=== PATIENT | male | born 1960 | race Caucasian/White ===

== ENCOUNTER 2018-06-02 13:36 | Inpatient (IN) | payer MEDICARE, OTHER, MEDICAID ==
[2018-06-02] MEDS ORDERED: DEXTROSE 50% 50 ML SYRINGE IV (14:00)
[2018-06-02 14:07] LABS: ADD MAN DIFF? NO
[2018-06-02 14:08] LABS: BASOPHILS % 0.3 % (0.0-2.0); EOSINOPHILS # 0.2 10^3/ul (0.0-0.5); EOSINOPHILS % 3.5 % (0.0-7.0); HEMATOCRIT 35.9 % (42.0-52.0); HEMOGLOBIN 11.9 g/dl (14.0-18.0); LYMPHOCYTES # 1.5 10^3/ul (0.8-2.9); LYMPHOCYTES % 23.9 % (15.0-51.0); MEAN CORPUSCULAR HEMOGLOBIN 30.4 pg (29.0-33.0); MEAN CORPUSCULAR HGB CONC 33.1 g/dl (32.0-37.0); MEAN CORPUSCULAR VOLUME 91.8 fl (82.0-101.0); MEAN PLATELET VOLUME 8.2 fl (7.4-10.4); MONOCYTE # 0.6 10^3/ul (0.3-0.9); MONOCYTES % 10.2 % (0.0-11.0); NEUTROPHIL # 3.8 10^3/ul (1.6-7.5); NEUTROPHILS % 61.8 % (39.0-77.0); PLATELET COUNT 142 10^3/UL (140-415); RED BLOOD COUNT 3.91 10^6/ul (4.70-6.10); RED CELL DISTRIBUTION WIDTH 12.6 % (11.5-14.5)
[2018-06-02 14:08] LABS: WHITE BLOOD COUNT 6.1 10^3/ul (4.8-10.8)
[2018-06-02] MEDS: ALBUTEROL 0.5% (NEB) 2.5 MG/0.5 ML AMP INH (14:09)
[2018-06-02 14:26] LABS: ALANINE AMINOTRANSFERASE 18 IU/L (13-69); ALBUMIN 4.4 g/dl (3.3-4.9); ALBUMIN/GLOBULIN RATIO 1.07; ALKALINE PHOSPHATASE 121 IU/L (42-121); ANION GAP 28 (8-16); ASPARTATE AMINO TRANSFERASE 15 IU/L (15-46); CALCIUM 10.5 mg/dl (8.4-10.2); CARBON DIOXIDE 25 mmol/L (21-31); CHLORIDE 95 mmol/L (97-110); CREATININE 10.43 mg/dl (0.61-1.24); GLUCOSE 138 mg/dl (70-220); MAGNESIUM 3.7 mg/dl (1.7-2.5); PHOSPHORUS 5.4 mg/dl (2.5-4.9); SODIUM 142 mmol/L (135-144); TOTAL PROTEIN 8.5 g/dl (6.1-8.1)
[2018-06-02 14:27] LABS: INR 0.96; PROTIME 12.9 Sec (11.9-14.9)
[2018-06-02 14:28] LABS: PARTIAL THROMBOPLASTIN TIME 31.8 Sec (25.0-35.0)
[2018-06-02 14:34] LABS: POTASSIUM 6.3 mmol/L (3.5-5.1)
[2018-06-02 14:35] LABS: BLOOD UREA NITROGEN 137 mg/dl (7-20)
[2018-06-02 14:36] LABS: TROPONIN-I < 0.012 ng/ml (0.000-0.120)
[2018-06-02] MEDS: ONDANSETRON 4 MG INJ IV (14:39)
[2018-06-02] MEDS: DEXTROSE 50% 50 ML SYRINGE IV (14:39)
[2018-06-02] MEDS: CA CHLORIDE 10% 10 ML SYRINGE IV (14:39)
[2018-06-02] MEDS: INSULIN REGULAR, HUMAN 100 UNIT/1 ML 3ML VIAL IVP (14:40)
[2018-06-02] MEDS ORDERED: ERTAPENEM SODIUM 0.5 GM in SOD CHLORIDE 0.9% 100 ML IVPB (18:00)
[2018-06-02] MEDS ORDERED: SEVELAMER CARBONATE 0.8 GM PKT PO ×2 (18:00→21:00)
[2018-06-02] MEDS: ERTAPENEM SODIUM 0.5 GM in SOD CHLORIDE 0.9% 100 ML IVPB (18:10)
[2018-06-02] MEDS ORDERED: HYDROCODONE/APAP (5/325) TAB PO ×2 (19:30→22:30)
[2018-06-02] MEDS: DORZOLAMIDE/TIMOLOL 10 ML OPH BOTH EYES (21:00)
[2018-06-02] MEDS: HYDROCODONE/APAP (5/325) TAB PO (21:20)
[2018-06-02] MEDS: SEVELAMER CARBONATE 800 MG TABLET PO (21:20)
[2018-06-02 21:40] LABS: HEPATITIS B SURFACE ANTIGEN NEGATIVE (NEGATIVE)
[2018-06-02] MEDS ORDERED: BISACODYL 10 MG SUPP PR (22:30)
[2018-06-02] MEDS ORDERED: NACL 0.9% 3 ML SYG IV (22:30)
[2018-06-03] MEDS: ACCU-CHEK XX (01:13)
[2018-06-03] MEDS: morphine 2 MG INJ IV ×4 (01:20→20:49)
[2018-06-03] MEDS ORDERED: GLUCAGON 1 MG INJ IM (01:30)
[2018-06-03] MEDS ORDERED: GLUCOSE GEL 15 GRAM TUBE BUCCAL (01:30)
[2018-06-03] MEDS ORDERED: DEXTROSE 50% 50 ML SYRINGE IV ×2 (01:30)
[2018-06-03] MEDS ORDERED: GLUCOSE GEL 15 GRAM TUBE PO ×2 (01:30)
[2018-06-03 06:46] LABS: ADD MAN DIFF? NO
[2018-06-03 06:54] LABS: BASOPHILS % 0.2 % (0.0-2.0); EOSINOPHILS # 0.1 10^3/ul (0.0-0.5); EOSINOPHILS % 0.7 % (0.0-7.0); HEMATOCRIT 33.3 % (42.0-52.0); HEMOGLOBIN 10.9 g/dl (14.0-18.0); MEAN CORPUSCULAR HEMOGLOBIN 29.6 pg (29.0-33.0); MEAN CORPUSCULAR HGB CONC 32.7 g/dl (32.0-37.0); MEAN CORPUSCULAR VOLUME 90.5 fl (82.0-101.0); MEAN PLATELET VOLUME 8.6 fl (7.4-10.4); MONOCYTE # 0.7 10^3/ul (0.3-0.9); MONOCYTES % 8.6 % (0.0-11.0); NEUTROPHIL # 6.3 10^3/ul (1.6-7.5); NEUTROPHILS % 78.3 % (39.0-77.0); PLATELET COUNT 132 10^3/UL (140-415); RED BLOOD COUNT 3.68 10^6/ul (4.70-6.10); RED CELL DISTRIBUTION WIDTH 12.6 % (11.5-14.5)
[2018-06-03 06:54] LABS: WHITE BLOOD COUNT 8.1 10^3/ul (4.8-10.8)
[2018-06-03 07:16] LABS: ALANINE AMINOTRANSFERASE 16 IU/L (13-69); ALBUMIN 4.1 g/dl (3.3-4.9); ALBUMIN/GLOBULIN RATIO 1.17; ALKALINE PHOSPHATASE 105 IU/L (42-121); ANION GAP 19 (8-16); ASPARTATE AMINO TRANSFERASE 22 IU/L (15-46); BILIRUBIN,INDIRECT 0.1 mg/dl (0-1.1); BILIRUBIN,TOTAL 0.1 mg/dl (0.2-1.3); BLOOD UREA NITROGEN 69 mg/dl (7-20); CALCIUM 9.5 mg/dl (8.4-10.2); CARBON DIOXIDE 30 mmol/L (21-31); CHLORIDE 98 mmol/L (97-110); CREATININE 6.13 mg/dl (0.61-1.24); GLUCOSE 94 mg/dl (70-220); POTASSIUM 5.4 mmol/L (3.5-5.1); SODIUM 142 mmol/L (135-144); TOTAL PROTEIN 7.6 g/dl (6.1-8.1)
[2018-06-03] MEDS: SEVELAMER CARBONATE 800 MG TABLET PO ×4 (07:47→20:47)
[2018-06-03] MEDS: INSULIN ASPART [NOVOLOG] 3 ML PEN SC ×4 (07:47→20:46)
[2018-06-03] MEDS: MULTIVIT/CA CARB/B CMPLX/FA TAB PO (08:45)
[2018-06-03] MEDS: FAMOTIDINE 20 MG TAB PO (08:45)
[2018-06-03] MEDS: DORZOLAMIDE/TIMOLOL 10 ML OPH BOTH EYES ×2 (08:45→20:47)
[2018-06-03] MEDS: NIFEdipine (XL) 90 MG TAB PO (08:46)
[2018-06-03] MEDS: HEPARIN 5,000 UNIT/0.5 ML VIAL SC ×2 (08:52→20:48)
[2018-06-03 09:30] LABS: HEMOGLOBIN A1C 6.1 % (0-5.9)
[2018-06-03] MEDS: hydrALAzine 20 MG INJ IV ×2 (13:21→22:51)
[2018-06-03] MEDS: ERTAPENEM SODIUM 0.5 GM in SOD CHLORIDE 0.9% 100 ML IVPB (17:29)
[2018-06-03] MEDS: ONDANSETRON 4 MG INJ IV (17:45)
[2018-06-04] MEDS: morphine 2 MG INJ IV ×6 (00:41→22:36)
[2018-06-04] MEDS: ZOLPIDEM 5 MG TAB PO (00:41)
[2018-06-04] MEDS: ACCU-CHEK XX (02:00)
[2018-06-04 06:52] LABS: ADD MAN DIFF? NO
[2018-06-04 06:57] LABS: WHITE BLOOD COUNT 5.9 10^3/ul (4.8-10.8)
[2018-06-04 06:57] LABS: BASOPHILS % 0.7 % (0.0-2.0); EOSINOPHILS # 0.2 10^3/ul (0.0-0.5); EOSINOPHILS % 2.9 % (0.0-7.0); HEMATOCRIT 32.4 % (42.0-52.0); HEMOGLOBIN 10.4 g/dl (14.0-18.0); LYMPHOCYTES # 1.1 10^3/ul (0.8-2.9); LYMPHOCYTES % 18.9 % (15.0-51.0); MEAN CORPUSCULAR HEMOGLOBIN 29.5 pg (29.0-33.0); MEAN CORPUSCULAR HGB CONC 32.1 g/dl (32.0-37.0); MEAN PLATELET VOLUME 8.4 fl (7.4-10.4); MONOCYTE # 0.7 10^3/ul (0.3-0.9); MONOCYTES % 11.2 % (0.0-11.0); NEUTROPHIL # 3.9 10^3/ul (1.6-7.5); NEUTROPHILS % 66.1 % (39.0-77.0); PLATELET COUNT 134 10^3/UL (140-415); RED BLOOD COUNT 3.52 10^6/ul (4.70-6.10); RED CELL DISTRIBUTION WIDTH 12.7 % (11.5-14.5)
[2018-06-04] MEDS: INSULIN ASPART [NOVOLOG] 3 ML PEN SC ×4 (07:55→21:00)
[2018-06-04 07:56] LABS: ANION GAP 20 (8-16); BLOOD UREA NITROGEN 90 mg/dl (7-20); CALCIUM 9.3 mg/dl (8.4-10.2); CARBON DIOXIDE 28 mmol/L (21-31); CHLORIDE 97 mmol/L (97-110); CREATININE 8.18 mg/dl (0.61-1.24); GLUCOSE 94 mg/dl (70-220); SODIUM 139 mmol/L (135-144)
[2018-06-04 08:06] LABS: POTASSIUM 5.5 mmol/L (3.5-5.1)
[2018-06-04] MEDS: DORZOLAMIDE/TIMOLOL 10 ML OPH BOTH EYES ×2 (09:00→21:00)
[2018-06-04] MEDS: HEPARIN 5,000 UNIT/0.5 ML VIAL SC ×2 (09:00→21:38)
[2018-06-04] MEDS: SEVELAMER CARBONATE 800 MG TABLET PO ×5 (09:03→21:23)
[2018-06-04] MEDS: MULTIVIT/CA CARB/B CMPLX/FA TAB PO (09:05)
[2018-06-04] MEDS: NIFEdipine (XL) 90 MG TAB PO (09:05)
[2018-06-04] MEDS: FAMOTIDINE 20 MG TAB PO (09:05)
[2018-06-04] MEDS ORDERED: MUPIROCIN 2% 22 GM OINT TOP (11:30)
[2018-06-04] MEDS ORDERED: VANCOMYCIN IV PER PHARMACY XX (14:30)
[2018-06-04] MEDS: LIDOCAINE 1% (MDV) 20 ML INJ INJ (16:07)
[2018-06-04] MEDS: MUPIROCIN 2% 22 GM OINT TOP (21:23)
[2018-06-04] MEDS: VANCOMYCIN 1.75 GM in SOD CHLORIDE 0.9% 500 ML IVPB (21:24)
[2018-06-05] MEDS: ACETAMINOPHEN 325 MG TAB PO ×3 (00:07→20:59)
[2018-06-05] MEDS: ERTAPENEM SODIUM 0.5 GM in SOD CHLORIDE 0.9% 100 ML IVPB ×2 (01:53→18:05)
[2018-06-05] MEDS: ACCU-CHEK XX (01:57)
[2018-06-05] MEDS: morphine 2 MG INJ IV ×3 (03:06→22:59)
[2018-06-05 06:39] LABS: ADD MAN DIFF? NO
[2018-06-05 06:58] LABS: BASOPHILS % 0.2 % (0.0-2.0); EOSINOPHILS # 0.2 10^3/ul (0.0-0.5); EOSINOPHILS % 2.7 % (0.0-7.0); HEMATOCRIT 32.8 % (42.0-52.0); HEMOGLOBIN 10.6 g/dl (14.0-18.0); LYMPHOCYTES % 18.1 % (15.0-51.0); MEAN CORPUSCULAR HEMOGLOBIN 30.1 pg (29.0-33.0); MEAN CORPUSCULAR HGB CONC 32.3 g/dl (32.0-37.0); MEAN CORPUSCULAR VOLUME 93.2 fl (82.0-101.0); MEAN PLATELET VOLUME 8.7 fl (7.4-10.4); MONOCYTE # 0.7 10^3/ul (0.3-0.9); MONOCYTES % 11.9 % (0.0-11.0); NEUTROPHIL # 3.8 10^3/ul (1.6-7.5); NEUTROPHILS % 66.7 % (39.0-77.0); PLATELET COUNT 128 10^3/UL (140-415); RED BLOOD COUNT 3.52 10^6/ul (4.70-6.10); RED CELL DISTRIBUTION WIDTH 12.2 % (11.5-14.5)
[2018-06-05 06:58] LABS: WHITE BLOOD COUNT 5.6 10^3/ul (4.8-10.8)
[2018-06-05 07:23] LABS: ANION GAP 17 (8-16); BLOOD UREA NITROGEN 47 mg/dl (7-20); CALCIUM 9.4 mg/dl (8.4-10.2); CARBON DIOXIDE 29 mmol/L (21-31); CHLORIDE 97 mmol/L (97-110); GLUCOSE 94 mg/dl (70-220); POTASSIUM 4.7 mmol/L (3.5-5.1); SODIUM 138 mmol/L (135-144)
[2018-06-05] MEDS: INSULIN ASPART [NOVOLOG] 3 ML PEN SC ×4 (07:55→21:00)
[2018-06-05] MEDS: SEVELAMER CARBONATE 800 MG TABLET PO ×4 (08:03→21:00)
[2018-06-05] MEDS: FAMOTIDINE 20 MG TAB PO (08:04)
[2018-06-05] MEDS: NIFEdipine (XL) 90 MG TAB PO (08:07)
[2018-06-05] MEDS: HEPARIN 5,000 UNIT/0.5 ML VIAL SC ×2 (08:11→21:00)
[2018-06-05] MEDS: MUPIROCIN 2% 22 GM OINT TOP ×2 (08:58→21:00)
[2018-06-05] MEDS: MULTIVIT/CA CARB/B CMPLX/FA TAB PO (08:58)
[2018-06-05] MEDS: DORZOLAMIDE/TIMOLOL 10 ML OPH BOTH EYES ×2 (08:58→20:59)
[2018-06-05] MEDS ORDERED: ACETAMINOPHEN 325 MG TAB PO (10:30)
[2018-06-05] MEDS: ONDANSETRON 4 MG INJ IV (17:21)
[2018-06-05] MEDS: hydrALAzine 20 MG INJ IV (20:53)
[2018-06-05] MEDS: DOCUSATE SODIUM 100 MG CAP PO (20:59)
[2018-06-05] MEDS: NA POLYST SULFON 15 GM/60 ML BTL PO (21:00)
[2018-06-06] MEDS: ACCU-CHEK XX (02:00)
[2018-06-06 06:52] LABS: ADD MAN DIFF? NO
[2018-06-06 06:54] LABS: BASOPHILS % 0.6 % (0.0-2.0); EOSINOPHILS # 0.2 10^3/ul (0.0-0.5); EOSINOPHILS % 3.1 % (0.0-7.0); HEMATOCRIT 32.6 % (42.0-52.0); HEMOGLOBIN 10.7 g/dl (14.0-18.0); LYMPHOCYTES # 1.1 10^3/ul (0.8-2.9); LYMPHOCYTES % 21.2 % (15.0-51.0); MEAN CORPUSCULAR HEMOGLOBIN 30.5 pg (29.0-33.0); MEAN CORPUSCULAR HGB CONC 32.8 g/dl (32.0-37.0); MEAN CORPUSCULAR VOLUME 92.9 fl (82.0-101.0); MEAN PLATELET VOLUME 8.6 fl (7.4-10.4); MONOCYTE # 0.7 10^3/ul (0.3-0.9); MONOCYTES % 13.6 % (0.0-11.0); NEUTROPHIL # 3.2 10^3/ul (1.6-7.5); NEUTROPHILS % 61.3 % (39.0-77.0); PLATELET COUNT 126 10^3/UL (140-415); RED BLOOD COUNT 3.51 10^6/ul (4.70-6.10); RED CELL DISTRIBUTION WIDTH 12.2 % (11.5-14.5)
[2018-06-06 06:54] LABS: WHITE BLOOD COUNT 5.1 10^3/ul (4.8-10.8)
[2018-06-06 07:26] LABS: ALANINE AMINOTRANSFERASE 35 IU/L (13-69); ALBUMIN 3.6 g/dl (3.3-4.9); ALBUMIN/GLOBULIN RATIO 1.12; ALKALINE PHOSPHATASE 90 IU/L (42-121); ANION GAP 18 (8-16); ASPARTATE AMINO TRANSFERASE 27 IU/L (15-46); BILIRUBIN,INDIRECT 0.1 mg/dl (0-1.1); BILIRUBIN,TOTAL 0.1 mg/dl (0.2-1.3); BLOOD UREA NITROGEN 63 mg/dl (7-20); CALCIUM 9.1 mg/dl (8.4-10.2); CARBON DIOXIDE 29 mmol/L (21-31); CHLORIDE 97 mmol/L (97-110); CREATININE 7.44 mg/dl (0.61-1.24); GLUCOSE 115 mg/dl (70-220); POTASSIUM 5.3 mmol/L (3.5-5.1); SODIUM 139 mmol/L (135-144); TOTAL PROTEIN 6.8 g/dl (6.1-8.1)
[2018-06-06 07:29] LABS: VANCOMYCIN,RANDOM 15.8 ug/ml
[2018-06-06] MEDS: INSULIN ASPART [NOVOLOG] 3 ML PEN SC ×4 (08:00→20:10)
[2018-06-06] MEDS: DORZOLAMIDE/TIMOLOL 10 ML OPH BOTH EYES ×2 (08:19→20:26)
[2018-06-06] MEDS: SEVELAMER CARBONATE 800 MG TABLET PO ×4 (08:19→20:10)
[2018-06-06] MEDS: FAMOTIDINE 20 MG TAB PO (08:20)
[2018-06-06] MEDS: MULTIVIT/CA CARB/B CMPLX/FA TAB PO (08:20)
[2018-06-06] MEDS: HEPARIN 5,000 UNIT/0.5 ML VIAL SC ×2 (08:20→20:13)
[2018-06-06] MEDS: MUPIROCIN 2% 22 GM OINT TOP ×2 (08:21→20:32)
[2018-06-06] MEDS: NIFEdipine (XL) 90 MG TAB PO (08:21)
[2018-06-06] MEDS: NA POLYST SULFON 15 GM/60 ML BTL PO (08:23)
[2018-06-06] MEDS: LIDOCAINE 1% (MDV) 10 ML INJ INJ (12:14)
[2018-06-06] MEDS: morphine 2 MG INJ IV ×2 (12:19→20:22)
[2018-06-06] MEDS: ACETAMINOPHEN 325 MG TAB PO (15:10)
[2018-06-06] MEDS: VANCOMYCIN 1 GM 250 ML IVPB (16:31)
[2018-06-06] MEDS: EPOETIN 4000 UNITS/1 ML INJ (ESRD) IV (16:34)
[2018-06-06] MEDS: ERTAPENEM SODIUM 0.5 GM in SOD CHLORIDE 0.9% 100 ML IVPB (18:37)
[2018-06-06] MEDS: DOCUSATE SODIUM 100 MG CAP PO (20:10)
[2018-06-07] MEDS: ACCU-CHEK XX (02:00)
[2018-06-07] MEDS: morphine 2 MG INJ IV ×2 (05:23→10:57)
[2018-06-07] MEDS: hydrALAzine 20 MG INJ IV (05:32)
[2018-06-07 06:16] LABS: ADD MAN DIFF? NO
[2018-06-07 06:27] LABS: WHITE BLOOD COUNT 5.4 10^3/ul (4.8-10.8)
[2018-06-07 06:27] LABS: BASOPHILS % 0.2 % (0.0-2.0); EOSINOPHILS # 0.1 10^3/ul (0.0-0.5); EOSINOPHILS % 1.7 % (0.0-7.0); HEMATOCRIT 33.2 % (42.0-52.0); HEMOGLOBIN 10.9 g/dl (14.0-18.0); LYMPHOCYTES # 0.9 10^3/ul (0.8-2.9); LYMPHOCYTES % 17.2 % (15.0-51.0); MEAN CORPUSCULAR HEMOGLOBIN 30.4 pg (29.0-33.0); MEAN CORPUSCULAR HGB CONC 32.8 g/dl (32.0-37.0); MEAN CORPUSCULAR VOLUME 92.5 fl (82.0-101.0); MEAN PLATELET VOLUME 8.5 fl (7.4-10.4); MONOCYTE # 0.7 10^3/ul (0.3-0.9); MONOCYTES % 12.8 % (0.0-11.0); NEUTROPHIL # 3.7 10^3/ul (1.6-7.5); NEUTROPHILS % 67.9 % (39.0-77.0); PLATELET COUNT 122 10^3/UL (140-415); RED BLOOD COUNT 3.59 10^6/ul (4.70-6.10); RED CELL DISTRIBUTION WIDTH 11.9 % (11.5-14.5)
[2018-06-07 06:52] LABS: ANION GAP 18 (8-16); BLOOD UREA NITROGEN 36 mg/dl (7-20); CALCIUM 9.5 mg/dl (8.4-10.2); CARBON DIOXIDE 30 mmol/L (21-31); CHLORIDE 96 mmol/L (97-110); CREATININE 5.33 mg/dl (0.61-1.24); GLUCOSE 89 mg/dl (70-220); POTASSIUM 4.8 mmol/L (3.5-5.1); SODIUM 139 mmol/L (135-144)
[2018-06-07] MEDS: SEVELAMER CARBONATE 800 MG TABLET PO ×4 (07:35→20:27)
[2018-06-07] MEDS: ACETAMINOPHEN 325 MG TAB PO (07:51)
[2018-06-07] MEDS: NIFEdipine (XL) 90 MG TAB PO (07:51)
[2018-06-07] MEDS: INSULIN ASPART [NOVOLOG] 3 ML PEN SC ×4 (07:52→20:27)
[2018-06-07] MEDS: FAMOTIDINE 20 MG TAB PO (07:52)
[2018-06-07] MEDS: DORZOLAMIDE/TIMOLOL 10 ML OPH BOTH EYES ×2 (07:52→20:26)
[2018-06-07] MEDS: HEPARIN 5,000 UNIT/0.5 ML VIAL SC ×2 (07:53→20:32)
[2018-06-07] MEDS: MUPIROCIN 2% 22 GM OINT TOP ×2 (07:53→20:28)
[2018-06-07] MEDS: MULTIVIT/CA CARB/B CMPLX/FA TAB PO (07:53)
[2018-06-07] MEDS: ERTAPENEM SODIUM 0.5 GM in SOD CHLORIDE 0.9% 100 ML IVPB (17:18)
[2018-06-07] MEDS: DOCUSATE SODIUM 100 MG CAP PO (20:27)
[2018-06-08] MEDS: ACCU-CHEK XX (01:25)
[2018-06-08] MEDS: morphine 2 MG INJ IV (02:16)
[2018-06-08 04:57] LABS: ADD MAN DIFF? NO
[2018-06-08 05:03] LABS: BASOPHILS % 0.4 % (0.0-2.0); EOSINOPHILS # 0.1 10^3/ul (0.0-0.5); EOSINOPHILS % 2.1 % (0.0-7.0); HEMATOCRIT 31.7 % (42.0-52.0); HEMOGLOBIN 10.3 g/dl (14.0-18.0); LYMPHOCYTES # 1.1 10^3/ul (0.8-2.9); LYMPHOCYTES % 21.3 % (15.0-51.0); MEAN CORPUSCULAR HEMOGLOBIN 29.9 pg (29.0-33.0); MEAN CORPUSCULAR HGB CONC 32.5 g/dl (32.0-37.0); MEAN CORPUSCULAR VOLUME 91.9 fl (82.0-101.0); MEAN PLATELET VOLUME 8.5 fl (7.4-10.4); MONOCYTE # 0.7 10^3/ul (0.3-0.9); MONOCYTES % 13.8 % (0.0-11.0); NEUTROPHIL # 3.2 10^3/ul (1.6-7.5); PLATELET COUNT 118 10^3/UL (140-415); RED BLOOD COUNT 3.45 10^6/ul (4.70-6.10); RED CELL DISTRIBUTION WIDTH 12.2 % (11.5-14.5)
[2018-06-08 05:03] LABS: WHITE BLOOD COUNT 5.2 10^3/ul (4.8-10.8)
[2018-06-08 05:31] LABS: ANION GAP 16 (8-16); BLOOD UREA NITROGEN 50 mg/dl (7-20); CALCIUM 9.3 mg/dl (8.4-10.2); CARBON DIOXIDE 29 mmol/L (21-31); CHLORIDE 100 mmol/L (97-110); CREATININE 7.33 mg/dl (0.61-1.24); GLUCOSE 91 mg/dl (70-220); POTASSIUM 5.3 mmol/L (3.5-5.1); SODIUM 140 mmol/L (135-144)
[2018-06-08] MEDS: SEVELAMER CARBONATE 800 MG TABLET PO ×4 (07:35→20:43)
[2018-06-08] MEDS: INSULIN ASPART [NOVOLOG] 3 ML PEN SC ×4 (08:00→20:55)
[2018-06-08] MEDS: NIFEdipine (XL) 90 MG TAB PO (08:21)
[2018-06-08] MEDS: ACETAMINOPHEN 325 MG TAB PO ×2 (08:21→23:38)
[2018-06-08] MEDS: FAMOTIDINE 20 MG TAB PO (08:24)
[2018-06-08] MEDS: DORZOLAMIDE/TIMOLOL 10 ML OPH BOTH EYES ×2 (08:24→20:43)
[2018-06-08] MEDS: MULTIVIT/CA CARB/B CMPLX/FA TAB PO (08:25)
[2018-06-08] MEDS: HEPARIN 5,000 UNIT/0.5 ML VIAL SC ×2 (08:25→20:54)
[2018-06-08] MEDS: MUPIROCIN 2% 22 GM OINT TOP ×2 (08:25→20:43)
[2018-06-08] MEDS: DOCUSATE SODIUM 100 MG CAP PO (20:43)
[2018-06-08] MEDS: hydrALAzine 20 MG INJ IV (20:45)
[2018-06-09] MEDS: morphine 2 MG INJ IV ×2 (01:41→20:47)
[2018-06-09] MEDS: ACCU-CHEK XX (02:00)
[2018-06-09] MEDS: hydrALAzine 20 MG INJ IV ×2 (02:48→10:36)
[2018-06-09 05:39] LABS: ADD MAN DIFF? NO
[2018-06-09 05:45] LABS: WHITE BLOOD COUNT 5.5 10^3/ul (4.8-10.8)
[2018-06-09 05:45] LABS: BASOPHILS % 0.4 % (0.0-2.0); EOSINOPHILS # 0.2 10^3/ul (0.0-0.5); EOSINOPHILS % 3.2 % (0.0-7.0); HEMATOCRIT 30.7 % (42.0-52.0); HEMOGLOBIN 10.1 g/dl (14.0-18.0); LYMPHOCYTES # 1.1 10^3/ul (0.8-2.9); LYMPHOCYTES % 19.1 % (15.0-51.0); MEAN CORPUSCULAR HEMOGLOBIN 30.1 pg (29.0-33.0); MEAN CORPUSCULAR HGB CONC 32.9 g/dl (32.0-37.0); MEAN CORPUSCULAR VOLUME 91.4 fl (82.0-101.0); MEAN PLATELET VOLUME 8.4 fl (7.4-10.4); MONOCYTE # 0.8 10^3/ul (0.3-0.9); MONOCYTES % 14.3 % (0.0-11.0); NEUTROPHIL # 3.5 10^3/ul (1.6-7.5); NEUTROPHILS % 62.8 % (39.0-77.0); PLATELET COUNT 121 10^3/UL (140-415); RED BLOOD COUNT 3.36 10^6/ul (4.70-6.10); RED CELL DISTRIBUTION WIDTH 12.3 % (11.5-14.5)
[2018-06-09 06:33] LABS: VANCOMYCIN,RANDOM 17.4 ug/ml
[2018-06-09] MEDS: SEVELAMER CARBONATE 800 MG TABLET PO ×4 (07:46→20:45)
[2018-06-09] MEDS: INSULIN ASPART [NOVOLOG] 3 ML PEN SC ×4 (07:46→20:40)
[2018-06-09] MEDS: MUPIROCIN 2% 22 GM OINT TOP ×2 (08:32→20:50)
[2018-06-09] MEDS: FAMOTIDINE 20 MG TAB PO (08:32)
[2018-06-09] MEDS: MULTIVIT/CA CARB/B CMPLX/FA TAB PO (08:32)
[2018-06-09] MEDS: NIFEdipine (XL) 90 MG TAB PO (08:32)
[2018-06-09] MEDS: DORZOLAMIDE/TIMOLOL 10 ML OPH BOTH EYES ×2 (08:32→20:43)
[2018-06-09] MEDS: HEPARIN 5,000 UNIT/0.5 ML VIAL SC ×2 (08:36→20:35)
[2018-06-09] MEDS: LIDOCAINE 1% (MDV) 10 ML INJ INFIL (11:02)
[2018-06-09] MEDS: LIDOCAINE 1% (MPF) 5 ML VIAL INFIL (12:36)
[2018-06-09] MEDS: EPOETIN 4000 UNITS/1 ML INJ (ESRD) IV (17:42)
[2018-06-09] MEDS: VANCOMYCIN 750 MG in SOD CHLORIDE 0.9% 150 ML IVPB ×2 (17:42→17:55)
[2018-06-09] MEDS: ACETAMINOPHEN 325 MG TAB PO (19:23)
[2018-06-09] MEDS: ONDANSETRON 4 MG INJ IV (20:36)
[2018-06-09] MEDS: DOCUSATE SODIUM 100 MG CAP PO (20:45)
[2018-06-09] MEDS: METOCLOPRAMIDE 10 MG INJ IV (22:08)
[2018-06-10] MEDS: hydrALAzine 20 MG INJ IV ×2 (01:39→08:55)
[2018-06-10] MEDS: ACETAMINOPHEN 325 MG TAB PO (01:39)
[2018-06-10] MEDS: ACCU-CHEK XX (01:46)
[2018-06-10] MEDS: PANTOPRAZOLE (EC) 40 MG TAB PO (05:01)
[2018-06-10] MEDS: INSULIN ASPART [NOVOLOG] 3 ML PEN SC ×3 (08:00→18:05)
[2018-06-10] MEDS: SEVELAMER CARBONATE 800 MG TABLET PO ×3 (08:50→17:46)
[2018-06-10] MEDS: NIFEdipine (XL) 90 MG TAB PO (08:50)
[2018-06-10] MEDS: DORZOLAMIDE/TIMOLOL 10 ML OPH BOTH EYES (08:51)
[2018-06-10] MEDS: MULTIVIT/CA CARB/B CMPLX/FA TAB PO (08:51)
[2018-06-10] MEDS: HEPARIN 5,000 UNIT/0.5 ML VIAL SC (08:54)
[2018-06-10] MEDS: MUPIROCIN 2% 22 GM OINT TOP (08:54)
[2018-06-10] MEDS: morphine 2 MG INJ IV ×2 (08:55→14:11)
[2018-06-10 11:58] LABS: ADD MAN DIFF? NO
[2018-06-10 12:09] LABS: BASOPHILS % 0.2 % (0.0-2.0); EOSINOPHILS # 0.1 10^3/ul (0.0-0.5); HEMATOCRIT 30.6 % (42.0-52.0); HEMOGLOBIN 9.9 g/dl (14.0-18.0); LYMPHOCYTES # 1.1 10^3/ul (0.8-2.9); LYMPHOCYTES % 21.1 % (15.0-51.0); MEAN CORPUSCULAR HEMOGLOBIN 30.3 pg (29.0-33.0); MEAN CORPUSCULAR HGB CONC 32.4 g/dl (32.0-37.0); MEAN CORPUSCULAR VOLUME 93.6 fl (82.0-101.0); MEAN PLATELET VOLUME 8.5 fl (7.4-10.4); MONOCYTE # 0.7 10^3/ul (0.3-0.9); NEUTROPHIL # 3.2 10^3/ul (1.6-7.5); NEUTROPHILS % 62.3 % (39.0-77.0); PLATELET COUNT 138 10^3/UL (140-415); RED BLOOD COUNT 3.27 10^6/ul (4.70-6.10); RED CELL DISTRIBUTION WIDTH 12.2 % (11.5-14.5)
[2018-06-10 12:09] LABS: WHITE BLOOD COUNT 5.1 10^3/ul (4.8-10.8)
[2018-06-10] MEDS ORDERED: NIFEdipine (XL) 90 MG TAB PO ×2 (12:24→21:00)
[2018-06-10 12:25] LABS: ALANINE AMINOTRANSFERASE 41 IU/L (13-69); ALBUMIN 3.7 g/dl (3.3-4.9); ALBUMIN/GLOBULIN RATIO 1.23; ALKALINE PHOSPHATASE 94 IU/L (42-121); AMYLASE 53 U/L (11-123); ANION GAP 16 (8-16); ASPARTATE AMINO TRANSFERASE 25 IU/L (15-46); BILIRUBIN,INDIRECT 0.1 mg/dl (0-1.1); BILIRUBIN,TOTAL 0.1 mg/dl (0.2-1.3); BLOOD UREA NITROGEN 38 mg/dl (7-20); CALCIUM 9.5 mg/dl (8.4-10.2); CARBON DIOXIDE 29 mmol/L (21-31); CHLORIDE 98 mmol/L (97-110); CREATININE 7.05 mg/dl (0.61-1.24); GLUCOSE 133 mg/dl (70-220); LIPASE 99 U/L (23-300); POTASSIUM 5.1 mmol/L (3.5-5.1); SODIUM 138 mmol/L (135-144); TOTAL PROTEIN 6.7 g/dl (6.1-8.1)
[2018-06-10] MEDS: ATENOLOL 100 MG TAB PO (14:10)
[2018-06-10] MEDS ORDERED: NIFEdipine (XL) 60 MG TAB PO (21:00)
== END 2018-06-10 19:40 | DRG 640 ==
LOC: PP2 06-05 10:41 → TEL 06-03 22:47 → E/R 13:36 → TEL 06-03 23:03
PROVIDERS: Internal Medicine
PROC: 5A1D70Z Performance of Urinary Filtration, Intermittent, Less than 6 Hours Per Day (ICD-10-PCS; principal; 2018-06-02)
DX: E87.5 Hyperkalemia (principal); N18.6 End stage renal disease; J18.9 Pneumonia, unspecified organism; I12.0 Hypertensive chronic kidney disease with stage 5 chronic kidney disease or end stage renal disease; E11.22 Type 2 diabetes mellitus with diabetic chronic kidney disease; D63.1 Anemia in chronic kidney disease; G89.29 Other chronic pain; M54.5 Low back pain; F41.9 Anxiety disorder, unspecified; H54.8 Legal blindness, as defined in USA; Z22.322 Carrier or suspected carrier of Methicillin resistant Staphylococcus aureus; Z91.14 Patient's other noncompliance with medication regimen; Z99.2 Dependence on renal dialysis
CPT/HCPCS: 36415; 71045; 80048; 80053; 80202; 82150; 82962; 83036; 83690; 83735; 84100; 84484; 85025; 85610; 85730; 87081; 87340; 90935; 93005; 94664; 96374; 96375; 97116; 97162; 97530; 99291-25

== ENCOUNTER 2018-12-05 21:39 | Inpatient (IN) | payer MEDICARE, OTHER ==
[2018-12-05] MEDS: ONDANSETRON 4 MG INJ IV (22:04)
[2018-12-05] MEDS: morphine 4 MG/ML VIAL IV (22:05)
[2018-12-05 22:11] LABS: ADD MAN DIFF? NO
[2018-12-05 22:13] LABS: BASOPHILS % 0.3 % (0.0-2.0); EOSINOPHILS # 0.2 10^3/ul (0.0-0.5); EOSINOPHILS % 1.7 % (0.0-7.0); HEMATOCRIT 36.4 % (42.0-52.0); HEMOGLOBIN 11.5 g/dl (14.0-18.0); LYMPHOCYTES # 0.9 10^3/ul (0.8-2.9); LYMPHOCYTES % 7.9 % (15.0-51.0); MEAN CORPUSCULAR HEMOGLOBIN 30.7 pg (29.0-33.0); MEAN CORPUSCULAR HGB CONC 31.6 g/dl (32.0-37.0); MEAN CORPUSCULAR VOLUME 97.1 fl (82.0-101.0); MEAN PLATELET VOLUME 8.7 fl (7.4-10.4); MONOCYTE # 0.9 10^3/ul (0.3-0.9); MONOCYTES % 7.6 % (0.0-11.0); NEUTROPHIL # 9.5 10^3/ul (1.6-7.5); PLATELET COUNT 210 10^3/UL (140-415); RED BLOOD COUNT 3.75 10^6/ul (4.70-6.10); RED CELL DISTRIBUTION WIDTH 13.1 % (11.5-14.5)
[2018-12-05 22:13] LABS: WHITE BLOOD COUNT 11.6 10^3/ul (4.8-10.8)
[2018-12-05 22:34] LABS: ALANINE AMINOTRANSFERASE 8 IU/L (13-69); ALBUMIN 4.4 g/dl (3.3-4.9); ALBUMIN/GLOBULIN RATIO 1.04; ALKALINE PHOSPHATASE 148 IU/L (42-121); ANION GAP 20 (5-13); ASPARTATE AMINO TRANSFERASE 14 IU/L (15-46); BLOOD UREA NITROGEN 95 mg/dl (7-20); CALCIUM 10.8 mg/dl (8.4-10.2); CARBON DIOXIDE 23 mmol/L (21-31); CHLORIDE 94 mmol/L (97-110); CREATININE 8.14 mg/dl (0.61-1.24); Estimated GFR 7 mL/min (>60); GLUCOSE 241 mg/dl (70-220); LIPASE 151 U/L (23-300); POTASSIUM 5.9 mmol/L (3.5-5.1); SODIUM 137 mmol/L (135-144); TOTAL PROTEIN 8.6 g/dl (6.1-8.1)
[2018-12-05] MEDS: NA BICARBONATE 8.4% 50 ML SYG IV (22:53)
[2018-12-05] MEDS: CA CHLORIDE 10% 10 ML SYRINGE IV (22:53)
[2018-12-06] MEDS ORDERED: ONDANSETRON 4 MG INJ IV
[2018-12-06] MEDS ORDERED: ACETAMINOPHEN 325 MG TAB PO
[2018-12-06] MEDS: morphine 4 MG/ML VIAL IV ×5 (00:10→22:08)
[2018-12-06] MEDS ORDERED: BISACODYL 10 MG SUPP PR (02:00)
[2018-12-06] MEDS: HYDROCODONE/APAP (5/325) TAB PO ×4 (02:46→22:36)
[2018-12-06] MEDS: MULTIVIT/CA CARB/B CMPLX/FA TAB PO (08:33)
[2018-12-06] MEDS: SEVELAMER CARBONATE 0.8 GM PKT PO ×4 (08:34→20:19)
[2018-12-06] MEDS: CINACALCET 30 MG TAB PO ×2 (08:34→20:20)
[2018-12-06] MEDS: morphine (ER) 30 MG TAB PO (08:35)
[2018-12-06] MEDS: NA POLYST SULFON 15 GM/60 ML BTL PO ×2 (08:35→21:41)
[2018-12-06] MEDS: DORZOLAMIDE/TIMOLOL 10 ML OPH BOTH EYES ×2 (08:35→20:21)
[2018-12-06] MEDS: ATENOLOL 100 MG TAB PO (08:36)
[2018-12-06] MEDS: ACETAMINOPHEN 325 MG TAB PO (15:19)
[2018-12-06] MEDS: DOCUSATE SODIUM 100 MG CAP PO (20:20)
[2018-12-06] MEDS: HEPARIN 5,000 UNIT/1 ML VIAL SC (20:26)
[2018-12-07] MEDS: morphine 4 MG/ML VIAL IV ×3 (02:13→14:09)
[2018-12-07] MEDS ORDERED: ONDANSETRON 4 MG INJ (04:26)
[2018-12-07] MEDS: ONDANSETRON 4 MG INJ IV (04:29)
[2018-12-07 06:35] LABS: ADD MAN DIFF? NO
[2018-12-07] MEDS: HYDROCODONE/APAP (5/325) TAB PO ×3 (06:37→21:06)
[2018-12-07 06:54] LABS: BASOPHILS % 0.2 % (0.0-2.0); EOSINOPHILS # 0.2 10^3/ul (0.0-0.5); EOSINOPHILS % 1.2 % (0.0-7.0); HEMATOCRIT 31.8 % (42.0-52.0); HEMOGLOBIN 10.1 g/dl (14.0-18.0); LYMPHOCYTES # 0.9 10^3/ul (0.8-2.9); LYMPHOCYTES % 6.3 % (15.0-51.0); MEAN CORPUSCULAR HEMOGLOBIN 31.3 pg (29.0-33.0); MEAN CORPUSCULAR HGB CONC 31.8 g/dl (32.0-37.0); MEAN CORPUSCULAR VOLUME 98.5 fl (82.0-101.0); MEAN PLATELET VOLUME 8.7 fl (7.4-10.4); MONOCYTE # 0.9 10^3/ul (0.3-0.9); MONOCYTES % 6.4 % (0.0-11.0); NEUTROPHIL # 11.9 10^3/ul (1.6-7.5); NEUTROPHILS % 85.3 % (39.0-77.0); PLATELET COUNT 194 10^3/UL (140-415); RED BLOOD COUNT 3.23 10^6/ul (4.70-6.10)
[2018-12-07 07:10] LABS: ANION GAP 18 (5-13); CALCIUM 10.1 mg/dl (8.4-10.2); CARBON DIOXIDE 24 mmol/L (21-31); CHLORIDE 97 mmol/L (97-110); CREATININE 10.55 mg/dl (0.61-1.24); Estimated GFR 5 mL/min (>60); GLUCOSE 125 mg/dl (70-220); SODIUM 139 mmol/L (135-144)
[2018-12-07 07:19] LABS: URIC ACID 4.9 mg/dl (3.1-7.9)
[2018-12-07 07:33] LABS: BLOOD UREA NITROGEN 122 mg/dl (7-20); POTASSIUM 6.1 mmol/L (3.5-5.1)
[2018-12-07] MEDS: CINACALCET 30 MG TAB PO ×2 (08:41→21:06)
[2018-12-07] MEDS: SEVELAMER CARBONATE 0.8 GM PKT PO ×4 (08:42→21:04)
[2018-12-07] MEDS: NA POLYST SULFON 15 GM/60 ML BTL PO ×3 (08:42→21:07)
[2018-12-07] MEDS: DORZOLAMIDE/TIMOLOL 10 ML OPH BOTH EYES ×2 (08:42→21:07)
[2018-12-07] MEDS: ATENOLOL 100 MG TAB PO (08:43)
[2018-12-07] MEDS: MULTIVIT/CA CARB/B CMPLX/FA TAB PO (08:43)
[2018-12-07] MEDS: HEPARIN 5,000 UNIT/1 ML VIAL SC ×2 (08:49→21:15)
[2018-12-07] MEDS: morphine (ER) 30 MG TAB PO (08:49)
[2018-12-07] MEDS ORDERED: SODIUM CHLORIDE 0.9% 1L BAG IV (09:00)
[2018-12-07 10:17] LABS: HEPATITIS B SURFACE ANTIGEN NEGATIVE (NEGATIVE)
[2018-12-07] MEDS: ACETAMINOPHEN 325 MG TAB PO (15:46)
[2018-12-07] MEDS: LACTULOSE 30ML CUP PO (16:14)
[2018-12-07] MEDS: DOCUSATE SODIUM 100 MG CAP PO (21:06)
[2018-12-08] MEDS: morphine 4 MG/ML VIAL IV ×2 (02:25→20:22)
[2018-12-08 05:41] LABS: ADD MAN DIFF? NO
[2018-12-08 05:47] LABS: WHITE BLOOD COUNT 12.5 10^3/ul (4.8-10.8)
[2018-12-08 05:47] LABS: BASOPHILS % 0.1 % (0.0-2.0); EOSINOPHILS # 0.3 10^3/ul (0.0-0.5); EOSINOPHILS % 2.2 % (0.0-7.0); HEMATOCRIT 33.8 % (42.0-52.0); HEMOGLOBIN 10.6 g/dl (14.0-18.0); MEAN CORPUSCULAR HEMOGLOBIN 30.4 pg (29.0-33.0); MEAN CORPUSCULAR HGB CONC 31.4 g/dl (32.0-37.0); MEAN CORPUSCULAR VOLUME 96.8 fl (82.0-101.0); MEAN PLATELET VOLUME 8.5 fl (7.4-10.4); MONOCYTE # 1.2 10^3/ul (0.3-0.9); MONOCYTES % 9.5 % (0.0-11.0); NEUTROPHILS % 79.8 % (39.0-77.0); PLATELET COUNT 185 10^3/UL (140-415); RED BLOOD COUNT 3.49 10^6/ul (4.70-6.10); RED CELL DISTRIBUTION WIDTH 13.2 % (11.5-14.5)
[2018-12-08 06:25] LABS: ANION GAP 18 (5-13); BLOOD UREA NITROGEN 69 mg/dl (7-20); CALCIUM 9.4 mg/dl (8.4-10.2); CARBON DIOXIDE 29 mmol/L (21-31); CHLORIDE 92 mmol/L (97-110); CREATININE 7.53 mg/dl (0.61-1.24); Estimated GFR 7 mL/min (>60); GLUCOSE 103 mg/dl (70-220); POTASSIUM 4.4 mmol/L (3.5-5.1); SODIUM 139 mmol/L (135-144)
[2018-12-08] MEDS: HYDROCODONE/APAP (5/325) TAB PO ×2 (06:27→23:30)
[2018-12-08] MEDS: SEVELAMER CARBONATE 0.8 GM PKT PO ×4 (08:54→20:25)
[2018-12-08] MEDS: DORZOLAMIDE/TIMOLOL 10 ML OPH BOTH EYES ×2 (08:54→20:26)
[2018-12-08] MEDS: NA POLYST SULFON 15 GM/60 ML BTL PO (08:54)
[2018-12-08] MEDS: MULTIVIT/CA CARB/B CMPLX/FA TAB PO (08:58)
[2018-12-08] MEDS: ATENOLOL 100 MG TAB PO (08:59)
[2018-12-08] MEDS: CINACALCET 30 MG TAB PO ×2 (08:59→20:26)
[2018-12-08] MEDS: morphine (ER) 30 MG TAB PO (08:59)
[2018-12-08] MEDS: HEPARIN 5,000 UNIT/1 ML VIAL SC ×2 (09:38→20:34)
[2018-12-08] MEDS: CEFEPIME 1GM/50 ML (PMX) 50 ML IVPB (20:21)
[2018-12-08] MEDS: DOCUSATE SODIUM 100 MG CAP PO (20:26)
[2018-12-09 06:12] LABS: ADD MAN DIFF? NO
[2018-12-09 06:25] LABS: BASOPHILS % 0.2 % (0.0-2.0); EOSINOPHILS # 0.3 10^3/ul (0.0-0.5); EOSINOPHILS % 3.1 % (0.0-7.0); HEMATOCRIT 32.6 % (42.0-52.0); HEMOGLOBIN 10.4 g/dl (14.0-18.0); LYMPHOCYTES # 1.1 10^3/ul (0.8-2.9); LYMPHOCYTES % 10.1 % (15.0-51.0); MEAN CORPUSCULAR HEMOGLOBIN 30.5 pg (29.0-33.0); MEAN CORPUSCULAR HGB CONC 31.9 g/dl (32.0-37.0); MEAN CORPUSCULAR VOLUME 95.6 fl (82.0-101.0); MONOCYTES % 9.3 % (0.0-11.0); NEUTROPHIL # 8.1 10^3/ul (1.6-7.5); NEUTROPHILS % 76.8 % (39.0-77.0); PLATELET COUNT 206 10^3/UL (140-415); RED BLOOD COUNT 3.41 10^6/ul (4.70-6.10); RED CELL DISTRIBUTION WIDTH 12.9 % (11.5-14.5)
[2018-12-09 06:25] LABS: WHITE BLOOD COUNT 10.5 10^3/ul (4.8-10.8)
[2018-12-09] MEDS: morphine 4 MG/ML VIAL IV ×3 (06:29→19:31)
[2018-12-09 06:50] LABS: ANION GAP 18 (5-13); BLOOD UREA NITROGEN 82 mg/dl (7-20); CALCIUM 9.6 mg/dl (8.4-10.2); CARBON DIOXIDE 27 mmol/L (21-31); CHLORIDE 92 mmol/L (97-110); CREATININE 9.05 mg/dl (0.61-1.24); Estimated GFR 6 mL/min (>60); GLUCOSE 99 mg/dl (70-220); MAGNESIUM 2.6 mg/dl (1.7-2.5); POTASSIUM 4.2 mmol/L (3.5-5.1); SODIUM 137 mmol/L (135-144)
[2018-12-09] MEDS: MULTIVIT/CA CARB/B CMPLX/FA TAB PO (08:46)
[2018-12-09] MEDS: CINACALCET 30 MG TAB PO ×2 (08:46→20:16)
[2018-12-09] MEDS: ATENOLOL 100 MG TAB PO (08:47)
[2018-12-09] MEDS: SEVELAMER CARBONATE 0.8 GM PKT PO ×4 (08:47→20:16)
[2018-12-09] MEDS: DORZOLAMIDE/TIMOLOL 10 ML OPH BOTH EYES ×2 (08:48→20:16)
[2018-12-09] MEDS: morphine (ER) 30 MG TAB PO (08:48)
[2018-12-09] MEDS: HEPARIN 5,000 UNIT/1 ML VIAL SC ×2 (09:37→20:24)
[2018-12-09] MEDS ORDERED: NIFEdipine (XL) 30 MG TAB PO (12:00)
[2018-12-09] MEDS: NIFEdipine (XL) 30 MG TAB PO ×2 (12:26→20:16)
[2018-12-09] MEDS: hydrALAzine 20 MG INJ IV (14:17)
[2018-12-09] MEDS: CALCIUM CARBONATE 750 MG CHEW TAB PO (16:04)
[2018-12-09] MEDS: CEFEPIME 1GM/50 ML (PMX) 50 ML IVPB (20:15)
[2018-12-09] MEDS: DOCUSATE SODIUM 100 MG CAP PO (20:15)
[2018-12-09] MEDS: LIDOCAINE 1% (MDV) 20 ML INJ SC (20:32)
[2018-12-09] MEDS: ACETAMINOPHEN 325 MG TAB PO (23:20)
[2018-12-09] MEDS ORDERED: VANCOMYCIN IV PER PHARMACY XX (23:30)
[2018-12-10] MEDS: VANCOMYCIN HCL 1.75 GM in SOD CHLORIDE 0.9% 500 ML IVPB (02:35)
[2018-12-10] MEDS: ACETAMINOPHEN 325 MG TAB PO ×3 (05:14→21:45)
[2018-12-10 05:28] LABS: ADD MAN DIFF? NO
[2018-12-10 05:38] LABS: WHITE BLOOD COUNT 8.8 10^3/ul (4.8-10.8)
[2018-12-10 05:38] LABS: BASOPHILS % 0.2 % (0.0-2.0); EOSINOPHILS # 0.3 10^3/ul (0.0-0.5); HEMATOCRIT 32.8 % (42.0-52.0); HEMOGLOBIN 10.3 g/dl (14.0-18.0); LYMPHOCYTES # 0.9 10^3/ul (0.8-2.9); LYMPHOCYTES % 10.7 % (15.0-51.0); MEAN CORPUSCULAR HEMOGLOBIN 30.1 pg (29.0-33.0); MEAN CORPUSCULAR HGB CONC 31.4 g/dl (32.0-37.0); MEAN CORPUSCULAR VOLUME 95.9 fl (82.0-101.0); MEAN PLATELET VOLUME 8.6 fl (7.4-10.4); MONOCYTE # 0.9 10^3/ul (0.3-0.9); MONOCYTES % 10.3 % (0.0-11.0); NEUTROPHIL # 6.6 10^3/ul (1.6-7.5); NEUTROPHILS % 75.5 % (39.0-77.0); PLATELET COUNT 205 10^3/UL (140-415); RED BLOOD COUNT 3.42 10^6/ul (4.70-6.10); RED CELL DISTRIBUTION WIDTH 12.9 % (11.5-14.5)
[2018-12-10 06:07] LABS: ANION GAP 13 (5-13); BLOOD UREA NITROGEN 39 mg/dl (7-20); CALCIUM 9.3 mg/dl (8.4-10.2); CARBON DIOXIDE 30 mmol/L (21-31); CHLORIDE 98 mmol/L (97-110); CREATININE 5.41 mg/dl (0.61-1.24); Estimated GFR 11 mL/min (>60); GLUCOSE 191 mg/dl (70-220); POTASSIUM 3.8 mmol/L (3.5-5.1); SODIUM 141 mmol/L (135-144)
[2018-12-10] MEDS: DORZOLAMIDE/TIMOLOL 10 ML OPH BOTH EYES ×2 (08:37→21:00)
[2018-12-10] MEDS: MUPIROCIN 2% 22 GM OINT TOP ×2 (08:39→21:00)
[2018-12-10] MEDS: MULTIVIT/CA CARB/B CMPLX/FA TAB PO (08:39)
[2018-12-10] MEDS: NA POLYST SULFON 15 GM/60 ML BTL PO (08:39)
[2018-12-10] MEDS: RIFAMPIN 300 MG CAP PO (08:39)
[2018-12-10] MEDS: morphine (ER) 30 MG TAB PO (08:40)
[2018-12-10] MEDS: SEVELAMER CARBONATE 0.8 GM PKT PO ×4 (08:40→21:00)
[2018-12-10] MEDS: NIFEdipine (XL) 30 MG TAB PO ×2 (08:40→21:46)
[2018-12-10] MEDS: ATENOLOL 100 MG TAB PO (08:40)
[2018-12-10] MEDS: CINACALCET 30 MG TAB PO ×2 (08:46→21:46)
[2018-12-10] MEDS: HEPARIN 5,000 UNIT/1 ML VIAL SC ×2 (08:46→22:09)
[2018-12-10] MEDS: hydrALAzine 20 MG INJ IV (13:28)
[2018-12-10] MEDS: DOCUSATE SODIUM 100 MG CAP PO (21:45)
[2018-12-10] MEDS: CEFEPIME 1GM/50 ML (PMX) 50 ML IVPB (23:00)
[2018-12-11] MEDS: ACETAMINOPHEN 325 MG TAB PO ×2 (05:15→20:29)
[2018-12-11] MEDS: ONDANSETRON 4 MG INJ IV (06:38)
[2018-12-11] MEDS: SEVELAMER CARBONATE 0.8 GM PKT PO ×4 (08:00→20:39)
[2018-12-11] MEDS: LIDOCAINE 1% (MPF) 5 ML VIAL INFIL (08:39)
[2018-12-11] MEDS: MUPIROCIN 2% 22 GM OINT TOP ×2 (09:00→20:29)
[2018-12-11] MEDS: morphine (ER) 30 MG TAB PO (09:00)
[2018-12-11] MEDS: HEPARIN 5,000 UNIT/1 ML VIAL SC ×2 (09:00→20:48)
[2018-12-11] MEDS: ATENOLOL 100 MG TAB PO (09:00)
[2018-12-11] MEDS: DORZOLAMIDE/TIMOLOL 10 ML OPH BOTH EYES ×2 (09:00→20:29)
[2018-12-11] MEDS: CINACALCET 30 MG TAB PO ×2 (09:00→20:30)
[2018-12-11] MEDS: MULTIVIT/CA CARB/B CMPLX/FA TAB PO (09:00)
[2018-12-11] MEDS: RIFAMPIN 300 MG CAP PO (09:00)
[2018-12-11] MEDS: NIFEdipine (XL) 30 MG TAB PO ×2 (09:00→20:30)
[2018-12-11] MEDS: DOCUSATE SODIUM 100 MG CAP PO (20:30)
[2018-12-11] MEDS: CEFEPIME 1GM/50 ML (PMX) 50 ML IVPB (20:31)
[2018-12-12] MEDS: ACETAMINOPHEN 325 MG TAB PO ×2 (04:21→20:07)
[2018-12-12] MEDS: morphine 4 MG/ML VIAL IV ×3 (04:42→13:06)
[2018-12-12] MEDS: ONDANSETRON 4 MG INJ IV ×4 (05:34→20:15)
[2018-12-12] MEDS: MULTIVIT/CA CARB/B CMPLX/FA TAB PO (08:52)
[2018-12-12] MEDS: CINACALCET 30 MG TAB PO ×2 (08:52→20:08)
[2018-12-12] MEDS: RIFAMPIN 300 MG CAP PO (08:53)
[2018-12-12] MEDS: NIFEdipine (XL) 30 MG TAB PO ×2 (08:53→20:09)
[2018-12-12] MEDS: ATENOLOL 100 MG TAB PO (08:54)
[2018-12-12] MEDS: morphine (ER) 30 MG TAB PO (08:55)
[2018-12-12] MEDS: NA POLYST SULFON 15 GM/60 ML BTL PO (09:00)
[2018-12-12] MEDS: MUPIROCIN 2% 22 GM OINT TOP ×3 (09:03→21:00)
[2018-12-12] MEDS: DORZOLAMIDE/TIMOLOL 10 ML OPH BOTH EYES ×2 (09:03→20:09)
[2018-12-12] MEDS: SEVELAMER CARBONATE 0.8 GM PKT PO ×4 (09:06→20:08)
[2018-12-12] MEDS: HEPARIN 5,000 UNIT/1 ML VIAL SC ×2 (09:14→20:21)
[2018-12-12] MEDS: VANCOMYCIN 1 GM 250 ML IVPB (10:09)
[2018-12-12] MEDS: HYDROCODONE/APAP (5/325) TAB PO (10:22)
[2018-12-12] MEDS: LEVOFLOXACIN 250 MG TAB PO (13:36)
[2018-12-12] MEDS: DOCUSATE SODIUM 100 MG CAP PO (20:08)
[2018-12-13] MEDS: morphine 4 MG/ML VIAL IV ×4 (03:29→21:09)
[2018-12-13] MEDS: HYDROCODONE/APAP (5/325) TAB PO ×2 (04:19→09:45)
[2018-12-13] MEDS: hydrALAzine 20 MG INJ IV (04:19)
[2018-12-13] MEDS: MUPIROCIN 2% 22 GM OINT TOP ×2 (09:00→21:02)
[2018-12-13] MEDS: NIFEdipine (XL) 30 MG TAB PO ×2 (09:00→20:59)
[2018-12-13] MEDS: ATENOLOL 100 MG TAB PO (09:00)
[2018-12-13] MEDS: SEVELAMER CARBONATE 0.8 GM PKT PO ×4 (09:30→21:00)
[2018-12-13] MEDS: RIFAMPIN 300 MG CAP PO (09:31)
[2018-12-13] MEDS: MULTIVIT/CA CARB/B CMPLX/FA TAB PO (09:31)
[2018-12-13] MEDS: CINACALCET 30 MG TAB PO ×2 (09:31→21:00)
[2018-12-13] MEDS: HEPARIN 5,000 UNIT/1 ML VIAL SC ×2 (09:34→21:07)
[2018-12-13] MEDS: DORZOLAMIDE/TIMOLOL 10 ML OPH BOTH EYES ×2 (09:47→21:02)
[2018-12-13] MEDS: morphine (ER) 30 MG TAB PO (12:11)
[2018-12-13] MEDS: DOCUSATE SODIUM 100 MG CAP PO (21:00)
[2018-12-14] MEDS: morphine 4 MG/ML VIAL IV ×4 (01:08→21:04)
[2018-12-14] MEDS: hydrALAzine 20 MG INJ IV (01:15)
[2018-12-14] MEDS: SEVELAMER CARBONATE 0.8 GM PKT PO ×5 (08:00→21:00)
[2018-12-14] MEDS: morphine (ER) 30 MG TAB PO ×2 (09:00→09:48)
[2018-12-14] MEDS: ATENOLOL 100 MG TAB PO ×2 (09:00→09:49)
[2018-12-14] MEDS: DORZOLAMIDE/TIMOLOL 10 ML OPH BOTH EYES ×3 (09:00→21:00)
[2018-12-14] MEDS: CINACALCET 30 MG TAB PO ×3 (09:00→21:00)
[2018-12-14] MEDS: NA POLYST SULFON 15 GM/60 ML BTL PO ×2 (09:00→09:48)
[2018-12-14] MEDS: MULTIVIT/CA CARB/B CMPLX/FA TAB PO ×2 (09:00→09:47)
[2018-12-14] MEDS: HEPARIN 5,000 UNIT/1 ML VIAL SC ×2 (09:00→21:00)
[2018-12-14] MEDS: RIFAMPIN 300 MG CAP PO ×2 (09:00→09:47)
[2018-12-14] MEDS: NIFEdipine (XL) 30 MG TAB PO ×3 (09:00→21:00)
[2018-12-14] MEDS: MUPIROCIN 2% 22 GM OINT TOP ×3 (09:00→21:00)
[2018-12-14] MEDS: LEVOFLOXACIN 250 MG TAB PO (12:11)
[2018-12-14] MEDS: HYDROCODONE/APAP (5/325) TAB PO (19:10)
[2018-12-14] MEDS: DOCUSATE SODIUM 100 MG CAP PO (21:00)
[2018-12-15] MEDS: hydrALAzine 20 MG INJ IV (04:02)
[2018-12-15 06:08] LABS: ADD MAN DIFF? NO
[2018-12-15 06:35] LABS: BASOPHILS % 0.4 % (0.0-2.0); EOSINOPHILS # 0.4 10^3/ul (0.0-0.5); EOSINOPHILS % 3.8 % (0.0-7.0); HEMATOCRIT 35.3 % (42.0-52.0); HEMOGLOBIN 11.1 g/dl (14.0-18.0); LYMPHOCYTES # 1.6 10^3/ul (0.8-2.9); LYMPHOCYTES % 17.4 % (15.0-51.0); MEAN CORPUSCULAR HEMOGLOBIN 31.1 pg (29.0-33.0); MEAN CORPUSCULAR HGB CONC 31.4 g/dl (32.0-37.0); MEAN CORPUSCULAR VOLUME 98.9 fl (82.0-101.0); MEAN PLATELET VOLUME 8.5 fl (7.4-10.4); MONOCYTE # 1.1 10^3/ul (0.3-0.9); MONOCYTES % 11.8 % (0.0-11.0); NEUTROPHIL # 6.1 10^3/ul (1.6-7.5); NEUTROPHILS % 65.4 % (39.0-77.0); PLATELET COUNT 266 10^3/UL (140-415); RED BLOOD COUNT 3.57 10^6/ul (4.70-6.10); RED CELL DISTRIBUTION WIDTH 12.4 % (11.5-14.5)
[2018-12-15 06:35] LABS: WHITE BLOOD COUNT 9.4 10^3/ul (4.8-10.8)
[2018-12-15 06:46] LABS: ANION GAP 15 (5-13); BLOOD UREA NITROGEN 70 mg/dl (7-20); CALCIUM 10.3 mg/dl (8.4-10.2); CARBON DIOXIDE 30 mmol/L (21-31); CHLORIDE 96 mmol/L (97-110); CREATININE 8.13 mg/dl (0.61-1.24); Estimated GFR 7 mL/min (>60); GLUCOSE 137 mg/dl (70-220); SODIUM 141 mmol/L (135-144)
[2018-12-15 07:03] LABS: VANCOMYCIN,RANDOM 19.1 ug/ml
[2018-12-15] MEDS: SEVELAMER CARBONATE 0.8 GM PKT PO ×4 (08:00→21:00)
[2018-12-15] MEDS: MULTIVIT/CA CARB/B CMPLX/FA TAB PO (08:24)
[2018-12-15] MEDS: CINACALCET 30 MG TAB PO ×2 (08:24→21:00)
[2018-12-15] MEDS: RIFAMPIN 300 MG CAP PO (08:25)
[2018-12-15] MEDS: MUPIROCIN 2% 22 GM OINT TOP ×2 (08:25→21:27)
[2018-12-15] MEDS: morphine (ER) 30 MG TAB PO (08:25)
[2018-12-15] MEDS: ATENOLOL 100 MG TAB PO (08:25)
[2018-12-15] MEDS: NIFEdipine (XL) 30 MG TAB PO ×2 (08:25→21:00)
[2018-12-15] MEDS: DORZOLAMIDE/TIMOLOL 10 ML OPH BOTH EYES ×2 (08:26→21:25)
[2018-12-15] MEDS: NA POLYST SULFON 15 GM/60 ML BTL PO (08:28)
[2018-12-15] MEDS: HEPARIN 5,000 UNIT/1 ML VIAL SC ×2 (08:28→21:00)
[2018-12-15] MEDS: CALCIUM CARBONATE 500 MG CHEW TAB PO (17:05)
[2018-12-15] MEDS: DOCUSATE SODIUM 100 MG CAP PO (21:00)
[2018-12-15] MEDS: morphine 4 MG/ML VIAL IV (22:24)
[2018-12-16] MEDS: HYDROCODONE/APAP (5/325) TAB PO ×2 (01:11→18:25)
[2018-12-16] MEDS: hydrALAzine 20 MG INJ IV ×2 (03:15→21:52)
[2018-12-16] MEDS: morphine 4 MG/ML VIAL IV ×3 (03:15→23:55)
[2018-12-16] MEDS: SEVELAMER CARBONATE 0.8 GM PKT PO ×4 (08:00→21:00)
[2018-12-16] MEDS: CINACALCET 30 MG TAB PO ×2 (09:00→21:00)
[2018-12-16] MEDS: DORZOLAMIDE/TIMOLOL 10 ML OPH BOTH EYES ×2 (09:00→21:00)
[2018-12-16] MEDS: MULTIVIT/CA CARB/B CMPLX/FA TAB PO (09:00)
[2018-12-16] MEDS: HEPARIN 5,000 UNIT/1 ML VIAL SC ×2 (09:00→21:00)
[2018-12-16] MEDS: MUPIROCIN 2% 22 GM OINT TOP ×2 (09:00→21:00)
[2018-12-16] MEDS: morphine (ER) 30 MG TAB PO (09:00)
[2018-12-16] MEDS: NIFEdipine (XL) 30 MG TAB PO ×3 (09:00→21:00)
[2018-12-16] MEDS: RIFAMPIN 300 MG CAP PO (09:00)
[2018-12-16] MEDS: ATENOLOL 100 MG TAB PO (09:00)
[2018-12-16] MEDS ORDERED: VANCOMYCIN 1 GM 250 ML IVPB (10:00)
[2018-12-16 10:55] LABS: ADD MAN DIFF? NO
[2018-12-16 10:58] LABS: WHITE BLOOD COUNT 7.1 10^3/ul (4.8-10.8)
[2018-12-16 10:58] LABS: BASOPHILS % 0.4 % (0.0-2.0); EOSINOPHILS # 0.3 10^3/ul (0.0-0.5); EOSINOPHILS % 4.8 % (0.0-7.0); HEMATOCRIT 33.1 % (42.0-52.0); HEMOGLOBIN 10.5 g/dl (14.0-18.0); LYMPHOCYTES # 1.5 10^3/ul (0.8-2.9); LYMPHOCYTES % 20.6 % (15.0-51.0); MEAN CORPUSCULAR HEMOGLOBIN 30.6 pg (29.0-33.0); MEAN CORPUSCULAR HGB CONC 31.7 g/dl (32.0-37.0); MEAN CORPUSCULAR VOLUME 96.5 fl (82.0-101.0); MEAN PLATELET VOLUME 8.5 fl (7.4-10.4); MONOCYTE # 0.6 10^3/ul (0.3-0.9); MONOCYTES % 7.9 % (0.0-11.0); NEUTROPHIL # 4.7 10^3/ul (1.6-7.5); NEUTROPHILS % 65.3 % (39.0-77.0); PLATELET COUNT 259 10^3/UL (140-415); RED BLOOD COUNT 3.43 10^6/ul (4.70-6.10); RED CELL DISTRIBUTION WIDTH 12.3 % (11.5-14.5)
[2018-12-16 11:17] LABS: ANION GAP 17 (5-13); BLOOD UREA NITROGEN 66 mg/dl (7-20); CALCIUM 9.8 mg/dl (8.4-10.2); CARBON DIOXIDE 29 mmol/L (21-31); CHLORIDE 94 mmol/L (97-110); CREATININE 7.42 mg/dl (0.61-1.24); Estimated GFR 8 mL/min (>60); GLUCOSE 124 mg/dl (70-220); POTASSIUM 4.7 mmol/L (3.5-5.1); SODIUM 140 mmol/L (135-144)
[2018-12-16] MEDS: LEVOFLOXACIN 250 MG TAB PO (14:36)
[2018-12-16] MEDS: VANCOMYCIN 1 GM 250 ML IVPB (14:37)
[2018-12-16] MEDS: DOCUSATE SODIUM 100 MG CAP PO (21:00)
[2018-12-17] MEDS: hydrALAzine 20 MG INJ IV ×3 (01:50→17:35)
[2018-12-17] MEDS: HYDROCODONE/APAP (5/325) TAB PO ×2 (02:20→22:48)
[2018-12-17] MEDS: morphine 4 MG/ML VIAL IV ×2 (04:17→20:19)
[2018-12-17] MEDS: SEVELAMER CARBONATE 0.8 GM PKT PO ×4 (08:00→20:26)
[2018-12-17] MEDS: NIFEdipine (XL) 30 MG TAB PO ×2 (08:08→20:18)
[2018-12-17] MEDS: DORZOLAMIDE/TIMOLOL 10 ML OPH BOTH EYES ×2 (09:00→20:26)
[2018-12-17] MEDS: morphine (ER) 30 MG TAB PO (09:00)
[2018-12-17] MEDS: MUPIROCIN 2% 22 GM OINT TOP ×2 (09:00→20:26)
[2018-12-17] MEDS: HEPARIN 5,000 UNIT/1 ML VIAL SC ×2 (09:00→20:26)
[2018-12-17] MEDS: RIFAMPIN 300 MG CAP PO (09:00)
[2018-12-17] MEDS: NA POLYST SULFON 15 GM/60 ML BTL PO (09:00)
[2018-12-17] MEDS: MULTIVIT/CA CARB/B CMPLX/FA TAB PO (09:00)
[2018-12-17] MEDS: CINACALCET 30 MG TAB PO ×2 (09:00→20:18)
[2018-12-17] MEDS: ATENOLOL 100 MG TAB PO ×2 (10:05→10:31)
[2018-12-17] MEDS: VANCOMYCIN 1 GM 250 ML IVPB (13:59)
[2018-12-17] MEDS: DOCUSATE SODIUM 100 MG CAP PO (20:26)
[2018-12-18] MEDS: morphine 4 MG/ML VIAL IV ×2 (00:22→04:58)
[2018-12-18] MEDS: CALCIUM CARBONATE 500 MG CHEW TAB PO (02:05)
[2018-12-18] MEDS: hydrALAzine 20 MG INJ IV ×2 (02:18→10:59)
[2018-12-18] MEDS: MULTIVIT/CA CARB/B CMPLX/FA TAB PO (08:50)
[2018-12-18] MEDS: RIFAMPIN 300 MG CAP PO (08:50)
[2018-12-18] MEDS: CINACALCET 30 MG TAB PO ×2 (08:51→20:54)
[2018-12-18] MEDS: SEVELAMER CARBONATE 0.8 GM PKT PO ×4 (08:52→21:00)
[2018-12-18] MEDS: MUPIROCIN 2% 22 GM OINT TOP ×3 (08:53→21:00)
[2018-12-18] MEDS: HEPARIN 5,000 UNIT/1 ML VIAL SC ×2 (08:56→21:00)
[2018-12-18] MEDS: DORZOLAMIDE/TIMOLOL 10 ML OPH BOTH EYES ×2 (09:00→21:00)
[2018-12-18] MEDS: morphine (ER) 30 MG TAB PO (09:03)
[2018-12-18] MEDS: NIFEdipine (XL) 30 MG TAB PO ×2 (09:03→21:03)
[2018-12-18] MEDS: LEVOFLOXACIN 250 MG TAB PO (13:34)
[2018-12-18] MEDS: ACETAMINOPHEN 325 MG TAB PO (13:34)
[2018-12-18] MEDS: LIDOCAINE 1% (MDV) 20 ML INJ INJ (16:11)
[2018-12-18] MEDS: ALBUMIN HUMAN 25% 100 ML IV (18:04)
[2018-12-18] MEDS: VANCOMYCIN 1 GM (PMX) 250 ML IVPB (20:54)
[2018-12-18] MEDS: DOCUSATE SODIUM 100 MG CAP PO (21:00)
[2018-12-19] MEDS: HYDROCODONE/APAP (5/325) TAB PO (02:25)
[2018-12-19] MEDS: hydrALAzine 20 MG INJ IV (02:26)
[2018-12-19] MEDS: morphine 4 MG/ML VIAL IV (02:31)
[2018-12-19] MEDS: ACETAMINOPHEN 325 MG TAB PO (06:09)
[2018-12-19] MEDS: NIFEdipine (XL) 30 MG TAB PO (08:47)
[2018-12-19] MEDS: MULTIVIT/CA CARB/B CMPLX/FA TAB PO (08:47)
[2018-12-19] MEDS: HEPARIN 5,000 UNIT/1 ML VIAL SC (08:47)
[2018-12-19] MEDS: ATENOLOL 100 MG TAB PO (08:48)
[2018-12-19] MEDS: CINACALCET 30 MG TAB PO (08:48)
[2018-12-19] MEDS: RIFAMPIN 300 MG CAP PO (08:48)
[2018-12-19] MEDS: morphine (ER) 30 MG TAB PO (08:48)
[2018-12-19] MEDS: NA POLYST SULFON 15 GM/60 ML BTL PO (08:49)
[2018-12-19] MEDS: MUPIROCIN 2% 22 GM OINT TOP (08:49)
[2018-12-19] MEDS: DORZOLAMIDE/TIMOLOL 10 ML OPH BOTH EYES (08:49)
[2018-12-19] MEDS: SEVELAMER CARBONATE 0.8 GM PKT PO (08:50)
== END 2018-12-19 11:20 | DRG 640 ==
LOC: 6WM 23:35 → E/R 21:39 → 5EC 12-15 22:47
PROC: 5A1D70Z Performance of Urinary Filtration, Intermittent, Less than 6 Hours Per Day (ICD-10-PCS; principal; 2018-12-07)
DX: E87.5 Hyperkalemia (principal); N18.6 End stage renal disease; J18.9 Pneumonia, unspecified organism; I12.0 Hypertensive chronic kidney disease with stage 5 chronic kidney disease or end stage renal disease; E11.22 Type 2 diabetes mellitus with diabetic chronic kidney disease; E87.70 Fluid overload, unspecified; R10.9 Unspecified abdominal pain; J44.9 Chronic obstructive pulmonary disease, unspecified; G89.29 Other chronic pain; M54.9 Dorsalgia, unspecified; Z22.322 Carrier or suspected carrier of Methicillin resistant Staphylococcus aureus; Z99.2 Dependence on renal dialysis; Z87.891 Personal history of nicotine dependence
CPT/HCPCS: 36415; 71045; 72148; 74176; 80048; 80053; 80202; 83690; 83735; 84560; 85025; 87081; 87340; 90935; 93005; 96374; 96375; 97110; 97162; 97530; 99291-25

== ENCOUNTER 2019-01-02 22:39 | Inpatient (IN) | payer MEDICARE, OTHER ==
[2019-01-02] MEDS: ONDANSETRON 4 MG INJ IV (22:54)
[2019-01-02] MEDS: morphine 4 MG/ML VIAL IV (22:55)
[2019-01-02 23:42] LABS: ADD MAN DIFF? NO
[2019-01-02 23:45] LABS: BASOPHILS % 0.3 % (0.0-2.0); EOSINOPHILS # 0.2 10^3/ul (0.0-0.5); EOSINOPHILS % 2.8 % (0.0-7.0); HEMATOCRIT 29.2 % (42.0-52.0); HEMOGLOBIN 9.2 g/dl (14.0-18.0); LYMPHOCYTES # 1.2 10^3/ul (0.8-2.9); LYMPHOCYTES % 15.8 % (15.0-51.0); MEAN CORPUSCULAR HEMOGLOBIN 30.7 pg (29.0-33.0); MEAN CORPUSCULAR HGB CONC 31.5 g/dl (32.0-37.0); MEAN CORPUSCULAR VOLUME 97.3 fl (82.0-101.0); MEAN PLATELET VOLUME 8.7 fl (7.4-10.4); MONOCYTE # 0.8 10^3/ul (0.3-0.9); MONOCYTES % 10.1 % (0.0-11.0); NEUTROPHIL # 5.2 10^3/ul (1.6-7.5); NEUTROPHILS % 70.6 % (39.0-77.0); PLATELET COUNT 213 10^3/UL (140-415); RED CELL DISTRIBUTION WIDTH 13.4 % (11.5-14.5)
[2019-01-02 23:45] LABS: WHITE BLOOD COUNT 7.4 10^3/ul (4.8-10.8)
[2019-01-03] LABS: ANION GAP 15 (5-13); BLOOD UREA NITROGEN 58 mg/dl (7-20); CALCIUM 9.9 mg/dl (8.4-10.2); CARBON DIOXIDE 27 mmol/L (21-31); CHLORIDE 94 mmol/L (97-110); CREATININE 6.54 mg/dl (0.61-1.24); Estimated GFR 9 mL/min (>60); GLUCOSE 146 mg/dl (70-220); SODIUM 136 mmol/L (135-144)
[2019-01-03 00:04] LABS: INR 0.98; PROTIME 13.1 Sec (11.9-14.9)
[2019-01-03] MEDS: DIPHTH/TET/ACEL PERTUSS (ADULT) 0.5 ML VIAL IM* (00:10)
[2019-01-03] MEDS: CEFAZOLIN 1 GM/50 ML (PMX) 50 ML IVPB (00:10)
[2019-01-03] MEDS: HYDROmorphONE 0.5 MG/0.5 ML SYG IV ×4 (00:11→02:15)
[2019-01-03] MEDS: PIPER-TAZO 2.25 GM (PMX) 50 ML IVPB ×4 (02:18→21:45)
[2019-01-03] MEDS: morphine 2 MG INJ IV ×5 (04:40→20:35)
[2019-01-03] MEDS: HYDROCODONE/APAP (10/325) TAB PO ×2 (06:28→14:07)
[2019-01-03] MEDS: SEVELAMER CARBONATE 0.8 GM PKT PO ×4 (07:55→20:42)
[2019-01-03] MEDS: DOCUSATE SODIUM 100 MG CAP PO (08:30)
[2019-01-03] MEDS: LACTULOSE 30ML CUP PO ×2 (08:30→20:38)
[2019-01-03] MEDS: DORZOLAMIDE/TIMOLOL/PF 0.2 ML DROPERETTE BOTH EYES ×2 (08:38→20:38)
[2019-01-03] MEDS: LINAGLIPTIN 5 MG TABLET PO (08:39)
[2019-01-03] MEDS: ATENOLOL 100 MG TAB PO (08:39)
[2019-01-03] MEDS: NIFEdipine (XL) 60 MG TAB PO ×2 (08:39→21:00)
[2019-01-03] MEDS: HEPARIN 5,000 UNIT/0.5 ML VIAL SC (08:40)
[2019-01-03] MEDS: ACCU-CHEK XX ×4 (08:45→20:38)
[2019-01-03] MEDS ORDERED: DORZOLAMIDE/TIMOLOL 10 ML OPH BOTH EYES (09:00)
[2019-01-03] MEDS ORDERED: GLUCOSE GEL 15 GRAM TUBE PO ×2 (11:00)
[2019-01-03] MEDS ORDERED: GLUCOSE GEL 15 GRAM TUBE BUCCAL (11:00)
[2019-01-03] MEDS ORDERED: GLUCAGON 1 MG INJ IM (11:00)
[2019-01-03] MEDS ORDERED: DEXTROSE 50% 50 ML SYRINGE IV ×2 (11:00)
[2019-01-03] MEDS: INSULIN ASPART [NOVOLOG] 3 ML PEN SC ×3 (11:50→20:39)
[2019-01-03 12:31] LABS: ADD MAN DIFF? NO
[2019-01-03 12:39] LABS: BASOPHILS % 0.4 % (0.0-2.0); EOSINOPHILS # 0.3 10^3/ul (0.0-0.5); EOSINOPHILS % 3.4 % (0.0-7.0); HEMATOCRIT 27.2 % (42.0-52.0); HEMOGLOBIN 8.6 g/dl (14.0-18.0); LYMPHOCYTES # 1.4 10^3/ul (0.8-2.9); LYMPHOCYTES % 18.7 % (15.0-51.0); MEAN CORPUSCULAR HEMOGLOBIN 30.5 pg (29.0-33.0); MEAN CORPUSCULAR HGB CONC 31.6 g/dl (32.0-37.0); MEAN CORPUSCULAR VOLUME 96.5 fl (82.0-101.0); MEAN PLATELET VOLUME 8.5 fl (7.4-10.4); MONOCYTE # 0.9 10^3/ul (0.3-0.9); MONOCYTES % 12.2 % (0.0-11.0); NEUTROPHIL # 4.9 10^3/ul (1.6-7.5); NEUTROPHILS % 64.9 % (39.0-77.0); PLATELET COUNT 192 10^3/UL (140-415); RED BLOOD COUNT 2.82 10^6/ul (4.70-6.10); RED CELL DISTRIBUTION WIDTH 13.2 % (11.5-14.5)
[2019-01-03 12:39] LABS: WHITE BLOOD COUNT 7.6 10^3/ul (4.8-10.8)
[2019-01-03 12:53] LABS: ALANINE AMINOTRANSFERASE 7 IU/L (13-69); ALBUMIN 3.8 g/dl (3.3-4.9); ALBUMIN/GLOBULIN RATIO 0.97; ALKALINE PHOSPHATASE 186 IU/L (42-121); ANION GAP 12 (5-13); ASPARTATE AMINO TRANSFERASE 16 IU/L (15-46); BILIRUBIN,INDIRECT 0.1 mg/dl (0-1.1); BILIRUBIN,TOTAL 0.1 mg/dl (0.2-1.3); BLOOD UREA NITROGEN 68 mg/dl (7-20); CALCIUM 9.7 mg/dl (8.4-10.2); CARBON DIOXIDE 25 mmol/L (21-31); CHLORIDE 99 mmol/L (97-110); CREATININE 7.37 mg/dl (0.61-1.24); Estimated GFR 8 mL/min (>60); GLUCOSE 91 mg/dl (70-220); SODIUM 136 mmol/L (135-144); TOTAL PROTEIN 7.7 g/dl (6.1-8.1)
[2019-01-03] MEDS ORDERED: FENTAnyl 50 MCG/ML VIAL (13:17)
[2019-01-03] MEDS: FENTAnyl 50 MCG/ML VIAL IV (13:19)
[2019-01-03] MEDS ORDERED: ONDANSETRON 4 MG INJ IV (13:30)
[2019-01-03] MEDS ORDERED: ALBUTEROL 0.083% (NEB) 2.5 MG/3 ML AMP HHN (13:30)
[2019-01-03] MEDS ORDERED: METOCLOPRAMIDE 10 MG INJ IV (13:30)
[2019-01-03] MEDS ORDERED: DIPHENHYDRAMINE 50 MG INJ IV (13:30)
[2019-01-03] MEDS ORDERED: SODIUM CHLORIDE 0.9% 1L BAG IV (14:30)
[2019-01-03] MEDS: LIDOCAINE 1% (MDV) 20 ML INJ SC (18:22)
[2019-01-03] MEDS: ACETAMINOPHEN 325 MG TAB PO (23:03)
[2019-01-04] MEDS: morphine 2 MG INJ IV (00:29)
[2019-01-04] MEDS: ACCUCHECK AT 2AM (Patients on SS coverage) XX (02:00)
[2019-01-04] MEDS: HYDROmorphONE 0.5 MG/0.5 ML SYG IV ×2 (04:04→20:38)
[2019-01-04] MEDS: PIPER-TAZO 2.25 GM (PMX) 50 ML IVPB ×3 (05:21→21:58)
[2019-01-04 06:47] LABS: ADD MAN DIFF? NO
[2019-01-04 06:51] LABS: WHITE BLOOD COUNT 7.6 10^3/ul (4.8-10.8)
[2019-01-04 06:51] LABS: BASOPHILS % 0.3 % (0.0-2.0); EOSINOPHILS # 0.2 10^3/ul (0.0-0.5); EOSINOPHILS % 2.4 % (0.0-7.0); HEMATOCRIT 30.8 % (42.0-52.0); HEMOGLOBIN 9.6 g/dl (14.0-18.0); LYMPHOCYTES # 0.9 10^3/ul (0.8-2.9); LYMPHOCYTES % 12.3 % (15.0-51.0); MEAN CORPUSCULAR HEMOGLOBIN 30.3 pg (29.0-33.0); MEAN CORPUSCULAR HGB CONC 31.2 g/dl (32.0-37.0); MEAN CORPUSCULAR VOLUME 97.2 fl (82.0-101.0); MEAN PLATELET VOLUME 8.7 fl (7.4-10.4); MONOCYTE # 0.7 10^3/ul (0.3-0.9); NEUTROPHIL # 5.8 10^3/ul (1.6-7.5); NEUTROPHILS % 75.6 % (39.0-77.0); PLATELET COUNT 179 10^3/UL (140-415); RED BLOOD COUNT 3.17 10^6/ul (4.70-6.10); RED CELL DISTRIBUTION WIDTH 13.4 % (11.5-14.5)
[2019-01-04] MEDS ORDERED: MIDAZOLAM 1 MG/ML 2 ML INJ (06:59)
[2019-01-04] MEDS ORDERED: FENTAnyl 50 MCG/ML VIAL ×2 (06:59→10:59)
[2019-01-04] MEDS ORDERED: ROPIVACAINE 0.5 % 30 ML VIAL (06:59)
[2019-01-04] MEDS ORDERED: ETOMIDATE 20 MG INJ (06:59)
[2019-01-04] MEDS ORDERED: METOCLOPRAMIDE 10 MG INJ (06:59)
[2019-01-04] MEDS ORDERED: ONDANSETRON 4 MG INJ (06:59)
[2019-01-04] MEDS ORDERED: CEFAZOLIN 1 GM INJ (07:00)
[2019-01-04 07:25] LABS: ANION GAP 14 (5-13); BLOOD UREA NITROGEN 36 mg/dl (7-20); CALCIUM 9.7 mg/dl (8.4-10.2); CARBON DIOXIDE 26 mmol/L (21-31); CHLORIDE 101 mmol/L (97-110); CREATININE 4.91 mg/dl (0.61-1.24); Estimated GFR 12 mL/min (>60); GLUCOSE 100 mg/dl (70-220); POTASSIUM 5.1 mmol/L (3.5-5.1); SODIUM 141 mmol/L (135-144)
[2019-01-04] MEDS: ACCU-CHEK XX ×2 (07:25→13:16)
[2019-01-04] MEDS ORDERED: morphine SULFATE/PF (10 MG/10 ML) INJ (07:46)
[2019-01-04] MEDS: SEVELAMER CARBONATE 0.8 GM PKT PO ×4 (07:55→20:39)
[2019-01-04] MEDS: INSULIN ASPART [NOVOLOG] 3 ML PEN SC ×2 (07:55→13:16)
[2019-01-04] MEDS: ATENOLOL 100 MG TAB PO (09:00)
[2019-01-04] MEDS: NIFEdipine (XL) 60 MG TAB PO ×2 (09:00→20:39)
[2019-01-04] MEDS: DOCUSATE SODIUM 100 MG CAP PO (09:00)
[2019-01-04] MEDS: LACTULOSE 30ML CUP PO ×3 (09:00→20:42)
[2019-01-04] MEDS: LINAGLIPTIN 5 MG TABLET PO (09:00)
[2019-01-04] MEDS: DORZOLAMIDE/TIMOLOL/PF 0.2 ML DROPERETTE BOTH EYES ×2 (09:00→20:39)
[2019-01-04] MEDS ORDERED: POLYMYXIN/BACITRACIN 1L IRRIG (09:42)
[2019-01-04] MEDS ORDERED: PROPOFOL 20 ML ×2 (10:13→11:03)
[2019-01-04] MEDS ORDERED: PROPOFOL 100 ML (10:13)
[2019-01-04] MEDS ORDERED: KETOROLAC 15 MG INJ IV (10:30)
[2019-01-04] MEDS ORDERED: HYDROmorphONE 1 MG/5 ML IV SYRINGE IV ×2 (10:30)
[2019-01-04] MEDS ORDERED: MEPERIDINE 25 MG INJ IV (10:30)
[2019-01-04] MEDS ORDERED: ONDANSETRON 4 MG INJ IV (10:30)
[2019-01-04] MEDS ORDERED: FENTAnyl 50 MCG/ML VIAL IV ×3 (10:30)
[2019-01-04] MEDS ORDERED: DIPHENHYDRAMINE 50 MG INJ IV (10:30)
[2019-01-04] MEDS ORDERED: FAMOTIDINE 20 MG INJ (11:18)
[2019-01-05] MEDS: morphine 2 MG INJ IV ×4 (01:21→04:33)
[2019-01-05] MEDS: HYDROmorphONE 0.5 MG/0.5 ML SYG IV ×4 (03:08→22:53)
[2019-01-05] MEDS: morphine 4 MG/ML VIAL IV ×2 (05:19→15:10)
[2019-01-05] MEDS: PIPER-TAZO 2.25 GM (PMX) 50 ML IVPB ×3 (05:19→22:00)
[2019-01-05] MEDS: ONDANSETRON 4 MG TAB PO (05:21)
[2019-01-05] MEDS: SEVELAMER CARBONATE 0.8 GM PKT PO ×5 (07:55→21:00)
[2019-01-05] MEDS: ACCU-CHEK XX (08:13)
[2019-01-05] MEDS: LACTULOSE 30ML CUP PO ×3 (08:14→21:00)
[2019-01-05] MEDS: LINAGLIPTIN 5 MG TABLET PO ×2 (08:15→08:20)
[2019-01-05] MEDS: NIFEdipine (XL) 60 MG TAB PO ×2 (08:15→21:00)
[2019-01-05] MEDS: ATENOLOL 100 MG TAB PO (08:16)
[2019-01-05] MEDS: HEPARIN 5,000 UNIT/0.5 ML VIAL SC (08:16)
[2019-01-05] MEDS: DOCUSATE SODIUM 100 MG CAP PO (08:16)
[2019-01-05] MEDS: DORZOLAMIDE/TIMOLOL/PF 0.2 ML DROPERETTE BOTH EYES ×2 (08:17→21:00)
[2019-01-05 08:28] LABS: ADD MAN DIFF? NO
[2019-01-05 08:31] LABS: WHITE BLOOD COUNT 9.7 10^3/ul (4.8-10.8)
[2019-01-05 08:31] LABS: BASOPHILS % 0.2 % (0.0-2.0); EOSINOPHILS % 0.3 % (0.0-7.0); HEMATOCRIT 24.9 % (42.0-52.0); HEMOGLOBIN 7.8 g/dl (14.0-18.0); LYMPHOCYTES # 0.7 10^3/ul (0.8-2.9); LYMPHOCYTES % 7.3 % (15.0-51.0); MEAN CORPUSCULAR HEMOGLOBIN 30.7 pg (29.0-33.0); MEAN CORPUSCULAR HGB CONC 31.3 g/dl (32.0-37.0); MEAN PLATELET VOLUME 8.5 fl (7.4-10.4); NEUTROPHIL # 7.9 10^3/ul (1.6-7.5); NEUTROPHILS % 81.8 % (39.0-77.0); PLATELET COUNT 166 10^3/UL (140-415); RED BLOOD COUNT 2.54 10^6/ul (4.70-6.10); RED CELL DISTRIBUTION WIDTH 13.3 % (11.5-14.5)
[2019-01-05 08:50] LABS: ANION GAP 15 (5-13); BLOOD UREA NITROGEN 61 mg/dl (7-20); CALCIUM 9.4 mg/dl (8.4-10.2); CARBON DIOXIDE 26 mmol/L (21-31); CHLORIDE 100 mmol/L (97-110); CREATININE 7.15 mg/dl (0.61-1.24); Estimated GFR 8 mL/min (>60); GLUCOSE 236 mg/dl (70-220); POTASSIUM 5.1 mmol/L (3.5-5.1); SODIUM 141 mmol/L (135-144)
[2019-01-05] MEDS: HEPARIN 5,000 UNIT/1 ML VIAL SC ×2 (09:45→21:00)
[2019-01-05] MEDS: LIDOCAINE 1% (MDV) 20 ML INJ INJ (15:26)
[2019-01-05 15:52] LABS: HEPATITIS B SURFACE ANTIGEN NEGATIVE (NEGATIVE)
[2019-01-06] MEDS: HYDROCODONE/APAP (10/325) TAB PO (00:13)
[2019-01-06] MEDS: HYDROmorphONE 0.5 MG/0.5 ML SYG IV ×5 (03:28→23:29)
[2019-01-06] MEDS: PIPER-TAZO 2.25 GM (PMX) 50 ML IVPB ×3 (05:07→22:58)
[2019-01-06] MEDS: morphine 4 MG/ML VIAL IV ×3 (05:15→16:38)
[2019-01-06 06:58] LABS: ADD MAN DIFF? NO
[2019-01-06 07:01] LABS: WHITE BLOOD COUNT 9.3 10^3/ul (4.8-10.8)
[2019-01-06 07:01] LABS: BASOPHILS % 0.2 % (0.0-2.0); EOSINOPHILS % 0.3 % (0.0-7.0); HEMATOCRIT 26.6 % (42.0-52.0); HEMOGLOBIN 8.4 g/dl (14.0-18.0); LYMPHOCYTES # 0.9 10^3/ul (0.8-2.9); LYMPHOCYTES % 9.3 % (15.0-51.0); MEAN CORPUSCULAR HEMOGLOBIN 30.8 pg (29.0-33.0); MEAN CORPUSCULAR HGB CONC 31.6 g/dl (32.0-37.0); MEAN CORPUSCULAR VOLUME 97.4 fl (82.0-101.0); MEAN PLATELET VOLUME 8.6 fl (7.4-10.4); MONOCYTE # 0.9 10^3/ul (0.3-0.9); MONOCYTES % 9.4 % (0.0-11.0); NEUTROPHIL # 7.5 10^3/ul (1.6-7.5); NEUTROPHILS % 80.3 % (39.0-77.0); PLATELET COUNT 166 10^3/UL (140-415); RED BLOOD COUNT 2.73 10^6/ul (4.70-6.10); RED CELL DISTRIBUTION WIDTH 13.2 % (11.5-14.5)
[2019-01-06 07:29] LABS: ANION GAP 15 (5-13); BLOOD UREA NITROGEN 32 mg/dl (7-20); CALCIUM 9.6 mg/dl (8.4-10.2); CARBON DIOXIDE 29 mmol/L (21-31); CHLORIDE 98 mmol/L (97-110); CREATININE 5.19 mg/dl (0.61-1.24); Estimated GFR 11 mL/min (>60); GLUCOSE 138 mg/dl (70-220); POTASSIUM 4.4 mmol/L (3.5-5.1); SODIUM 142 mmol/L (135-144)
[2019-01-06] MEDS: SEVELAMER CARBONATE 0.8 GM PKT PO ×4 (07:55→20:18)
[2019-01-06] MEDS: DORZOLAMIDE/TIMOLOL/PF 0.2 ML DROPERETTE BOTH EYES ×2 (08:15→20:18)
[2019-01-06] MEDS: LINAGLIPTIN 5 MG TABLET PO (08:15)
[2019-01-06] MEDS: NIFEdipine (XL) 60 MG TAB PO ×2 (08:16→20:18)
[2019-01-06] MEDS: DOCUSATE SODIUM 100 MG CAP PO (08:16)
[2019-01-06] MEDS: ATENOLOL 100 MG TAB PO (08:17)
[2019-01-06] MEDS: HEPARIN 5,000 UNIT/1 ML VIAL SC ×2 (08:22→20:46)
[2019-01-06] MEDS: LACTULOSE 30ML CUP PO ×2 (08:22→20:18)
[2019-01-06] MEDS: ACCU-CHEK XX (08:22)
[2019-01-06] MEDS ORDERED: VANCOMYCIN IV PER PHARMACY XX (13:30)
[2019-01-06] MEDS: LIDOCAINE 1% (MDV) 20 ML INJ INJ (15:18)
[2019-01-06] MEDS: VANCOMYCIN HCL 1.75 GM in SOD CHLORIDE 0.9% 500 ML IVPB (18:23)
[2019-01-07] MEDS: morphine 4 MG/ML VIAL IV (01:03)
[2019-01-07] MEDS: PIPER-TAZO 2.25 GM (PMX) 50 ML IVPB (06:00)
[2019-01-07] MEDS: SEVELAMER CARBONATE 0.8 GM PKT PO ×4 (07:55→20:23)
[2019-01-07] MEDS: LACTULOSE 30ML CUP PO ×2 (08:18→20:23)
[2019-01-07] MEDS: LINAGLIPTIN 5 MG TABLET PO (08:18)
[2019-01-07] MEDS: NIFEdipine (XL) 60 MG TAB PO ×2 (08:18→20:23)
[2019-01-07] MEDS: ATENOLOL 100 MG TAB PO (08:18)
[2019-01-07] MEDS: ACCU-CHEK XX (08:19)
[2019-01-07] MEDS: DOCUSATE SODIUM 100 MG CAP PO (08:19)
[2019-01-07] MEDS: HEPARIN 5,000 UNIT/1 ML VIAL SC ×2 (08:20→20:23)
[2019-01-07] MEDS: DORZOLAMIDE/TIMOLOL/PF 0.2 ML DROPERETTE BOTH EYES ×2 (08:20→20:22)
[2019-01-07 08:23] LABS: ADD MAN DIFF? NO
[2019-01-07 08:25] LABS: WHITE BLOOD COUNT 6.8 10^3/ul (4.8-10.8)
[2019-01-07 08:25] LABS: BASOPHILS % 0.3 % (0.0-2.0); EOSINOPHILS # 0.1 10^3/ul (0.0-0.5); HEMATOCRIT 27.5 % (42.0-52.0); HEMOGLOBIN 8.6 g/dl (14.0-18.0); LYMPHOCYTES # 1.1 10^3/ul (0.8-2.9); LYMPHOCYTES % 16.5 % (15.0-51.0); MEAN CORPUSCULAR HEMOGLOBIN 30.2 pg (29.0-33.0); MEAN CORPUSCULAR HGB CONC 31.3 g/dl (32.0-37.0); MEAN CORPUSCULAR VOLUME 96.5 fl (82.0-101.0); MEAN PLATELET VOLUME 8.7 fl (7.4-10.4); MONOCYTE # 0.7 10^3/ul (0.3-0.9); MONOCYTES % 10.5 % (0.0-11.0); NEUTROPHIL # 4.8 10^3/ul (1.6-7.5); NEUTROPHILS % 70.1 % (39.0-77.0); PLATELET COUNT 178 10^3/UL (140-415); RED BLOOD COUNT 2.85 10^6/ul (4.70-6.10); RED CELL DISTRIBUTION WIDTH 13.1 % (11.5-14.5)
[2019-01-07 08:36] LABS: HEMOGLOBIN A1C 6.1 % (0-5.9)
[2019-01-07 08:46] LABS: ANION GAP 15 (5-13); BLOOD UREA NITROGEN 27 mg/dl (7-20); CALCIUM 10.3 mg/dl (8.4-10.2); CARBON DIOXIDE 28 mmol/L (21-31); CHLORIDE 97 mmol/L (97-110); CREATININE 4.45 mg/dl (0.61-1.24); Estimated GFR 14 mL/min (>60); GLUCOSE 114 mg/dl (70-220); POTASSIUM 4.1 mmol/L (3.5-5.1); SODIUM 140 mmol/L (135-144)
[2019-01-07] MEDS: LEVOFLOXACIN 250 MG TAB PO (14:00)
[2019-01-07] MEDS: ACETAMINOPHEN 325 MG TAB PO (21:52)
[2019-01-08] MEDS: HYDROCODONE/APAP (10/325) TAB PO ×4 (03:18→18:22)
[2019-01-08 05:32] LABS: ADD MAN DIFF? NO
[2019-01-08 05:37] LABS: WHITE BLOOD COUNT 6.6 10^3/ul (4.8-10.8)
[2019-01-08 05:37] LABS: BASOPHILS % 0.3 % (0.0-2.0); EOSINOPHILS # 0.2 10^3/ul (0.0-0.5); EOSINOPHILS % 2.7 % (0.0-7.0); HEMATOCRIT 26.8 % (42.0-52.0); HEMOGLOBIN 8.6 g/dl (14.0-18.0); LYMPHOCYTES % 15.8 % (15.0-51.0); MEAN CORPUSCULAR HEMOGLOBIN 30.7 pg (29.0-33.0); MEAN CORPUSCULAR HGB CONC 32.1 g/dl (32.0-37.0); MEAN CORPUSCULAR VOLUME 95.7 fl (82.0-101.0); MONOCYTE # 0.8 10^3/ul (0.3-0.9); MONOCYTES % 12.1 % (0.0-11.0); NEUTROPHIL # 4.5 10^3/ul (1.6-7.5); NEUTROPHILS % 68.5 % (39.0-77.0); PLATELET COUNT 188 10^3/UL (140-415); RED CELL DISTRIBUTION WIDTH 13.1 % (11.5-14.5)
[2019-01-08 06:00] LABS: ANION GAP 15 (5-13); BLOOD UREA NITROGEN 41 mg/dl (7-20); CALCIUM 10.4 mg/dl (8.4-10.2); CARBON DIOXIDE 28 mmol/L (21-31); CHLORIDE 95 mmol/L (97-110); CREATININE 6.44 mg/dl (0.61-1.24); Estimated GFR 9 mL/min (>60); GLUCOSE 137 mg/dl (70-220); POTASSIUM 4.7 mmol/L (3.5-5.1); SODIUM 138 mmol/L (135-144)
[2019-01-08 06:18] LABS: VANCOMYCIN,RANDOM 24.1 ug/ml
[2019-01-08] MEDS: SEVELAMER CARBONATE 0.8 GM PKT PO ×4 (07:55→21:00)
[2019-01-08] MEDS: DOCUSATE SODIUM 100 MG CAP PO (08:56)
[2019-01-08] MEDS: NIFEdipine (XL) 60 MG TAB PO ×2 (08:56→21:00)
[2019-01-08] MEDS: DORZOLAMIDE/TIMOLOL/PF 0.2 ML DROPERETTE BOTH EYES ×2 (08:56→21:00)
[2019-01-08] MEDS: LACTULOSE 30ML CUP PO ×2 (08:56→21:00)
[2019-01-08] MEDS: HEPARIN 5,000 UNIT/1 ML VIAL SC ×2 (08:57→21:00)
[2019-01-08] MEDS: ATENOLOL 100 MG TAB PO (08:57)
[2019-01-08] MEDS: LINAGLIPTIN 5 MG TABLET PO (08:57)
[2019-01-08] MEDS: ACCU-CHEK XX (08:57)
[2019-01-08] MEDS: LIDOCAINE 1% (MDV) 20 ML INJ INJ (20:59)
[2019-01-09] MEDS: HYDROCODONE/APAP (10/325) TAB PO (01:24)
[2019-01-09] MEDS: HYDROmorphONE 0.5 MG/0.5 ML SYG IV ×5 (03:40→21:48)
[2019-01-09 05:32] LABS: ADD MAN DIFF? NO
[2019-01-09 05:44] LABS: BASOPHILS % 0.3 % (0.0-2.0); EOSINOPHILS # 0.1 10^3/ul (0.0-0.5); EOSINOPHILS % 2.2 % (0.0-7.0); HEMATOCRIT 27.3 % (42.0-52.0); HEMOGLOBIN 8.6 g/dl (14.0-18.0); LYMPHOCYTES # 1.2 10^3/ul (0.8-2.9); LYMPHOCYTES % 18.3 % (15.0-51.0); MEAN CORPUSCULAR HEMOGLOBIN 30.3 pg (29.0-33.0); MEAN CORPUSCULAR HGB CONC 31.5 g/dl (32.0-37.0); MEAN CORPUSCULAR VOLUME 96.1 fl (82.0-101.0); MEAN PLATELET VOLUME 8.9 fl (7.4-10.4); MONOCYTE # 0.7 10^3/ul (0.3-0.9); MONOCYTES % 11.2 % (0.0-11.0); NEUTROPHIL # 4.3 10^3/ul (1.6-7.5); NEUTROPHILS % 67.7 % (39.0-77.0); PLATELET COUNT 211 10^3/UL (140-415); RED BLOOD COUNT 2.84 10^6/ul (4.70-6.10); RED CELL DISTRIBUTION WIDTH 13.2 % (11.5-14.5)
[2019-01-09 05:44] LABS: WHITE BLOOD COUNT 6.4 10^3/ul (4.8-10.8)
[2019-01-09 05:54] LABS: ANION GAP 12 (5-13); BLOOD UREA NITROGEN 22 mg/dl (7-20); CALCIUM 10.3 mg/dl (8.4-10.2); CARBON DIOXIDE 31 mmol/L (21-31); CHLORIDE 98 mmol/L (97-110); CREATININE 4.17 mg/dl (0.61-1.24); Estimated GFR 15 mL/min (>60); GLUCOSE 139 mg/dl (70-220); POTASSIUM 4.3 mmol/L (3.5-5.1); SODIUM 141 mmol/L (135-144)
[2019-01-09] MEDS: SEVELAMER CARBONATE 0.8 GM PKT PO ×4 (08:00→21:00)
[2019-01-09] MEDS: morphine 4 MG/ML VIAL IV ×3 (08:19→16:24)
[2019-01-09] MEDS: ATENOLOL 100 MG TAB PO (08:23)
[2019-01-09] MEDS: ACCU-CHEK XX (08:24)
[2019-01-09] MEDS: NIFEdipine (XL) 60 MG TAB PO ×2 (08:24→21:00)
[2019-01-09] MEDS: LINAGLIPTIN 5 MG TABLET PO (08:28)
[2019-01-09] MEDS: DOCUSATE SODIUM 100 MG CAP PO (08:28)
[2019-01-09] MEDS: DORZOLAMIDE/TIMOLOL/PF 0.2 ML DROPERETTE BOTH EYES ×2 (08:28→21:00)
[2019-01-09] MEDS: HEPARIN 5,000 UNIT/1 ML VIAL SC ×2 (08:28→21:59)
[2019-01-09] MEDS: LACTULOSE 30ML CUP PO ×2 (08:28→21:00)
[2019-01-09] MEDS: LEVOFLOXACIN 250 MG TAB PO (14:26)
[2019-01-09] MEDS: VANCOMYCIN 1 GM 250 ML IVPB (17:57)
[2019-01-10] MEDS: morphine 4 MG/ML VIAL IV (00:03)
[2019-01-10] MEDS: HYDROmorphONE 0.5 MG/0.5 ML SYG IV ×5 (02:49→20:12)
[2019-01-10] MEDS: SEVELAMER CARBONATE 0.8 GM PKT PO ×4 (08:00→21:00)
[2019-01-10] MEDS: ACCU-CHEK XX (08:12)
[2019-01-10] MEDS: DORZOLAMIDE/TIMOLOL/PF 0.2 ML DROPERETTE BOTH EYES ×2 (08:49→21:00)
[2019-01-10] MEDS: ATENOLOL 100 MG TAB PO (09:00)
[2019-01-10] MEDS: DOCUSATE SODIUM 100 MG CAP PO (09:00)
[2019-01-10] MEDS: NIFEdipine (XL) 60 MG TAB PO ×2 (09:00→21:00)
[2019-01-10] MEDS: LACTULOSE 30ML CUP PO ×2 (09:00→21:00)
[2019-01-10] MEDS: LINAGLIPTIN 5 MG TABLET PO (09:00)
[2019-01-10] MEDS: HEPARIN 5,000 UNIT/1 ML VIAL SC ×2 (11:03→21:00)
[2019-01-11] MEDS: HYDROmorphONE 0.5 MG/0.5 ML SYG IV ×7 (00:26→23:29)
[2019-01-11] MEDS: SEVELAMER CARBONATE 0.8 GM PKT PO ×4 (08:00→20:27)
[2019-01-11] MEDS: HEPARIN 5,000 UNIT/1 ML VIAL SC ×2 (09:00→20:28)
[2019-01-11] MEDS: LINAGLIPTIN 5 MG TABLET PO (09:00)
[2019-01-11] MEDS: LACTULOSE 30ML CUP PO ×2 (09:00→20:27)
[2019-01-11] MEDS: ACCU-CHEK XX (09:00)
[2019-01-11] MEDS: DOCUSATE SODIUM 100 MG CAP PO (09:00)
[2019-01-11] MEDS: ATENOLOL 100 MG TAB PO (09:00)
[2019-01-11] MEDS: DORZOLAMIDE/TIMOLOL/PF 0.2 ML DROPERETTE BOTH EYES ×2 (09:00→20:27)
[2019-01-11] MEDS: NIFEdipine (XL) 60 MG TAB PO ×2 (09:11→20:27)
[2019-01-11] MEDS: LEVOFLOXACIN 250 MG TAB PO (14:14)
[2019-01-11] MEDS: morphine 4 MG/ML VIAL IV (21:25)
[2019-01-12] MEDS: morphine 4 MG/ML VIAL IV ×3 (02:15→22:23)
[2019-01-12] MEDS: HYDROmorphONE 0.5 MG/0.5 ML SYG IV ×3 (04:42→20:51)
[2019-01-12] MEDS: SEVELAMER CARBONATE 0.8 GM PKT PO ×4 (08:00→20:51)
[2019-01-12] MEDS: DOCUSATE SODIUM 100 MG CAP PO (08:08)
[2019-01-12] MEDS: DORZOLAMIDE/TIMOLOL/PF 0.2 ML DROPERETTE BOTH EYES ×2 (08:08→20:50)
[2019-01-12] MEDS: LACTULOSE 30ML CUP PO ×2 (08:08→20:50)
[2019-01-12] MEDS: ATENOLOL 100 MG TAB PO (08:09)
[2019-01-12] MEDS: LINAGLIPTIN 5 MG TABLET PO (08:09)
[2019-01-12] MEDS: ACCU-CHEK XX (08:09)
[2019-01-12] MEDS: NIFEdipine (XL) 60 MG TAB PO ×2 (08:20→20:50)
[2019-01-12] MEDS: HEPARIN 5,000 UNIT/1 ML VIAL SC ×2 (08:20→20:53)
[2019-01-13] MEDS: morphine 4 MG/ML VIAL IV (05:29)
[2019-01-13] MEDS: DOCUSATE SODIUM 100 MG CAP PO (08:47)
[2019-01-13] MEDS: SEVELAMER CARBONATE 0.8 GM PKT PO ×4 (08:47→21:00)
[2019-01-13] MEDS: DORZOLAMIDE/TIMOLOL/PF 0.2 ML DROPERETTE BOTH EYES ×2 (08:47→21:00)
[2019-01-13] MEDS: NIFEdipine (XL) 60 MG TAB PO ×2 (08:47→21:00)
[2019-01-13] MEDS: LINAGLIPTIN 5 MG TABLET PO (08:48)
[2019-01-13] MEDS: HEPARIN 5,000 UNIT/1 ML VIAL SC ×2 (08:50→21:00)
[2019-01-13] MEDS: ATENOLOL 100 MG TAB PO (08:57)
[2019-01-13] MEDS: LACTULOSE 30ML CUP PO ×2 (09:00→22:03)
[2019-01-13] MEDS: ACCU-CHEK XX (09:00)
[2019-01-13] MEDS: HYDROmorphONE 0.5 MG/0.5 ML SYG IV ×2 (12:41→22:04)
[2019-01-13] MEDS: ALBUMIN HUMAN 25% 100 ML IV (17:36)
[2019-01-14] MEDS: HYDROmorphONE 0.5 MG/0.5 ML SYG IV ×4 (02:59→20:42)
[2019-01-14] MEDS: morphine 4 MG/ML VIAL IV ×3 (04:46→16:11)
[2019-01-14] MEDS: PIPER-TAZO 2.25 GM (PMX) 50 ML IVPB ×3 (06:02→22:54)
[2019-01-14] MEDS: SEVELAMER CARBONATE 0.8 GM PKT PO ×4 (08:00→20:47)
[2019-01-14] MEDS: ACCU-CHEK XX (09:00)
[2019-01-14] MEDS: LACTULOSE 30ML CUP PO ×2 (09:00→20:46)
[2019-01-14] MEDS: HEPARIN 5,000 UNIT/1 ML VIAL SC ×2 (09:00→20:43)
[2019-01-14] MEDS: DOCUSATE SODIUM 100 MG CAP PO (09:36)
[2019-01-14] MEDS: ATENOLOL 100 MG TAB PO (09:37)
[2019-01-14] MEDS: NIFEdipine (XL) 60 MG TAB PO ×2 (09:37→20:40)
[2019-01-14] MEDS: LINAGLIPTIN 5 MG TABLET PO (09:37)
[2019-01-14] MEDS: DORZOLAMIDE/TIMOLOL/PF 0.2 ML DROPERETTE BOTH EYES ×2 (09:38→20:46)
[2019-01-14 15:40] LABS: ADD MAN DIFF? NO
[2019-01-14 15:43] LABS: WHITE BLOOD COUNT 6.1 10^3/ul (4.8-10.8)
[2019-01-14 15:43] LABS: BASOPHILS % 0.5 % (0.0-2.0); EOSINOPHILS # 0.2 10^3/ul (0.0-0.5); EOSINOPHILS % 3.5 % (0.0-7.0); HEMATOCRIT 27.2 % (42.0-52.0); HEMOGLOBIN 8.4 g/dl (14.0-18.0); LYMPHOCYTES # 1.3 10^3/ul (0.8-2.9); LYMPHOCYTES % 21.3 % (15.0-51.0); MEAN CORPUSCULAR HEMOGLOBIN 29.8 pg (29.0-33.0); MEAN CORPUSCULAR HGB CONC 30.9 g/dl (32.0-37.0); MEAN CORPUSCULAR VOLUME 96.5 fl (82.0-101.0); MEAN PLATELET VOLUME 8.6 fl (7.4-10.4); MONOCYTE # 0.6 10^3/ul (0.3-0.9); MONOCYTES % 10.4 % (0.0-11.0); NEUTROPHIL # 3.9 10^3/ul (1.6-7.5); NEUTROPHILS % 64.1 % (39.0-77.0); PLATELET COUNT 316 10^3/UL (140-415); RED BLOOD COUNT 2.82 10^6/ul (4.70-6.10); RED CELL DISTRIBUTION WIDTH 13.2 % (11.5-14.5)
[2019-01-14 16:03] LABS: ANION GAP 12 (5-13); BLOOD UREA NITROGEN 48 mg/dl (7-20); CALCIUM 10.7 mg/dl (8.4-10.2); CARBON DIOXIDE 30 mmol/L (21-31); CHLORIDE 100 mmol/L (97-110); CREATININE 6.06 mg/dl (0.61-1.24); Estimated GFR 10 mL/min (>60); GLUCOSE 160 mg/dl (70-220); POTASSIUM 5.7 mmol/L (3.5-5.1); SODIUM 142 mmol/L (135-144)
[2019-01-15] MEDS: morphine 4 MG/ML VIAL IV ×2 (00:59→11:37)
[2019-01-15 05:39] LABS: ADD MAN DIFF? NO
[2019-01-15 05:49] LABS: WHITE BLOOD COUNT 6.6 10^3/ul (4.8-10.8)
[2019-01-15 05:49] LABS: BASOPHILS % 0.5 % (0.0-2.0); EOSINOPHILS # 0.2 10^3/ul (0.0-0.5); EOSINOPHILS % 3.3 % (0.0-7.0); HEMATOCRIT 26.9 % (42.0-52.0); HEMOGLOBIN 8.4 g/dl (14.0-18.0); LYMPHOCYTES # 1.2 10^3/ul (0.8-2.9); LYMPHOCYTES % 17.5 % (15.0-51.0); MEAN CORPUSCULAR HEMOGLOBIN 29.9 pg (29.0-33.0); MEAN CORPUSCULAR HGB CONC 31.2 g/dl (32.0-37.0); MEAN CORPUSCULAR VOLUME 95.7 fl (82.0-101.0); MEAN PLATELET VOLUME 8.6 fl (7.4-10.4); MONOCYTE # 0.7 10^3/ul (0.3-0.9); MONOCYTES % 10.5 % (0.0-11.0); NEUTROPHIL # 4.5 10^3/ul (1.6-7.5); NEUTROPHILS % 67.7 % (39.0-77.0); PLATELET COUNT 310 10^3/UL (140-415); RED BLOOD COUNT 2.81 10^6/ul (4.70-6.10); RED CELL DISTRIBUTION WIDTH 13.1 % (11.5-14.5)
[2019-01-15] MEDS: HYDROmorphONE 0.5 MG/0.5 ML SYG IV ×2 (05:49→13:14)
[2019-01-15] MEDS: PIPER-TAZO 2.25 GM (PMX) 50 ML IVPB ×3 (05:49→22:00)
[2019-01-15 06:29] LABS: ANION GAP 14 (5-13); BLOOD UREA NITROGEN 57 mg/dl (7-20); CALCIUM 10.2 mg/dl (8.4-10.2); CARBON DIOXIDE 27 mmol/L (21-31); CHLORIDE 100 mmol/L (97-110); CREATININE 7.06 mg/dl (0.61-1.24); Estimated GFR 8 mL/min (>60); GLUCOSE 120 mg/dl (70-220); SODIUM 141 mmol/L (135-144)
[2019-01-15] MEDS: LIDOCAINE 1% (MDV) 20 ML INJ INJ (07:27)
[2019-01-15] MEDS: SEVELAMER CARBONATE 0.8 GM PKT PO ×4 (08:00→21:00)
[2019-01-15] MEDS: DORZOLAMIDE/TIMOLOL/PF 0.2 ML DROPERETTE BOTH EYES ×2 (09:00→21:00)
[2019-01-15] MEDS: DOCUSATE SODIUM 100 MG CAP PO (09:00)
[2019-01-15] MEDS: ATENOLOL 100 MG TAB PO (09:00)
[2019-01-15] MEDS: LINAGLIPTIN 5 MG TABLET PO (09:00)
[2019-01-15] MEDS: HEPARIN 5,000 UNIT/1 ML VIAL SC ×2 (09:00→21:00)
[2019-01-15] MEDS: LACTULOSE 30ML CUP PO ×2 (09:00→21:00)
[2019-01-15] MEDS: NIFEdipine (XL) 60 MG TAB PO ×2 (09:00→21:00)
[2019-01-15] MEDS: ACCU-CHEK XX (09:00)
[2019-01-15] MEDS: ALBUMIN HUMAN 25% 100 ML IV (09:31)
[2019-01-15 10:54] LABS: ADD MAN DIFF? NO
[2019-01-15 10:57] LABS: WHITE BLOOD COUNT 6.6 10^3/ul (4.8-10.8)
[2019-01-15 10:57] LABS: BASOPHILS % 0.6 % (0.0-2.0); EOSINOPHILS # 0.2 10^3/ul (0.0-0.5); EOSINOPHILS % 3.5 % (0.0-7.0); HEMATOCRIT 27.4 % (42.0-52.0); HEMOGLOBIN 8.7 g/dl (14.0-18.0); LYMPHOCYTES % 14.6 % (15.0-51.0); MEAN CORPUSCULAR HEMOGLOBIN 29.5 pg (29.0-33.0); MEAN CORPUSCULAR HGB CONC 31.8 g/dl (32.0-37.0); MEAN CORPUSCULAR VOLUME 92.9 fl (82.0-101.0); MEAN PLATELET VOLUME 8.4 fl (7.4-10.4); MONOCYTE # 0.6 10^3/ul (0.3-0.9); MONOCYTES % 9.4 % (0.0-11.0); NEUTROPHIL # 4.7 10^3/ul (1.6-7.5); NEUTROPHILS % 71.4 % (39.0-77.0); PLATELET COUNT 306 10^3/UL (140-415); RED BLOOD COUNT 2.95 10^6/ul (4.70-6.10); RED CELL DISTRIBUTION WIDTH 13.2 % (11.5-14.5)
[2019-01-15 11:15] LABS: ALBUMIN 4.7 g/dl (3.3-4.9); ALBUMIN/GLOBULIN RATIO 1.02; ALKALINE PHOSPHATASE 143 IU/L (42-121); ANION GAP 16 (5-13); ASPARTATE AMINO TRANSFERASE 13 IU/L (15-46); BILIRUBIN,INDIRECT 0.1 mg/dl (0-1.1); BILIRUBIN,TOTAL 0.1 mg/dl (0.2-1.3); BLOOD UREA NITROGEN 18 mg/dl (7-20); CALCIUM 10.5 mg/dl (8.4-10.2); CARBON DIOXIDE 28 mmol/L (21-31); CHLORIDE 100 mmol/L (97-110); CREATININE 2.46 mg/dl (0.61-1.24); Estimated GFR 27 mL/min (>60); GLUCOSE 126 mg/dl (70-220); POTASSIUM 3.8 mmol/L (3.5-5.1); SODIUM 144 mmol/L (135-144); TOTAL PROTEIN 9.3 g/dl (6.1-8.1)
[2019-01-15 11:18] LABS: PROTIME 13.3 Sec (11.9-14.9)
[2019-01-15 11:29] LABS: ALANINE AMINOTRANSFERASE < 6 IU/L (13-69)
[2019-01-15] MEDS ORDERED: GLYCOPYRROLATE 0.4 MG INJ (16:59)
[2019-01-15] MEDS ORDERED: MIDAZOLAM 1 MG/ML 2 ML INJ (16:59)
[2019-01-15] MEDS ORDERED: NEOSTIGMINE 3 MG/3 ML SYRINGE (16:59)
[2019-01-15] MEDS ORDERED: LIDOCAINE 2% (SDV) 5 ML INJ (16:59)
[2019-01-15] MEDS ORDERED: BUPIVACAINE 0.5% (SDV) 30 ML INJ (17:00)
[2019-01-15] MEDS ORDERED: ROCURONIUM 50 MG INJ (18:12)
[2019-01-15] MEDS ORDERED: PROPOFOL 20 ML (18:12)
[2019-01-15] MEDS ORDERED: morphine 10 MG INJ (18:21)
[2019-01-15] MEDS: TOBRAMYCIN 1.2 GM POWDER (19:09)
[2019-01-15] MEDS: VANCOMYCIN 1 GM INJ (19:09)
[2019-01-15] MEDS ORDERED: CEFAZOLIN 1 GM INJ (23:49)
[2019-01-15] MEDS ORDERED: FENTAnyl 50 MCG/ML VIAL (23:59)
[2019-01-16] MEDS ORDERED: KETOROLAC 30 MG INJ (00:15)
[2019-01-16] MEDS ORDERED: FENTAnyl 50 MCG/ML VIAL (00:32)
[2019-01-16] MEDS ORDERED: HYDROmorphONE 1 MG/5 ML IV SYRINGE IV ×3 (01:24→01:30)
[2019-01-16] MEDS ORDERED: ONDANSETRON 4 MG INJ IV (01:30)
[2019-01-16] MEDS ORDERED: FENTAnyl 50 MCG/ML VIAL IV ×3 (01:30)
[2019-01-16] MEDS ORDERED: hydrALAzine 20 MG INJ IV (01:30)
[2019-01-16] MEDS ORDERED: METOCLOPRAMIDE 10 MG INJ IV (01:30)
[2019-01-16] MEDS ORDERED: KETOROLAC 30 MG INJ IV (01:30)
[2019-01-16] MEDS ORDERED: ALBUTEROL 0.083% (NEB) 2.5 MG/3 ML AMP HHN (01:30)
[2019-01-16] MEDS ORDERED: MIDAZOLAM 1 MG/ML 2 ML INJ (01:30)
[2019-01-16] MEDS ORDERED: LABETALOL HCL 20MG INJ IV (01:30)
[2019-01-16] MEDS ORDERED: DIPHENHYDRAMINE 50 MG INJ IV (01:30)
[2019-01-16] MEDS ORDERED: MEPERIDINE 25 MG INJ IV (01:30)
[2019-01-16] MEDS: HYDROmorphONE 1 MG/5 ML IV SYRINGE IV ×2 (01:45→03:20)
[2019-01-16] MEDS: MIDAZOLAM 1 MG/ML 2 ML INJ IV (01:46)
[2019-01-16] MEDS: ALBUMIN HUMAN 5% 250 ML IV (01:47)
[2019-01-16] MEDS: EPHEDrine SULFATE 50 MG/5 ML SYG IV (02:22)
[2019-01-16] MEDS: HYDROCODONE/APAP (10/325) TAB PO ×2 (04:02→11:36)
[2019-01-16] MEDS: PIPER-TAZO 2.25 GM (PMX) 50 ML IVPB ×3 (05:22→22:45)
[2019-01-16] MEDS: morphine 4 MG/ML VIAL IM ×2 (05:52→09:13)
[2019-01-16] MEDS ORDERED: CEFAZOLIN 1 GM INJ (07:00)
[2019-01-16] MEDS: ACCU-CHEK XX (09:00)
[2019-01-16] MEDS: DOCUSATE SODIUM 100 MG CAP PO (09:00)
[2019-01-16] MEDS: LACTULOSE 30ML CUP PO ×2 (09:00→21:00)
[2019-01-16] MEDS: LINAGLIPTIN 5 MG TABLET PO (09:15)
[2019-01-16] MEDS: ATENOLOL 100 MG TAB PO (09:16)
[2019-01-16] MEDS: DORZOLAMIDE/TIMOLOL/PF 0.2 ML DROPERETTE BOTH EYES ×2 (09:16→21:08)
[2019-01-16] MEDS: NIFEdipine (XL) 60 MG TAB PO ×2 (09:16→21:00)
[2019-01-16] MEDS: HEPARIN 5,000 UNIT/1 ML VIAL SC ×2 (09:21→21:00)
[2019-01-16] MEDS: SEVELAMER CARBONATE 0.8 GM PKT PO ×4 (09:22→21:00)
[2019-01-16] MEDS ORDERED: VANCOMYCIN IV PER PHARMACY XX (12:00)
[2019-01-16] MEDS: morphine 4 MG/ML VIAL IV (13:32)
[2019-01-16 14:55] LABS: ADD MAN DIFF? NO
[2019-01-16 14:57] LABS: WHITE BLOOD COUNT 10.7 10^3/ul (4.8-10.8)
[2019-01-16 14:57] LABS: BASOPHILS % 0.3 % (0.0-2.0); EOSINOPHILS % 0.4 % (0.0-7.0); HEMATOCRIT 24.2 % (42.0-52.0); HEMOGLOBIN 7.4 g/dl (14.0-18.0); LYMPHOCYTES # 1.1 10^3/ul (0.8-2.9); MEAN CORPUSCULAR HEMOGLOBIN 29.7 pg (29.0-33.0); MEAN CORPUSCULAR HGB CONC 30.6 g/dl (32.0-37.0); MEAN CORPUSCULAR VOLUME 97.2 fl (82.0-101.0); MEAN PLATELET VOLUME 8.8 fl (7.4-10.4); MONOCYTE # 0.8 10^3/ul (0.3-0.9); MONOCYTES % 7.7 % (0.0-11.0); NEUTROPHIL # 8.6 10^3/ul (1.6-7.5); NEUTROPHILS % 81.1 % (39.0-77.0); PLATELET COUNT 284 10^3/UL (140-415); RED BLOOD COUNT 2.49 10^6/ul (4.70-6.10); RED CELL DISTRIBUTION WIDTH 13.3 % (11.5-14.5)
[2019-01-16 15:22] LABS: ANION GAP 16 (5-13); BLOOD UREA NITROGEN 46 mg/dl (7-20); CALCIUM 9.4 mg/dl (8.4-10.2); CARBON DIOXIDE 24 mmol/L (21-31); CHLORIDE 102 mmol/L (97-110); CREATININE 5.64 mg/dl (0.61-1.24); Estimated GFR 10 mL/min (>60); GLUCOSE 123 mg/dl (70-220); POTASSIUM 5.5 mmol/L (3.5-5.1); SODIUM 142 mmol/L (135-144)
[2019-01-16] MEDS: HYDROmorphONE 0.5 MG/0.5 ML SYG IV ×2 (16:32→20:10)
[2019-01-16] MEDS: VANCOMYCIN 1 GM 250 ML IVPB (17:25)
[2019-01-16] MEDS: NA POLYST SULFON 15 GM/60 ML BTL PO (18:44)
[2019-01-17] MEDS: HYDROmorphONE 0.5 MG/0.5 ML SYG IV ×6 (02:02→20:21)
[2019-01-17] MEDS: morphine 4 MG/ML VIAL IV ×3 (04:11→21:57)
[2019-01-17] MEDS: PIPER-TAZO 2.25 GM (PMX) 50 ML IVPB ×3 (05:14→22:45)
[2019-01-17 06:23] LABS: ADD MAN DIFF? NO
[2019-01-17 06:35] LABS: WHITE BLOOD COUNT 8.9 10^3/ul (4.8-10.8)
[2019-01-17 06:35] LABS: ABNORMAL IP MESSAGE 1; BASOPHILS % 0.3 % (0.0-2.0); EOSINOPHILS # 0.2 10^3/ul (0.0-0.5); HEMATOCRIT 20.3 % (42.0-52.0); LYMPHOCYTES % 11.2 % (15.0-51.0); MEAN CORPUSCULAR HGB CONC 30.5 g/dl (32.0-37.0); MEAN CORPUSCULAR VOLUME 98.1 fl (82.0-101.0); MEAN PLATELET VOLUME 9.1 fl (7.4-10.4); MONOCYTE # 0.6 10^3/ul (0.3-0.9); MONOCYTES % 6.7 % (0.0-11.0); NEUTROPHILS % 79.1 % (39.0-77.0); PLATELET COUNT 261 10^3/UL (140-415); POSITIVE DIFF @See below; RED BLOOD COUNT 2.07 10^6/ul (4.70-6.10); RED CELL DISTRIBUTION WIDTH 13.4 % (11.5-14.5)
[2019-01-17 06:48] LABS: ANION GAP 14 (5-13); BLOOD UREA NITROGEN 55 mg/dl (7-20); CALCIUM 10.2 mg/dl (8.4-10.2); CARBON DIOXIDE 26 mmol/L (21-31); CHLORIDE 102 mmol/L (97-110); CREATININE 6.68 mg/dl (0.61-1.24); Estimated GFR 9 mL/min (>60); GLUCOSE 136 mg/dl (70-220); SODIUM 142 mmol/L (135-144)
[2019-01-17 07:39] LABS: HEMOGLOBIN 6.2 g/dl (14.0-18.0)
[2019-01-17] MEDS: NIFEdipine (XL) 60 MG TAB PO ×2 (09:00→21:00)
[2019-01-17] MEDS: ATENOLOL 100 MG TAB PO (09:00)
[2019-01-17] MEDS: ACCU-CHEK XX (09:00)
[2019-01-17] MEDS: LACTULOSE 30ML CUP PO ×2 (09:00→21:00)
[2019-01-17] MEDS: ZINC SULFATE 220 MG CAP PO (09:00)
[2019-01-17] MEDS: DOCUSATE SODIUM 100 MG CAP PO (09:00)
[2019-01-17] MEDS: LINAGLIPTIN 5 MG TABLET PO (09:00)
[2019-01-17] MEDS: SEVELAMER CARBONATE 0.8 GM PKT PO ×4 (09:03→21:00)
[2019-01-17] MEDS: DORZOLAMIDE/TIMOLOL/PF 0.2 ML DROPERETTE BOTH EYES ×3 (09:08→21:57)
[2019-01-17] MEDS: HEPARIN 5,000 UNIT/1 ML VIAL SC ×2 (09:10→22:50)
[2019-01-17 09:45] LABS: RETICULOCYTE RBC 2.11
[2019-01-17 09:45] LABS: RETICULOCYTE COUNT # 0.063 X10^6 (0.020-0.110)
[2019-01-17 09:55] LABS: IRON 36 ug/dl (35-150)
[2019-01-17 09:55] LABS: LACTATE DEHYDROGENASE 230 IU/L (313-618)
[2019-01-17 10:02] LABS: ANISOCYTOSIS 1+ (0-0); BAND NEUTROPHILS #M 0.1 10^3/ul (0.0-0.6); BAND NEUTROPHILS % (M) 2 % (0-4); EOSINOPHILS % (M) 1 % (0-7); LYMPHOCYTES #M 0.5 10^3/ul (0.8-2.9); LYMPHOCYTES % (M) 6 % (15-51); MICROCYTOSIS 1+ (0-0); MONOCYTE #M 0.8 10^3/ul (0.3-0.9); MONOCYTES % (M) 10 % (0-11); PLATELET ESTIMATE NORMAL; POLYCHROMASIA 3+ (0-0); SEG NEUT #M 7.2 10^3/ul (1.6-7.5); SEGMENTED NEUTROPHILS (M) % 81 % (39-77)
[2019-01-17 10:04] LABS: % IRON SATURATION 23 % SAT (22-52); TOTAL IRON BINDING CAPACITY 160 ug/dl (241-421)
[2019-01-17 10:26] LABS: THYROID STIMULATING HORMONE 0.922 MIU/L (0.465-4.680)
[2019-01-17 11:14] LABS: FOLATE > 20.0 ng/ml (2.8-20.0)
[2019-01-17] MEDS: LIDOCAINE 1% (MDV) 20 ML INJ INJ (18:42)
[2019-01-17 19:50] LABS: IMMEDIATE SPIN CROSSMATCH 1 2
[2019-01-18] MEDS: HYDROmorphONE 0.5 MG/0.5 ML SYG IV ×5 (00:30→22:31)
[2019-01-18] MEDS: morphine 4 MG/ML VIAL IV (02:29)
[2019-01-18] MEDS: PIPER-TAZO 2.25 GM (PMX) 50 ML IVPB ×3 (05:22→21:25)
[2019-01-18] MEDS: LACTULOSE 30ML CUP PO ×2 (08:36→21:00)
[2019-01-18] MEDS: ZINC SULFATE 220 MG CAP PO (08:36)
[2019-01-18] MEDS: DOCUSATE SODIUM 100 MG CAP PO (08:36)
[2019-01-18] MEDS: DORZOLAMIDE/TIMOLOL/PF 0.2 ML DROPERETTE BOTH EYES ×2 (08:36→21:00)
[2019-01-18] MEDS: SEVELAMER CARBONATE 0.8 GM PKT PO ×4 (08:37→21:00)
[2019-01-18] MEDS: LINAGLIPTIN 5 MG TABLET PO (08:37)
[2019-01-18] MEDS: ACCU-CHEK XX (08:38)
[2019-01-18] MEDS: NIFEdipine (XL) 60 MG TAB PO ×2 (08:39→21:00)
[2019-01-18] MEDS: ATENOLOL 100 MG TAB PO (08:39)
[2019-01-18] MEDS: HEPARIN 5,000 UNIT/1 ML VIAL SC ×2 (08:42→21:00)
[2019-01-18 08:43] LABS: ADD MAN DIFF? NO
[2019-01-18 08:45] LABS: WHITE BLOOD COUNT 8.8 10^3/ul (4.8-10.8)
[2019-01-18 08:45] LABS: BASOPHILS % 0.2 % (0.0-2.0); EOSINOPHILS # 0.1 10^3/ul (0.0-0.5); HEMATOCRIT 26.4 % (42.0-52.0); HEMOGLOBIN 8.3 g/dl (14.0-18.0); LYMPHOCYTES # 0.8 10^3/ul (0.8-2.9); LYMPHOCYTES % 9.5 % (15.0-51.0); MEAN CORPUSCULAR HEMOGLOBIN 29.3 pg (29.0-33.0); MEAN CORPUSCULAR HGB CONC 31.4 g/dl (32.0-37.0); MEAN CORPUSCULAR VOLUME 93.3 fl (82.0-101.0); MEAN PLATELET VOLUME 8.6 fl (7.4-10.4); MONOCYTE # 0.7 10^3/ul (0.3-0.9); MONOCYTES % 8.3 % (0.0-11.0); NEUTROPHIL # 7.1 10^3/ul (1.6-7.5); NEUTROPHILS % 80.4 % (39.0-77.0); PLATELET COUNT 242 10^3/UL (140-415); RED BLOOD COUNT 2.83 10^6/ul (4.70-6.10); RED CELL DISTRIBUTION WIDTH 15.6 % (11.5-14.5)
[2019-01-18 09:05] LABS: ANION GAP 13 (5-13); BLOOD UREA NITROGEN 28 mg/dl (7-20); CALCIUM 10.3 mg/dl (8.4-10.2); CARBON DIOXIDE 29 mmol/L (21-31); CHLORIDE 101 mmol/L (97-110); CREATININE 4.48 mg/dl (0.61-1.24); Estimated GFR 14 mL/min (>60); GLUCOSE 184 mg/dl (70-220); POTASSIUM 4.3 mmol/L (3.5-5.1); SODIUM 143 mmol/L (135-144)
[2019-01-18 09:51] LABS: VANCOMYCIN,RANDOM 14.2 ug/ml
[2019-01-18] MEDS: VANCOMYCIN 1 GM 250 ML IVPB (16:08)
[2019-01-18] MEDS: morphine 4 MG/ML VIAL IM (23:19)
[2019-01-19] MEDS: HYDROmorphONE 0.5 MG/0.5 ML SYG IV ×6 (01:37→23:14)
[2019-01-19] MEDS: PIPER-TAZO 2.25 GM (PMX) 50 ML IVPB ×2 (05:28→14:00)
[2019-01-19] MEDS: SEVELAMER CARBONATE 0.8 GM PKT PO ×4 (08:00→21:00)
[2019-01-19] MEDS: morphine 4 MG/ML VIAL IM (08:03)
[2019-01-19] MEDS: ACCU-CHEK XX (08:04)
[2019-01-19] MEDS: DORZOLAMIDE/TIMOLOL/PF 0.2 ML DROPERETTE BOTH EYES ×2 (08:38→21:00)
[2019-01-19] MEDS: LINAGLIPTIN 5 MG TABLET PO (08:39)
[2019-01-19] MEDS: DOCUSATE SODIUM 100 MG CAP PO (08:39)
[2019-01-19] MEDS: LACTULOSE 30ML CUP PO ×2 (08:39→21:00)
[2019-01-19] MEDS: ZINC SULFATE 220 MG CAP PO (08:40)
[2019-01-19] MEDS: NIFEdipine (XL) 60 MG TAB PO ×2 (08:44→21:00)
[2019-01-19] MEDS: ATENOLOL 100 MG TAB PO (08:44)
[2019-01-19] MEDS: HEPARIN 5,000 UNIT/1 ML VIAL SC ×2 (08:46→21:00)
[2019-01-19 09:58] LABS: ADD MAN DIFF? NO
[2019-01-19 10:04] LABS: BASOPHILS % 0.3 % (0.0-2.0); EOSINOPHILS # 0.1 10^3/ul (0.0-0.5); EOSINOPHILS % 1.8 % (0.0-7.0); HEMATOCRIT 26.4 % (42.0-52.0); HEMOGLOBIN 8.1 g/dl (14.0-18.0); LYMPHOCYTES % 13.2 % (15.0-51.0); MEAN CORPUSCULAR HEMOGLOBIN 29.1 pg (29.0-33.0); MEAN CORPUSCULAR HGB CONC 30.7 g/dl (32.0-37.0); MEAN PLATELET VOLUME 9.5 fl (7.4-10.4); MONOCYTE # 0.6 10^3/ul (0.3-0.9); MONOCYTES % 7.9 % (0.0-11.0); NEUTROPHILS % 76.4 % (39.0-77.0); PLATELET COUNT 264 10^3/UL (140-415); POSITIVE DIFF @See below; RED BLOOD COUNT 2.78 10^6/ul (4.70-6.10); RED CELL DISTRIBUTION WIDTH 14.9 % (11.5-14.5)
[2019-01-19 10:04] LABS: WHITE BLOOD COUNT 7.9 10^3/ul (4.8-10.8)
[2019-01-19 10:21] LABS: ANION GAP 17 (5-13); BLOOD UREA NITROGEN 49 mg/dl (7-20); CALCIUM 10.2 mg/dl (8.4-10.2); CARBON DIOXIDE 25 mmol/L (21-31); CHLORIDE 98 mmol/L (97-110); CREATININE 6.18 mg/dl (0.61-1.24); Estimated GFR 9 mL/min (>60); GLUCOSE 137 mg/dl (70-220); POTASSIUM 4.6 mmol/L (3.5-5.1); SODIUM 140 mmol/L (135-144)
[2019-01-19 13:22] LABS: OCCULT BLOOD STOOL NEGATIVE (NEGATIVE)
[2019-01-19] MEDS: morphine 4 MG/ML VIAL IV ×2 (15:43→20:53)
[2019-01-19] MEDS: LEVOFLOXACIN 250 MG TAB PO (16:00)
[2019-01-20] MEDS: morphine 4 MG/ML VIAL IV ×5 (01:15→16:57)
[2019-01-20] MEDS: HYDROmorphONE 0.5 MG/0.5 ML SYG IV ×4 (03:17→23:10)
[2019-01-20 05:45] LABS: ADD MAN DIFF? NO
[2019-01-20 05:52] LABS: WHITE BLOOD COUNT 8.2 10^3/ul (4.8-10.8)
[2019-01-20 05:52] LABS: BASOPHILS % 0.2 % (0.0-2.0); EOSINOPHILS # 0.2 10^3/ul (0.0-0.5); EOSINOPHILS % 2.6 % (0.0-7.0); HEMATOCRIT 23.5 % (42.0-52.0); HEMOGLOBIN 7.4 g/dl (14.0-18.0); LYMPHOCYTES # 1.1 10^3/ul (0.8-2.9); LYMPHOCYTES % 13.4 % (15.0-51.0); MEAN CORPUSCULAR HEMOGLOBIN 29.7 pg (29.0-33.0); MEAN CORPUSCULAR HGB CONC 31.5 g/dl (32.0-37.0); MEAN CORPUSCULAR VOLUME 94.4 fl (82.0-101.0); MEAN PLATELET VOLUME 8.9 fl (7.4-10.4); MONOCYTE # 0.8 10^3/ul (0.3-0.9); MONOCYTES % 9.1 % (0.0-11.0); NEUTROPHIL # 6.1 10^3/ul (1.6-7.5); NEUTROPHILS % 74.3 % (39.0-77.0); PLATELET COUNT 272 10^3/UL (140-415); RED BLOOD COUNT 2.49 10^6/ul (4.70-6.10); RED CELL DISTRIBUTION WIDTH 14.5 % (11.5-14.5)
[2019-01-20 06:23] LABS: VANCOMYCIN,RANDOM 19.7 ug/ml
[2019-01-20 06:27] LABS: ANION GAP 16 (5-13); BLOOD UREA NITROGEN 64 mg/dl (7-20); CARBON DIOXIDE 26 mmol/L (21-31); CHLORIDE 99 mmol/L (97-110); CREATININE 7.99 mg/dl (0.61-1.24); Estimated GFR 7 mL/min (>60); GLUCOSE 143 mg/dl (70-220); POTASSIUM 4.4 mmol/L (3.5-5.1); SODIUM 141 mmol/L (135-144)
[2019-01-20] MEDS: SEVELAMER CARBONATE 0.8 GM PKT PO ×4 (08:00→20:25)
[2019-01-20] MEDS: DOCUSATE SODIUM 100 MG CAP PO (09:00)
[2019-01-20] MEDS: LACTULOSE 30ML CUP PO ×2 (09:00→20:30)
[2019-01-20] MEDS: ATENOLOL 100 MG TAB PO (09:00)
[2019-01-20] MEDS: DORZOLAMIDE/TIMOLOL/PF 0.2 ML DROPERETTE BOTH EYES ×2 (09:00→20:21)
[2019-01-20] MEDS: NIFEdipine (XL) 60 MG TAB PO (09:00)
[2019-01-20] MEDS: ACCU-CHEK XX (09:00)
[2019-01-20] MEDS: LINAGLIPTIN 5 MG TABLET PO (09:00)
[2019-01-20] MEDS: ZINC SULFATE 220 MG CAP PO (09:25)
[2019-01-20] MEDS: HEPARIN 5,000 UNIT/1 ML VIAL SC ×2 (09:54→20:26)
[2019-01-20] MEDS: LIDOCAINE 1% (MDV) 20 ML INJ INJ (15:59)
[2019-01-20] MEDS: NIFEdipine (XL) 30 MG TAB PO (20:15)
[2019-01-20] MEDS: HYDROCODONE/APAP (10/325) TAB PO (22:01)
[2019-01-21] MEDS: HYDROmorphONE 0.5 MG/0.5 ML SYG IV ×7 (03:56→23:37)
[2019-01-21 05:19] LABS: ADD MAN DIFF? NO
[2019-01-21 05:22] LABS: BASOPHILS % 0.3 % (0.0-2.0); EOSINOPHILS # 0.2 10^3/ul (0.0-0.5); EOSINOPHILS % 2.5 % (0.0-7.0); HEMATOCRIT 25.6 % (42.0-52.0); HEMOGLOBIN 7.9 g/dl (14.0-18.0); LYMPHOCYTES % 13.4 % (15.0-51.0); MEAN CORPUSCULAR HEMOGLOBIN 28.8 pg (29.0-33.0); MEAN CORPUSCULAR HGB CONC 30.9 g/dl (32.0-37.0); MEAN CORPUSCULAR VOLUME 93.4 fl (82.0-101.0); MEAN PLATELET VOLUME 8.9 fl (7.4-10.4); MONOCYTE # 0.8 10^3/ul (0.3-0.9); MONOCYTES % 9.7 % (0.0-11.0); NEUTROPHIL # 5.7 10^3/ul (1.6-7.5); NEUTROPHILS % 73.5 % (39.0-77.0); PLATELET COUNT 268 10^3/UL (140-415); RED BLOOD COUNT 2.74 10^6/ul (4.70-6.10); RED CELL DISTRIBUTION WIDTH 14.2 % (11.5-14.5)
[2019-01-21 05:22] LABS: WHITE BLOOD COUNT 7.7 10^3/ul (4.8-10.8)
[2019-01-21 05:57] LABS: ANION GAP 12 (5-13); BLOOD UREA NITROGEN 44 mg/dl (7-20); CALCIUM 10.1 mg/dl (8.4-10.2); CARBON DIOXIDE 31 mmol/L (21-31); CHLORIDE 97 mmol/L (97-110); CREATININE 5.01 mg/dl (0.61-1.24); Estimated GFR 12 mL/min (>60); GLUCOSE 167 mg/dl (70-220); POTASSIUM 4.4 mmol/L (3.5-5.1); SODIUM 140 mmol/L (135-144)
[2019-01-21] MEDS: SEVELAMER CARBONATE 0.8 GM PKT PO ×4 (08:30→20:29)
[2019-01-21] MEDS: ZINC SULFATE 220 MG CAP PO (08:31)
[2019-01-21] MEDS: LINAGLIPTIN 5 MG TABLET PO (08:31)
[2019-01-21] MEDS: NIFEdipine (XL) 30 MG TAB PO ×3 (08:31→21:00)
[2019-01-21] MEDS: LACTULOSE 30ML CUP PO ×2 (08:32→20:48)
[2019-01-21] MEDS: DORZOLAMIDE/TIMOLOL/PF 0.2 ML DROPERETTE BOTH EYES ×3 (08:34→21:00)
[2019-01-21] MEDS: ATENOLOL 50 MG TAB PO (08:39)
[2019-01-21] MEDS: HEPARIN 5,000 UNIT/1 ML VIAL SC ×2 (08:50→20:39)
[2019-01-21] MEDS: ACCU-CHEK XX (08:50)
[2019-01-21] MEDS: DOCUSATE SODIUM 100 MG CAP PO (09:00)
[2019-01-21] MEDS: VANCOMYCIN 1 GM 250 ML IVPB (14:06)
[2019-01-21] MEDS: LEVOFLOXACIN 250 MG TAB PO (17:16)
[2019-01-21] MEDS: HYDROCODONE/APAP (10/325) TAB PO (22:38)
[2019-01-22] MEDS: HYDROmorphONE 0.5 MG/0.5 ML SYG IV ×6 (04:02→22:30)
[2019-01-22] MEDS: ACCU-CHEK XX (08:20)
[2019-01-22] MEDS: LIDOCAINE 1% (MDV) 20 ML INJ INJ (08:27)
[2019-01-22] MEDS: ATENOLOL 50 MG TAB PO (09:00)
[2019-01-22] MEDS: NIFEdipine (XL) 30 MG TAB PO ×2 (09:00→21:28)
[2019-01-22] MEDS: DORZOLAMIDE/TIMOLOL/PF 0.2 ML DROPERETTE BOTH EYES ×2 (10:17→21:25)
[2019-01-22] MEDS: LACTULOSE 30ML CUP PO ×2 (10:17→21:00)
[2019-01-22] MEDS: LINAGLIPTIN 5 MG TABLET PO (10:17)
[2019-01-22] MEDS: DOCUSATE SODIUM 100 MG CAP PO (10:17)
[2019-01-22] MEDS: SEVELAMER CARBONATE 0.8 GM PKT PO ×4 (10:17→21:26)
[2019-01-22] MEDS: ZINC SULFATE 220 MG CAP PO (10:18)
[2019-01-22] MEDS: HEPARIN 5,000 UNIT/1 ML VIAL SC ×2 (12:57→21:33)
[2019-01-22] MEDS: HYDROCODONE/APAP (10/325) TAB PO (17:01)
[2019-01-23] MEDS: HYDROmorphONE 0.5 MG/0.5 ML SYG IV ×8 (01:27→23:49)
[2019-01-23] MEDS: SEVELAMER CARBONATE 0.8 GM PKT PO ×4 (08:00→20:02)
[2019-01-23 08:16] LABS: ADD MAN DIFF? NO
[2019-01-23 08:20] LABS: BASOPHILS % 0.4 % (0.0-2.0); EOSINOPHILS # 0.1 10^3/ul (0.0-0.5); EOSINOPHILS % 1.3 % (0.0-7.0); HEMATOCRIT 25.7 % (42.0-52.0); HEMOGLOBIN 7.9 g/dl (14.0-18.0); LYMPHOCYTES # 1.3 10^3/ul (0.8-2.9); LYMPHOCYTES % 16.9 % (15.0-51.0); MEAN CORPUSCULAR HEMOGLOBIN 29.2 pg (29.0-33.0); MEAN CORPUSCULAR HGB CONC 30.7 g/dl (32.0-37.0); MEAN CORPUSCULAR VOLUME 94.8 fl (82.0-101.0); MEAN PLATELET VOLUME 9.1 fl (7.4-10.4); MONOCYTE # 0.7 10^3/ul (0.3-0.9); MONOCYTES % 9.4 % (0.0-11.0); NEUTROPHIL # 5.7 10^3/ul (1.6-7.5); NEUTROPHILS % 71.4 % (39.0-77.0); PLATELET COUNT 276 10^3/UL (140-415); RED BLOOD COUNT 2.71 10^6/ul (4.70-6.10); RED CELL DISTRIBUTION WIDTH 13.7 % (11.5-14.5)
[2019-01-23 08:20] LABS: WHITE BLOOD COUNT 7.9 10^3/ul (4.8-10.8)
[2019-01-23 08:36] LABS: ANION GAP 13 (5-13); BLOOD UREA NITROGEN 51 mg/dl (7-20); CALCIUM 10.6 mg/dl (8.4-10.2); CARBON DIOXIDE 34 mmol/L (21-31); CHLORIDE 93 mmol/L (97-110); CREATININE 5.33 mg/dl (0.61-1.24); Estimated GFR 11 mL/min (>60); GLUCOSE 197 mg/dl (70-220); POTASSIUM 4.9 mmol/L (3.5-5.1); SODIUM 140 mmol/L (135-144)
[2019-01-23] MEDS: ACCU-CHEK XX (08:55)
[2019-01-23] MEDS: LINAGLIPTIN 5 MG TABLET PO (08:55)
[2019-01-23] MEDS: LACTULOSE 30ML CUP PO ×3 (08:56→23:44)
[2019-01-23] MEDS: DOCUSATE SODIUM 100 MG CAP PO (08:56)
[2019-01-23] MEDS: DORZOLAMIDE/TIMOLOL/PF 0.2 ML DROPERETTE BOTH EYES ×2 (08:56→20:01)
[2019-01-23] MEDS: NIFEdipine (XL) 30 MG TAB PO ×2 (08:57→20:01)
[2019-01-23] MEDS: HEPARIN 5,000 UNIT/1 ML VIAL SC ×2 (08:57→20:04)
[2019-01-23] MEDS: ZINC SULFATE 220 MG CAP PO (08:57)
[2019-01-23] MEDS: ATENOLOL 50 MG TAB PO (08:57)
[2019-01-23] MEDS: LEVOFLOXACIN 250 MG TAB PO (17:14)
[2019-01-24] MEDS: HYDROmorphONE 0.5 MG/0.5 ML SYG IV ×6 (05:35→23:21)
[2019-01-24] MEDS: LINAGLIPTIN 5 MG TABLET PO (09:00)
[2019-01-24] MEDS: ACCU-CHEK XX (09:00)
[2019-01-24] MEDS: SEVELAMER CARBONATE 0.8 GM PKT PO ×4 (09:01→20:48)
[2019-01-24] MEDS: LACTULOSE 30ML CUP PO ×2 (09:01→20:48)
[2019-01-24] MEDS: ATENOLOL 50 MG TAB PO (09:01)
[2019-01-24] MEDS: DOCUSATE SODIUM 100 MG CAP PO (09:01)
[2019-01-24] MEDS: ZINC SULFATE 220 MG CAP PO (09:01)
[2019-01-24] MEDS: NIFEdipine (XL) 30 MG TAB PO ×2 (09:01→20:48)
[2019-01-24] MEDS: DORZOLAMIDE/TIMOLOL/PF 0.2 ML DROPERETTE BOTH EYES ×2 (09:03→20:48)
[2019-01-24] MEDS: HEPARIN 5,000 UNIT/1 ML VIAL SC ×2 (09:06→20:48)
[2019-01-24 13:54] LABS: ADD MAN DIFF? NO
[2019-01-24 13:57] LABS: BASOPHILS % 0.3 % (0.0-2.0); EOSINOPHILS # 0.2 10^3/ul (0.0-0.5); EOSINOPHILS % 2.2 % (0.0-7.0); HEMATOCRIT 25.3 % (42.0-52.0); HEMOGLOBIN 7.8 g/dl (14.0-18.0); LYMPHOCYTES # 1.1 10^3/ul (0.8-2.9); LYMPHOCYTES % 14.4 % (15.0-51.0); MEAN CORPUSCULAR HEMOGLOBIN 28.8 pg (29.0-33.0); MEAN CORPUSCULAR HGB CONC 30.8 g/dl (32.0-37.0); MEAN CORPUSCULAR VOLUME 93.4 fl (82.0-101.0); MEAN PLATELET VOLUME 9.1 fl (7.4-10.4); MONOCYTE # 0.7 10^3/ul (0.3-0.9); MONOCYTES % 9.8 % (0.0-11.0); NEUTROPHIL # 5.4 10^3/ul (1.6-7.5); NEUTROPHILS % 72.8 % (39.0-77.0); PLATELET COUNT 284 10^3/UL (140-415); RED BLOOD COUNT 2.71 10^6/ul (4.70-6.10); RED CELL DISTRIBUTION WIDTH 13.4 % (11.5-14.5)
[2019-01-24 13:57] LABS: WHITE BLOOD COUNT 7.4 10^3/ul (4.8-10.8)
[2019-01-24 14:13] LABS: ANION GAP 16 (5-13); BLOOD UREA NITROGEN 77 mg/dl (7-20); CALCIUM 10.1 mg/dl (8.4-10.2); CARBON DIOXIDE 29 mmol/L (21-31); CHLORIDE 92 mmol/L (97-110); CREATININE 7.18 mg/dl (0.61-1.24); Estimated GFR 8 mL/min (>60); GLUCOSE 180 mg/dl (70-220); POTASSIUM 5.3 mmol/L (3.5-5.1); SODIUM 137 mmol/L (135-144)
[2019-01-25] MEDS: HYDROmorphONE 0.5 MG/0.5 ML SYG IV ×4 (02:54→20:52)
[2019-01-25 07:46] LABS: VANCOMYCIN,RANDOM 13.4 ug/ml
[2019-01-25] MEDS: SEVELAMER CARBONATE 0.8 GM PKT PO ×4 (08:00→20:52)
[2019-01-25] MEDS: LINAGLIPTIN 5 MG TABLET PO (08:32)
[2019-01-25] MEDS: morphine 4 MG/ML VIAL IV ×4 (08:34→23:39)
[2019-01-25] MEDS: ACCU-CHEK XX (08:36)
[2019-01-25] MEDS: DORZOLAMIDE/TIMOLOL/PF 0.2 ML DROPERETTE BOTH EYES ×2 (08:43→20:51)
[2019-01-25] MEDS: DOCUSATE SODIUM 100 MG CAP PO (08:44)
[2019-01-25] MEDS: LACTULOSE 30ML CUP PO ×2 (08:44→20:52)
[2019-01-25] MEDS: NIFEdipine (XL) 30 MG TAB PO ×2 (08:44→20:51)
[2019-01-25] MEDS: ATENOLOL 50 MG TAB PO (08:44)
[2019-01-25] MEDS: HEPARIN 5,000 UNIT/1 ML VIAL SC ×2 (08:45→20:54)
[2019-01-25] MEDS: ZINC SULFATE 220 MG CAP PO (08:45)
[2019-01-25] MEDS: VANCOMYCIN 1 GM 250 ML IVPB (15:07)
[2019-01-25] MEDS: LEVOFLOXACIN 250 MG TAB PO (17:40)
[2019-01-26] MEDS: HYDROmorphONE 0.5 MG/0.5 ML SYG IV ×4 (01:59→19:18)
[2019-01-26] MEDS: morphine 4 MG/ML VIAL IV ×4 (06:40→23:45)
[2019-01-26 07:36] LABS: ADD MAN DIFF? NO
[2019-01-26 07:41] LABS: WHITE BLOOD COUNT 6.6 10^3/ul (4.8-10.8)
[2019-01-26 07:41] LABS: BASOPHILS % 0.3 % (0.0-2.0); EOSINOPHILS # 0.3 10^3/ul (0.0-0.5); EOSINOPHILS % 3.8 % (0.0-7.0); HEMATOCRIT 25.7 % (42.0-52.0); HEMOGLOBIN 7.9 g/dl (14.0-18.0); LYMPHOCYTES # 1.4 10^3/ul (0.8-2.9); LYMPHOCYTES % 21.7 % (15.0-51.0); MEAN CORPUSCULAR HEMOGLOBIN 28.7 pg (29.0-33.0); MEAN CORPUSCULAR HGB CONC 30.7 g/dl (32.0-37.0); MEAN CORPUSCULAR VOLUME 93.5 fl (82.0-101.0); MEAN PLATELET VOLUME 9.4 fl (7.4-10.4); MONOCYTE # 0.9 10^3/ul (0.3-0.9); MONOCYTES % 13.1 % (0.0-11.0); NEUTROPHILS % 60.5 % (39.0-77.0); PLATELET COUNT 311 10^3/UL (140-415); RED BLOOD COUNT 2.75 10^6/ul (4.70-6.10); RED CELL DISTRIBUTION WIDTH 13.6 % (11.5-14.5)
[2019-01-26] MEDS: SEVELAMER CARBONATE 0.8 GM PKT PO ×4 (08:00→21:00)
[2019-01-26 08:11] LABS: ANION GAP 14 (5-13); BLOOD UREA NITROGEN 66 mg/dl (7-20); CALCIUM 10.5 mg/dl (8.4-10.2); CARBON DIOXIDE 30 mmol/L (21-31); CHLORIDE 95 mmol/L (97-110); CREATININE 6.47 mg/dl (0.61-1.24); Estimated GFR 9 mL/min (>60); GLUCOSE 124 mg/dl (70-220); POTASSIUM 5.3 mmol/L (3.5-5.1); SODIUM 139 mmol/L (135-144)
[2019-01-26] MEDS: ACCU-CHEK XX (08:11)
[2019-01-26] MEDS: ATENOLOL 50 MG TAB PO (09:00)
[2019-01-26] MEDS: LINAGLIPTIN 5 MG TABLET PO (09:00)
[2019-01-26] MEDS: NIFEdipine (XL) 30 MG TAB PO ×2 (09:00→21:00)
[2019-01-26] MEDS: DOCUSATE SODIUM 100 MG CAP PO (09:00)
[2019-01-26] MEDS: DORZOLAMIDE/TIMOLOL/PF 0.2 ML DROPERETTE BOTH EYES ×2 (09:00→21:00)
[2019-01-26] MEDS: LACTULOSE 30ML CUP PO ×2 (09:00→21:00)
[2019-01-26] MEDS: HEPARIN 5,000 UNIT/1 ML VIAL SC ×2 (09:00→21:00)
[2019-01-26] MEDS: ZINC SULFATE 220 MG CAP PO (09:00)
[2019-01-27] MEDS: HYDROmorphONE 0.5 MG/0.5 ML SYG IV ×5 (01:37→22:47)
[2019-01-27] MEDS: SEVELAMER CARBONATE 0.8 GM PKT PO ×4 (08:00→21:00)
[2019-01-27] MEDS: NIFEdipine (XL) 30 MG TAB PO ×2 (08:56→21:00)
[2019-01-27] MEDS: LACTULOSE 30ML CUP PO ×2 (08:59→21:00)
[2019-01-27] MEDS: DOCUSATE SODIUM 100 MG CAP PO (08:59)
[2019-01-27] MEDS: LINAGLIPTIN 5 MG TABLET PO (09:00)
[2019-01-27] MEDS: HEPARIN 5,000 UNIT/1 ML VIAL SC ×2 (09:00→22:01)
[2019-01-27] MEDS: ATENOLOL 50 MG TAB PO (09:00)
[2019-01-27] MEDS: DORZOLAMIDE/TIMOLOL/PF 0.2 ML DROPERETTE BOTH EYES ×2 (09:00→21:00)
[2019-01-27] MEDS: ACCU-CHEK XX (09:00)
[2019-01-27] MEDS: LIDOCAINE 1% (MDV) 20 ML INJ INJ (09:38)
[2019-01-27] MEDS: ALBUMIN HUMAN 25% 100 ML IV (11:05)
[2019-01-27] MEDS: LEVOFLOXACIN 250 MG TAB PO ×2 (15:42→15:44)
[2019-01-27] MEDS ORDERED: HEPARIN 5,000 UNIT/1 ML VIAL SC (21:00)
[2019-01-28] MEDS: morphine 4 MG/ML VIAL IV ×2 (01:17→06:18)
[2019-01-28] MEDS: BISACODYL (EC) 5 MG TAB PO (05:04)
[2019-01-28] MEDS: HYDROmorphONE 0.5 MG/0.5 ML SYG IV ×3 (05:06→13:44)
[2019-01-28 05:36] LABS: ADD MAN DIFF? NO
[2019-01-28 05:46] LABS: BASOPHILS % 0.3 % (0.0-2.0); EOSINOPHILS # 0.2 10^3/ul (0.0-0.5); EOSINOPHILS % 2.3 % (0.0-7.0); HEMATOCRIT 25.2 % (42.0-52.0); HEMOGLOBIN 7.8 g/dl (14.0-18.0); LYMPHOCYTES # 1.6 10^3/ul (0.8-2.9); LYMPHOCYTES % 17.2 % (15.0-51.0); MEAN CORPUSCULAR VOLUME 93.7 fl (82.0-101.0); MEAN PLATELET VOLUME 8.9 fl (7.4-10.4); MONOCYTE # 0.8 10^3/ul (0.3-0.9); MONOCYTES % 8.4 % (0.0-11.0); NEUTROPHIL # 6.6 10^3/ul (1.6-7.5); NEUTROPHILS % 71.1 % (39.0-77.0); PLATELET COUNT 340 10^3/UL (140-415); RED BLOOD COUNT 2.69 10^6/ul (4.70-6.10); RED CELL DISTRIBUTION WIDTH 13.5 % (11.5-14.5)
[2019-01-28 05:46] LABS: WHITE BLOOD COUNT 9.2 10^3/ul (4.8-10.8)
[2019-01-28 06:04] LABS: ANION GAP 14 (5-13); BLOOD UREA NITROGEN 70 mg/dl (7-20); CALCIUM 10.3 mg/dl (8.4-10.2); CARBON DIOXIDE 32 mmol/L (21-31); CHLORIDE 94 mmol/L (97-110); CREATININE 5.51 mg/dl (0.61-1.24); Estimated GFR 11 mL/min (>60); GLUCOSE 144 mg/dl (70-220); POTASSIUM 5.3 mmol/L (3.5-5.1); SODIUM 140 mmol/L (135-144)
[2019-01-28] MEDS: SEVELAMER CARBONATE 0.8 GM PKT PO ×4 (07:51→21:18)
[2019-01-28] MEDS: DOCUSATE SODIUM 100 MG CAP PO (08:09)
[2019-01-28] MEDS: NIFEdipine (XL) 30 MG TAB PO ×2 (08:09→21:00)
[2019-01-28] MEDS: ATENOLOL 50 MG TAB PO (08:09)
[2019-01-28] MEDS: LACTULOSE 30ML CUP PO ×2 (08:09→21:00)
[2019-01-28] MEDS: DORZOLAMIDE/TIMOLOL/PF 0.2 ML DROPERETTE BOTH EYES ×2 (08:09→21:00)
[2019-01-28] MEDS: LINAGLIPTIN 5 MG TABLET PO (08:10)
[2019-01-28] MEDS: HEPARIN 5,000 UNIT/1 ML VIAL SC ×2 (08:10→21:18)
[2019-01-28] MEDS: ACCU-CHEK XX (08:10)
[2019-01-28] MEDS: morphine 2 MG INJ IV ×2 (18:42→22:57)
[2019-01-29] MEDS: morphine 2 MG INJ IV ×6 (03:44→22:58)
[2019-01-29 06:40] LABS: VANCOMYCIN,RANDOM 17.2 ug/ml
[2019-01-29] MEDS: SEVELAMER CARBONATE 0.8 GM PKT PO ×4 (08:00→20:25)
[2019-01-29] MEDS: NIFEdipine (XL) 30 MG TAB PO ×2 (09:00→20:25)
[2019-01-29] MEDS: LACTULOSE 30ML CUP PO ×2 (09:00→20:24)
[2019-01-29] MEDS: DORZOLAMIDE/TIMOLOL/PF 0.2 ML DROPERETTE BOTH EYES ×2 (09:00→20:24)
[2019-01-29] MEDS: LINAGLIPTIN 5 MG TABLET PO (09:00)
[2019-01-29] MEDS: HEPARIN 5,000 UNIT/1 ML VIAL SC ×2 (09:00→20:26)
[2019-01-29] MEDS: ATENOLOL 50 MG TAB PO (09:00)
[2019-01-29] MEDS: DOCUSATE SODIUM 100 MG CAP PO (09:00)
[2019-01-29] MEDS: ACCU-CHEK XX (09:00)
[2019-01-29] MEDS: LEVOFLOXACIN 250 MG TAB PO (17:33)
[2019-01-30] MEDS: morphine 4 MG/ML VIAL IV ×6 (02:07→18:35)
[2019-01-30] MEDS: ACETAMINOPHEN 325 MG TAB PO ×3 (03:58→20:50)
[2019-01-30] MEDS: SEVELAMER CARBONATE 0.8 GM PKT PO ×4 (08:00→20:57)
[2019-01-30] MEDS: ATENOLOL 50 MG TAB PO (08:31)
[2019-01-30] MEDS: NIFEdipine (XL) 30 MG TAB PO ×2 (08:31→20:57)
[2019-01-30] MEDS: ACCU-CHEK XX (08:32)
[2019-01-30] MEDS: DORZOLAMIDE/TIMOLOL/PF 0.2 ML DROPERETTE BOTH EYES ×2 (08:41→20:57)
[2019-01-30] MEDS: LACTULOSE 30ML CUP PO ×2 (08:42→20:57)
[2019-01-30] MEDS: DOCUSATE SODIUM 100 MG CAP PO (08:42)
[2019-01-30] MEDS: HEPARIN 5,000 UNIT/1 ML VIAL SC ×2 (08:42→20:57)
[2019-01-30] MEDS: LINAGLIPTIN 5 MG TABLET PO (08:42)
[2019-01-30] MEDS: LIDOCAINE 1% (MDV) 20 ML INJ INJ (16:42)
[2019-01-30] MEDS: VANCOMYCIN 1 GM 250 ML IVPB (20:50)
[2019-01-31] MEDS: morphine 4 MG/ML VIAL IV ×7 (00:18→20:48)
[2019-01-31] MEDS: ACETAMINOPHEN 325 MG TAB PO ×2 (02:10→16:17)
[2019-01-31] MEDS: morphine 2 MG INJ IV (05:02)
[2019-01-31] MEDS: SEVELAMER CARBONATE 0.8 GM PKT PO ×4 (08:00→20:21)
[2019-01-31] MEDS: DORZOLAMIDE/TIMOLOL/PF 0.2 ML DROPERETTE BOTH EYES ×2 (08:45→20:24)
[2019-01-31] MEDS: NIFEdipine (XL) 30 MG TAB PO ×2 (08:46→20:46)
[2019-01-31] MEDS: LACTULOSE 30ML CUP PO ×3 (08:46→20:21)
[2019-01-31] MEDS: DOCUSATE SODIUM 100 MG CAP PO (08:46)
[2019-01-31] MEDS: ATENOLOL 50 MG TAB PO (08:47)
[2019-01-31] MEDS: LINAGLIPTIN 5 MG TABLET PO (08:47)
[2019-01-31] MEDS: HEPARIN 5,000 UNIT/1 ML VIAL SC ×2 (08:47→20:24)
[2019-01-31] MEDS: ACCU-CHEK XX (08:48)
[2019-01-31] MEDS: BISACODYL (EC) 5 MG TAB PO (12:14)
[2019-01-31] MEDS: LEVOFLOXACIN 250 MG TAB PO (16:17)
[2019-02-01] MEDS: morphine 4 MG/ML VIAL IV ×3 (00:55→09:23)
[2019-02-01] MEDS: SEVELAMER CARBONATE 0.8 GM PKT PO ×4 (08:00→21:46)
[2019-02-01] MEDS: DOCUSATE SODIUM 100 MG CAP PO (09:00)
[2019-02-01] MEDS: HEPARIN 5,000 UNIT/1 ML VIAL SC ×2 (09:00→21:46)
[2019-02-01] MEDS: ACCU-CHEK XX (09:00)
[2019-02-01] MEDS: LACTULOSE 30ML CUP PO ×2 (09:00→21:00)
[2019-02-01] MEDS: LINAGLIPTIN 5 MG TABLET PO (09:00)
[2019-02-01] MEDS: ATENOLOL 50 MG TAB PO (09:00)
[2019-02-01] MEDS: NIFEdipine (XL) 30 MG TAB PO ×2 (09:00→21:00)
[2019-02-01] MEDS: DORZOLAMIDE/TIMOLOL/PF 0.2 ML DROPERETTE BOTH EYES ×2 (09:00→21:00)
[2019-02-01] MEDS: METHADONE (1 MG/ML 5 ML PO UD SYG) PO ×2 (14:30→21:43)
[2019-02-01] MEDS: CLONIDINE 0.2 MG/24 HR PATCH TRANSDERM (21:49)
[2019-02-02] MEDS: LACTULOSE 30ML CUP PO ×3 (00:10→21:00)
[2019-02-02] MEDS: ACETAMINOPHEN 325 MG TAB PO ×3 (00:15→12:13)
[2019-02-02] MEDS: SEVELAMER CARBONATE 0.8 GM PKT PO ×4 (08:00→21:00)
[2019-02-02] MEDS: ATENOLOL 50 MG TAB PO (09:00)
[2019-02-02] MEDS: ACCU-CHEK XX (09:00)
[2019-02-02] MEDS: LINAGLIPTIN 5 MG TABLET PO (09:00)
[2019-02-02] MEDS: NIFEdipine (XL) 30 MG TAB PO ×2 (09:00→21:00)
[2019-02-02] MEDS: HEPARIN 5,000 UNIT/1 ML VIAL SC ×2 (09:00→21:08)
[2019-02-02] MEDS: DOCUSATE SODIUM 100 MG CAP PO (09:00)
[2019-02-02] MEDS: DORZOLAMIDE/TIMOLOL/PF 0.2 ML DROPERETTE BOTH EYES ×2 (09:00→21:00)
[2019-02-02] MEDS: [UNRECOGNIZED DRUG - REMARK] XX ×2 (09:30→17:00)
[2019-02-02] MEDS: METHADONE (1 MG/ML 5 ML PO UD SYG) PO ×2 (10:18→21:00)
[2019-02-02] MEDS: ONDANSETRON 4 MG TAB PO (11:38)
[2019-02-02] MEDS: LEVOFLOXACIN 250 MG TAB PO (16:00)
[2019-02-03] MEDS: [UNRECOGNIZED DRUG - REMARK] XX ×3 (01:30→16:50)
[2019-02-03] MEDS: SEVELAMER CARBONATE 0.8 GM PKT PO ×4 (02:00→21:00)
[2019-02-03] MEDS: NIFEdipine (XL) 30 MG TAB PO ×2 (09:00→21:00)
[2019-02-03] MEDS: ATENOLOL 50 MG TAB PO (09:00)
[2019-02-03] MEDS: ACCU-CHEK XX (09:00)
[2019-02-03] MEDS: LIDOCAINE 1% (MDV) 20 ML INJ INJ (09:52)
[2019-02-03] MEDS: ALBUMIN HUMAN 25% 100 ML IV (10:51)
[2019-02-03] MEDS: METHADONE (1 MG/ML 5 ML PO UD SYG) PO ×2 (11:13→21:00)
[2019-02-03] MEDS: ACETAMINOPHEN 325 MG TAB PO ×2 (11:16→21:16)
[2019-02-03] MEDS: LACTULOSE 30ML CUP PO ×2 (14:01→21:00)
[2019-02-03] MEDS: DOCUSATE SODIUM 100 MG CAP PO (14:02)
[2019-02-03] MEDS: LINAGLIPTIN 5 MG TABLET PO (14:02)
[2019-02-03] MEDS: DORZOLAMIDE/TIMOLOL/PF 0.2 ML DROPERETTE BOTH EYES ×2 (14:03→21:00)
[2019-02-03] MEDS: HEPARIN 5,000 UNIT/1 ML VIAL SC ×2 (14:05→21:00)
[2019-02-04] MEDS: [UNRECOGNIZED DRUG - REMARK] XX ×3 (01:30→17:18)
[2019-02-04] MEDS: ACETAMINOPHEN 325 MG TAB PO ×4 (03:51→20:25)
[2019-02-04] MEDS: METHADONE (1 MG/ML 5 ML PO UD SYG) PO ×3 (08:56→23:31)
[2019-02-04] MEDS: NIFEdipine (XL) 30 MG TAB PO (08:56)
[2019-02-04] MEDS: HEPARIN 5,000 UNIT/1 ML VIAL SC ×2 (08:57→20:30)
[2019-02-04] MEDS: ACCU-CHEK XX (08:57)
[2019-02-04] MEDS: ATENOLOL 50 MG TAB PO (08:57)
[2019-02-04 12:39] LABS: HEPATITIS B SURFACE ANTIGEN NEGATIVE (NEGATIVE)
[2019-02-04] MEDS: LEVOFLOXACIN 250 MG TAB PO (16:00)
[2019-02-04] MEDS: VANCOMYCIN 1 GM 250 ML IVPB (16:00)
[2019-02-04] MEDS: NA POLYST SULFON 15 GM/60 ML BTL PO (17:18)
[2019-02-04] MEDS ORDERED: SODIUM POLYSTYRENE 15 GM KIT (POWDER + SORBITOL) PO (17:30)
[2019-02-04] MEDS: SEVELAMER CARBONATE 0.8 GM PKT PO (20:29)
[2019-02-05] MEDS: [UNRECOGNIZED DRUG - REMARK] XX ×2 (01:30→09:21)
[2019-02-05] MEDS: ACETAMINOPHEN 325 MG TAB PO ×4 (04:06→23:49)
[2019-02-05] MEDS: LINAGLIPTIN 5 MG TABLET PO (09:00)
[2019-02-05] MEDS: NIFEdipine (XL) 30 MG TAB PO (09:00)
[2019-02-05] MEDS: METHADONE (1 MG/ML 5 ML PO UD SYG) PO ×3 (09:00→22:31)
[2019-02-05] MEDS: ACCU-CHEK XX (09:00)
[2019-02-05] MEDS: ATENOLOL 50 MG TAB PO (09:00)
[2019-02-05] MEDS: HEPARIN 5,000 UNIT/1 ML VIAL SC ×2 (09:00→21:00)
[2019-02-05] MEDS: LIDOCAINE 1% (MDV) 20 ML INJ INJ (16:07)
[2019-02-05] MEDS: LACTULOSE 30ML CUP PO (22:31)
[2019-02-05] MEDS: SEVELAMER CARBONATE 0.8 GM PKT PO (22:31)
[2019-02-05] MEDS: VANCOMYCIN 1 GM 250 ML IVPB (22:55)
[2019-02-06] MEDS: ACETAMINOPHEN 325 MG TAB PO ×3 (04:59→20:45)
[2019-02-06] MEDS: LINAGLIPTIN 5 MG TABLET PO (08:35)
[2019-02-06] MEDS: ATENOLOL 50 MG TAB PO (08:36)
[2019-02-06] MEDS: NIFEdipine (XL) 30 MG TAB PO (08:36)
[2019-02-06] MEDS: METHADONE (1 MG/ML 5 ML PO UD SYG) PO ×2 (08:37→20:44)
[2019-02-06] MEDS: HEPARIN 5,000 UNIT/1 ML VIAL SC ×2 (08:37→20:48)
[2019-02-06] MEDS: INSULIN ASPART [NOVOLOG] 3 ML PEN SC ×3 (12:00→20:56)
[2019-02-06 15:05] LABS: ADD MAN DIFF? NO
[2019-02-06 15:07] LABS: BASOPHILS % 0.3 % (0.0-2.0); EOSINOPHILS # 0.1 10^3/ul (0.0-0.5); EOSINOPHILS % 1.1 % (0.0-7.0); HEMATOCRIT 24.7 % (42.0-52.0); HEMOGLOBIN 7.7 g/dl (14.0-18.0); LYMPHOCYTES # 1.1 10^3/ul (0.8-2.9); LYMPHOCYTES % 10.6 % (15.0-51.0); MEAN CORPUSCULAR HEMOGLOBIN 29.1 pg (29.0-33.0); MEAN CORPUSCULAR HGB CONC 31.2 g/dl (32.0-37.0); MEAN CORPUSCULAR VOLUME 93.2 fl (82.0-101.0); MEAN PLATELET VOLUME 8.6 fl (7.4-10.4); MONOCYTE # 0.6 10^3/ul (0.3-0.9); MONOCYTES % 6.1 % (0.0-11.0); NEUTROPHIL # 8.5 10^3/ul (1.6-7.5); NEUTROPHILS % 81.2 % (39.0-77.0); PLATELET COUNT 358 10^3/UL (140-415); RED BLOOD COUNT 2.65 10^6/ul (4.70-6.10); RED CELL DISTRIBUTION WIDTH 13.9 % (11.5-14.5)
[2019-02-06 15:07] LABS: WHITE BLOOD COUNT 10.5 10^3/ul (4.8-10.8)
[2019-02-06 15:42] LABS: ANION GAP 15 (5-13); BLOOD UREA NITROGEN 74 mg/dl (7-20); CALCIUM 10.5 mg/dl (8.4-10.2); CARBON DIOXIDE 28 mmol/L (21-31); CHLORIDE 94 mmol/L (97-110); CREATININE 4.76 mg/dl (0.61-1.24); Estimated GFR 13 mL/min (>60); GLUCOSE 233 mg/dl (70-220); POTASSIUM 5.8 mmol/L (3.5-5.1); SODIUM 137 mmol/L (135-144)
[2019-02-06] MEDS: LEVOFLOXACIN 250 MG TAB PO (17:22)
[2019-02-06] MEDS: ACCU-CHEK XX (17:25)
[2019-02-06] MEDS: SEVELAMER CARBONATE 0.8 GM PKT PO (20:46)
[2019-02-07] MEDS: ACETAMINOPHEN 325 MG TAB PO ×3 (00:49→12:20)
[2019-02-07] MEDS: ACCU-CHEK XX ×4 (02:05→17:00)
[2019-02-07] MEDS: SODIUM POLYSTYRENE 15 GM KIT (POWDER + SORBITOL) PO (02:36)
[2019-02-07 06:43] LABS: ADD MAN DIFF? NO
[2019-02-07 06:46] LABS: WHITE BLOOD COUNT 10.1 10^3/ul (4.8-10.8)
[2019-02-07 06:46] LABS: BASOPHILS % 0.4 % (0.0-2.0); EOSINOPHILS # 0.2 10^3/ul (0.0-0.5); EOSINOPHILS % 2.1 % (0.0-7.0); HEMATOCRIT 24.8 % (42.0-52.0); HEMOGLOBIN 7.6 g/dl (14.0-18.0); LYMPHOCYTES # 1.3 10^3/ul (0.8-2.9); LYMPHOCYTES % 12.7 % (15.0-51.0); MEAN CORPUSCULAR HEMOGLOBIN 28.3 pg (29.0-33.0); MEAN CORPUSCULAR HGB CONC 30.6 g/dl (32.0-37.0); MEAN CORPUSCULAR VOLUME 92.2 fl (82.0-101.0); MEAN PLATELET VOLUME 8.7 fl (7.4-10.4); MONOCYTE # 0.8 10^3/ul (0.3-0.9); MONOCYTES % 7.9 % (0.0-11.0); NEUTROPHIL # 7.7 10^3/ul (1.6-7.5); NEUTROPHILS % 76.4 % (39.0-77.0); PLATELET COUNT 344 10^3/UL (140-415); RED BLOOD COUNT 2.69 10^6/ul (4.70-6.10)
[2019-02-07 07:04] LABS: ANION GAP 18 (5-13); BLOOD UREA NITROGEN 88 mg/dl (7-20); CALCIUM 10.4 mg/dl (8.4-10.2); CARBON DIOXIDE 27 mmol/L (21-31); CHLORIDE 95 mmol/L (97-110); CREATININE 6.04 mg/dl (0.61-1.24); Estimated GFR 10 mL/min (>60); GLUCOSE 172 mg/dl (70-220); POTASSIUM 5.5 mmol/L (3.5-5.1); SODIUM 140 mmol/L (135-144)
[2019-02-07] MEDS: INSULIN ASPART [NOVOLOG] 3 ML PEN SC ×5 (08:25→23:45)
[2019-02-07] MEDS: ATENOLOL 50 MG TAB PO (08:26)
[2019-02-07] MEDS: METHADONE (1 MG/ML 5 ML PO UD SYG) PO (08:27)
[2019-02-07] MEDS: NIFEdipine (XL) 30 MG TAB PO (08:27)
[2019-02-07] MEDS: LINAGLIPTIN 5 MG TABLET PO (08:27)
[2019-02-07] MEDS: HEPARIN 5,000 UNIT/1 ML VIAL SC ×2 (08:29→21:00)
[2019-02-07] MEDS ORDERED: LIDOCAINE 1% (MDV) 20 ML INJ (15:17)
[2019-02-07] MEDS ORDERED: ALBUMIN HUMAN 25% 100 ML (16:42)
[2019-02-07] MEDS: LIDOCAINE 1% (MDV) 20 ML INJ SC (17:31)
[2019-02-07] MEDS: ALBUMIN HUMAN 25% 100 ML IV (17:40)
[2019-02-07] MEDS ORDERED: HYDROmorphONE 0.5 MG/0.5 ML SYG IV (18:00)
[2019-02-07] MEDS: SOD CHLORIDE 0.9% 1,000 ML IV (20:30)
[2019-02-07] MEDS: HYDROmorphONE 2 MG TAB PO (20:39)
[2019-02-07] MEDS: SEVELAMER CARBONATE 0.8 GM PKT PO (21:00)
[2019-02-07 21:01] LABS: ADD MAN DIFF? NO
[2019-02-07 21:03] LABS: BASOPHILS % 0.3 % (0.0-2.0); EOSINOPHILS # 0.1 10^3/ul (0.0-0.5); EOSINOPHILS % 0.9 % (0.0-7.0); HEMATOCRIT 26.1 % (42.0-52.0); HEMOGLOBIN 8.1 g/dl (14.0-18.0); LYMPHOCYTES # 0.8 10^3/ul (0.8-2.9); LYMPHOCYTES % 7.7 % (15.0-51.0); MEAN CORPUSCULAR HEMOGLOBIN 28.5 pg (29.0-33.0); MEAN CORPUSCULAR VOLUME 91.9 fl (82.0-101.0); MEAN PLATELET VOLUME 8.5 fl (7.4-10.4); MONOCYTE # 0.7 10^3/ul (0.3-0.9); MONOCYTES % 6.3 % (0.0-11.0); NEUTROPHIL # 8.7 10^3/ul (1.6-7.5); NEUTROPHILS % 84.4 % (39.0-77.0); PLATELET COUNT 367 10^3/UL (140-415); RED BLOOD COUNT 2.84 10^6/ul (4.70-6.10); RED CELL DISTRIBUTION WIDTH 14.2 % (11.5-14.5)
[2019-02-07 21:03] LABS: WHITE BLOOD COUNT 10.3 10^3/ul (4.8-10.8)
[2019-02-07 21:22] LABS: ALANINE AMINOTRANSFERASE 8 IU/L (13-69); ALBUMIN 4.5 g/dl (3.3-4.9); ALBUMIN/GLOBULIN RATIO 0.97; ALKALINE PHOSPHATASE 180 IU/L (42-121); ANION GAP 14 (5-13); ASPARTATE AMINO TRANSFERASE 21 IU/L (15-46); BILIRUBIN,INDIRECT 0.2 mg/dl (0-1.1); BILIRUBIN,TOTAL 0.2 mg/dl (0.2-1.3); BLOOD UREA NITROGEN 37 mg/dl (7-20); CALCIUM 10.5 mg/dl (8.4-10.2); CARBON DIOXIDE 34 mmol/L (21-31); CHLORIDE 95 mmol/L (97-110); CREATININE 3.14 mg/dl (0.61-1.24); Estimated GFR 20 mL/min (>60); GLUCOSE 200 mg/dl (70-220); POTASSIUM 4.2 mmol/L (3.5-5.1); SODIUM 143 mmol/L (135-144); TOTAL PROTEIN 9.1 g/dl (6.1-8.1)
[2019-02-07 21:22] LABS: AMMONIA < 9 umol/l (9-30)
[2019-02-07 21:23] LABS: CHOLESTEROL 119 mg/dl (100-200); LACTIC ACID 1.4 mmol/L (0.5-2.0)
[2019-02-07 21:23] LABS: CHOL/HDL RATIO 5.6 RATIO; HDL CHOLESTEROL 21 mg/dl (30-78); LDL CHOLESTEROL,CALCULATED 48 mg/dl; TRIGLYCERIDES 250 mg/dl (0-149)
[2019-02-08] MEDS: HYDROmorphONE 2 MG TAB PO (00:10)
[2019-02-08] MEDS: HYDROmorphONE 1 MG/ML SYG IV ×4 (01:52→16:14)
[2019-02-08] MEDS: ACCU-CHEK XX ×4 (02:00→17:06)
[2019-02-08 06:11] LABS: ADD MAN DIFF? NO
[2019-02-08 06:13] LABS: BASOPHILS % 0.3 % (0.0-2.0); EOSINOPHILS # 0.1 10^3/ul (0.0-0.5); EOSINOPHILS % 0.6 % (0.0-7.0); HEMATOCRIT 25.5 % (42.0-52.0); LYMPHOCYTES # 1.1 10^3/ul (0.8-2.9); LYMPHOCYTES % 11.8 % (15.0-51.0); MEAN CORPUSCULAR HGB CONC 31.4 g/dl (32.0-37.0); MEAN CORPUSCULAR VOLUME 92.4 fl (82.0-101.0); MEAN PLATELET VOLUME 8.7 fl (7.4-10.4); MONOCYTE # 0.7 10^3/ul (0.3-0.9); MONOCYTES % 7.8 % (0.0-11.0); NEUTROPHIL # 7.5 10^3/ul (1.6-7.5); PLATELET COUNT 358 10^3/UL (140-415); RED BLOOD COUNT 2.76 10^6/ul (4.70-6.10); RED CELL DISTRIBUTION WIDTH 14.3 % (11.5-14.5)
[2019-02-08 06:13] LABS: WHITE BLOOD COUNT 9.5 10^3/ul (4.8-10.8)
[2019-02-08 06:41] LABS: ANION GAP 16 (5-13); BLOOD UREA NITROGEN 49 mg/dl (7-20); CALCIUM 10.3 mg/dl (8.4-10.2); CARBON DIOXIDE 32 mmol/L (21-31); CHLORIDE 96 mmol/L (97-110); CREATININE 4.04 mg/dl (0.61-1.24); Estimated GFR 15 mL/min (>60); GLUCOSE 178 mg/dl (70-220); POTASSIUM 4.3 mmol/L (3.5-5.1); SODIUM 144 mmol/L (135-144)
[2019-02-08] MEDS: INSULIN ASPART [NOVOLOG] 3 ML PEN SC ×4 (08:44→20:30)
[2019-02-08] MEDS: HEPARIN 5,000 UNIT/1 ML VIAL SC ×2 (08:45→21:33)
[2019-02-08] MEDS: ATENOLOL 50 MG TAB PO (08:48)
[2019-02-08] MEDS: LINAGLIPTIN 5 MG TABLET PO (08:49)
[2019-02-08] MEDS: NIFEdipine (XL) 30 MG TAB PO (08:49)
[2019-02-08] MEDS: LEVOFLOXACIN 250 MG TAB PO (16:14)
[2019-02-08] MEDS: SOD CHLORIDE 0.9% 250 ML IV (20:26)
[2019-02-08] MEDS: CLONIDINE 0.2 MG/24 HR PATCH TRANSDERM (20:31)
[2019-02-08] MEDS: SEVELAMER CARBONATE 0.8 GM PKT PO (21:31)
[2019-02-08] MEDS: HYDROmorphONE 0.5 MG/0.5 ML SYG IV (23:10)
[2019-02-09] MEDS: ACCU-CHEK XX ×4 (02:00→17:08)
[2019-02-09] MEDS: HYDROmorphONE 0.5 MG/0.5 ML SYG IV ×5 (03:28→20:26)
[2019-02-09] MEDS: INSULIN ASPART [NOVOLOG] 3 ML PEN SC ×4 (08:15→20:25)
[2019-02-09] MEDS: LINAGLIPTIN 5 MG TABLET PO (08:17)
[2019-02-09] MEDS: NIFEdipine (XL) 30 MG TAB PO (08:17)
[2019-02-09] MEDS: ATENOLOL 50 MG TAB PO (08:18)
[2019-02-09] MEDS: HEPARIN 5,000 UNIT/1 ML VIAL SC ×2 (08:19→20:24)
[2019-02-09] MEDS: HYDROCORTISONE 1% 28.35 GM OINT TOP ×2 (15:59→20:26)
[2019-02-09] MEDS ORDERED: LIDOCAINE 2% (MDV) 20 ML INJ INJ (16:30)
[2019-02-09] MEDS: SEVELAMER CARBONATE 0.8 GM PKT PO (20:23)
[2019-02-10] MEDS: HYDROmorphONE 0.5 MG/0.5 ML SYG IV ×5 (00:34→21:55)
[2019-02-10] MEDS: ACCU-CHEK XX ×4 (01:34→18:09)
[2019-02-10] MEDS: ACETAMINOPHEN 325 MG TAB PO ×5 (06:05→23:50)
[2019-02-10] MEDS: HYDROCORTISONE 1% 28.35 GM OINT TOP ×3 (08:26→20:31)
[2019-02-10] MEDS: NIFEdipine (XL) 30 MG TAB PO (08:27)
[2019-02-10] MEDS: LINAGLIPTIN 5 MG TABLET PO (08:27)
[2019-02-10] MEDS: ATENOLOL 50 MG TAB PO (08:27)
[2019-02-10] MEDS: HEPARIN 5,000 UNIT/1 ML VIAL SC ×2 (08:29→20:29)
[2019-02-10] MEDS: INSULIN ASPART [NOVOLOG] 3 ML PEN SC ×4 (08:32→20:31)
[2019-02-10] MEDS: VANCOMYCIN 1 GM 250 ML IVPB (14:59)
[2019-02-10] MEDS: LEVOFLOXACIN 250 MG TAB PO (16:22)
[2019-02-10] MEDS: SEVELAMER CARBONATE 0.8 GM PKT PO (20:30)
[2019-02-11] MEDS: ACCU-CHEK XX ×4 (02:00→17:30)
[2019-02-11] MEDS: HYDROmorphONE 0.5 MG/0.5 ML SYG IV ×5 (02:21→21:01)
[2019-02-11] MEDS: INSULIN ASPART [NOVOLOG] 3 ML PEN SC ×4 (08:00→21:00)
[2019-02-11] MEDS: HEPARIN 5,000 UNIT/1 ML VIAL SC ×2 (09:00→21:01)
[2019-02-11] MEDS: ATENOLOL 50 MG TAB PO (09:00)
[2019-02-11] MEDS: LINAGLIPTIN 5 MG TABLET PO (09:00)
[2019-02-11] MEDS: NIFEdipine (XL) 30 MG TAB PO (09:00)
[2019-02-11] MEDS: HYDROCORTISONE 1% 28.35 GM OINT TOP ×3 (09:00→21:00)
[2019-02-11] MEDS: LIDOCAINE 1% (MDV) 20 ML INJ INJ (10:00)
[2019-02-11] MEDS: VANCOMYCIN 1 GM 250 ML IVPB (11:56)
[2019-02-11] MEDS: ACETAMINOPHEN 325 MG TAB PO (13:13)
[2019-02-11] MEDS: SEVELAMER CARBONATE 0.8 GM PKT PO (21:00)
[2019-02-12] MEDS: HYDROmorphONE 0.5 MG/0.5 ML SYG IV ×6 (01:04→22:46)
[2019-02-12] MEDS: ACCU-CHEK XX ×4 (02:00→17:30)
[2019-02-12] MEDS: INSULIN ASPART [NOVOLOG] 3 ML PEN SC ×4 (08:00→20:50)
[2019-02-12] MEDS: ATENOLOL 50 MG TAB PO ×2 (08:30→08:36)
[2019-02-12] MEDS: LINAGLIPTIN 5 MG TABLET PO ×2 (08:31→08:36)
[2019-02-12] MEDS: NIFEdipine (XL) 30 MG TAB PO ×2 (08:31→08:36)
[2019-02-12] MEDS: HYDROCORTISONE 1% 28.35 GM OINT TOP ×4 (08:32→20:52)
[2019-02-12] MEDS: HEPARIN 5,000 UNIT/1 ML VIAL SC ×2 (08:33→20:48)
[2019-02-12] MEDS: LEVOFLOXACIN 250 MG TAB PO (16:00)
[2019-02-12] MEDS: SEVELAMER CARBONATE 0.8 GM PKT PO (20:50)
[2019-02-13] MEDS: LACTULOSE 30ML CUP PO (01:41)
[2019-02-13] MEDS: ACCU-CHEK XX ×4 (02:00→17:14)
[2019-02-13] MEDS: HYDROmorphONE 0.5 MG/0.5 ML SYG IV ×6 (02:50→22:49)
[2019-02-13] MEDS: INSULIN ASPART [NOVOLOG] 3 ML PEN SC ×4 (08:00→20:59)
[2019-02-13] MEDS: LINAGLIPTIN 5 MG TABLET PO (08:34)
[2019-02-13] MEDS: ATENOLOL 50 MG TAB PO (08:35)
[2019-02-13] MEDS: NIFEdipine (XL) 30 MG TAB PO (08:35)
[2019-02-13] MEDS: HEPARIN 5,000 UNIT/1 ML VIAL SC ×2 (08:37→21:00)
[2019-02-13] MEDS: HYDROCORTISONE 1% 28.35 GM OINT TOP ×3 (08:41→21:00)
[2019-02-13] MEDS ORDERED: VANCOMYCIN IV PER PHARMACY XX (12:00)
[2019-02-13] MEDS: SEVELAMER CARBONATE 0.8 GM PKT PO (21:00)
[2019-02-14] MEDS: ACCU-CHEK XX ×4 (02:00→17:30)
[2019-02-14] MEDS: HYDROmorphONE 0.5 MG/0.5 ML SYG IV ×3 (03:26→14:10)
[2019-02-14] MEDS: LINAGLIPTIN 5 MG TABLET PO (09:00)
[2019-02-14] MEDS: HEPARIN 5,000 UNIT/1 ML VIAL SC ×2 (09:00→20:20)
[2019-02-14] MEDS: ATENOLOL 50 MG TAB PO (09:00)
[2019-02-14] MEDS: NIFEdipine (XL) 30 MG TAB PO (09:00)
[2019-02-14] MEDS: HYDROCORTISONE 1% 28.35 GM OINT TOP ×3 (09:00→20:40)
[2019-02-14 09:03] LABS: VANCOMYCIN,RANDOM 14.8 ug/ml
[2019-02-14] MEDS: LIDOCAINE 1% (MDV) 20 ML INJ INJ (09:08)
[2019-02-14] MEDS: INSULIN ASPART [NOVOLOG] 3 ML PEN SC ×4 (09:11→20:20)
[2019-02-14 09:25] LABS: ADD MAN DIFF? NO
[2019-02-14 09:29] LABS: ABNORMAL IP MESSAGE 1; BASOPHILS % 0.2 % (0.0-2.0); EOSINOPHILS # 0.3 10^3/ul (0.0-0.5); EOSINOPHILS % 3.4 % (0.0-7.0); HEMATOCRIT 21.7 % (42.0-52.0); LYMPHOCYTES # 1.2 10^3/ul (0.8-2.9); LYMPHOCYTES % 14.8 % (15.0-51.0); MEAN CORPUSCULAR HEMOGLOBIN 27.9 pg (29.0-33.0); MEAN CORPUSCULAR HGB CONC 31.8 g/dl (32.0-37.0); MEAN CORPUSCULAR VOLUME 87.9 fl (82.0-101.0); MEAN PLATELET VOLUME 8.6 fl (7.4-10.4); MONOCYTE # 0.7 10^3/ul (0.3-0.9); MONOCYTES % 9.2 % (0.0-11.0); NEUTROPHIL # 5.8 10^3/ul (1.6-7.5); NEUTROPHILS % 71.8 % (39.0-77.0); PLATELET COUNT 299 10^3/UL (140-415); POSITIVE DIFF @See below; RED BLOOD COUNT 2.47 10^6/ul (4.70-6.10); RED CELL DISTRIBUTION WIDTH 14.2 % (11.5-14.5)
[2019-02-14 09:29] LABS: WHITE BLOOD COUNT 8.1 10^3/ul (4.8-10.8)
[2019-02-14 09:36] LABS: HEMOGLOBIN 6.9 g/dl (14.0-18.0); PATH REVIEW? YES
[2019-02-14 09:55] LABS: ANION GAP 16 (5-13); BLOOD UREA NITROGEN 100 mg/dl (7-20); CALCIUM 9.8 mg/dl (8.4-10.2); CARBON DIOXIDE 25 mmol/L (21-31); CHLORIDE 96 mmol/L (97-110); CREATININE 6.86 mg/dl (0.61-1.24); Estimated GFR 8 mL/min (>60); GLUCOSE 136 mg/dl (70-220); POTASSIUM 5.1 mmol/L (3.5-5.1); SODIUM 137 mmol/L (135-144)
[2019-02-14 10:18] LABS: ANISOCYTOSIS 1+ (0-0); BAND NEUTROPHILS % (M) 1 % (0-4); LYMPHOCYTES #M 1.7 10^3/ul (0.8-2.9); LYMPHOCYTES % (M) 21 % (15-51); MICROCYTOSIS 1+ (0-0); MONOCYTES % (M) 1 % (0-11); PLATELET ESTIMATE NORMAL; POLYCHROMASIA 3+ (0-0); SEG NEUT #M 6.2 10^3/ul (1.6-7.5); SEGMENTED NEUTROPHILS (M) % 77 % (39-77); SMUDGE%M 2 % (0-0)
[2019-02-14] MEDS: ACETAMINOPHEN 325 MG TAB PO ×2 (10:54→16:44)
[2019-02-14 16:19] LABS: IMMEDIATE SPIN CROSSMATCH 1 2
[2019-02-14] MEDS: HYDROmorphONE 1 MG/ML SYG IV ×2 (18:29→23:14)
[2019-02-14] MEDS: SEVELAMER CARBONATE 0.8 GM PKT PO (20:22)
[2019-02-14] MEDS: VANCOMYCIN 1 GM 250 ML IVPB (20:23)
[2019-02-15] MEDS: ACCU-CHEK XX ×3 (01:27→12:30)
[2019-02-15] MEDS: HYDROmorphONE 1 MG/ML SYG IV ×7 (02:29→23:57)
[2019-02-15] MEDS: hydrALAzine 20 MG INJ IV (03:23)
[2019-02-15] MEDS: HEPARIN 5,000 UNIT/1 ML VIAL SC ×2 (08:28→20:40)
[2019-02-15] MEDS: LINAGLIPTIN 5 MG TABLET PO (08:32)
[2019-02-15] MEDS: INSULIN ASPART [NOVOLOG] 3 ML PEN SC ×4 (08:32→20:33)
[2019-02-15] MEDS: NIFEdipine (XL) 30 MG TAB PO (08:33)
[2019-02-15] MEDS: ATENOLOL 50 MG TAB PO (08:38)
[2019-02-15] MEDS: HYDROCORTISONE 1% 28.35 GM OINT TOP ×3 (08:41→20:41)
[2019-02-15 10:09] LABS: ADD MAN DIFF? NO
[2019-02-15 10:10] LABS: BASOPHILS % 0.4 % (0.0-2.0); EOSINOPHILS # 0.2 10^3/ul (0.0-0.5); EOSINOPHILS % 3.2 % (0.0-7.0); HEMATOCRIT 29.6 % (42.0-52.0); HEMOGLOBIN 9.4 g/dl (14.0-18.0); LYMPHOCYTES # 1.2 10^3/ul (0.8-2.9); LYMPHOCYTES % 16.7 % (15.0-51.0); MEAN CORPUSCULAR HEMOGLOBIN 28.9 pg (29.0-33.0); MEAN CORPUSCULAR HGB CONC 31.8 g/dl (32.0-37.0); MEAN CORPUSCULAR VOLUME 91.1 fl (82.0-101.0); MEAN PLATELET VOLUME 8.7 fl (7.4-10.4); MONOCYTE # 0.9 10^3/ul (0.3-0.9); MONOCYTES % 12.9 % (0.0-11.0); NEUTROPHIL # 4.7 10^3/ul (1.6-7.5); NEUTROPHILS % 66.2 % (39.0-77.0); PLATELET COUNT 306 10^3/UL (140-415); RED BLOOD COUNT 3.25 10^6/ul (4.70-6.10)
[2019-02-15 10:10] LABS: WHITE BLOOD COUNT 7.1 10^3/ul (4.8-10.8)
[2019-02-15 10:28] LABS: ANION GAP 13 (5-13); BLOOD UREA NITROGEN 67 mg/dl (7-20); CALCIUM 10.1 mg/dl (8.4-10.2); CARBON DIOXIDE 30 mmol/L (21-31); CHLORIDE 97 mmol/L (97-110); CREATININE 4.86 mg/dl (0.61-1.24); Estimated GFR 12 mL/min (>60); GLUCOSE 173 mg/dl (70-220); POTASSIUM 4.3 mmol/L (3.5-5.1); SODIUM 140 mmol/L (135-144)
[2019-02-15] MEDS: CLONIDINE 0.2 MG/24 HR PATCH TRANSDERM ×2 (20:43→21:09)
[2019-02-15] MEDS: SEVELAMER CARBONATE 0.8 GM PKT PO (20:43)
[2019-02-15] MEDS: ACETAMINOPHEN 325 MG TAB PO (22:47)
[2019-02-16] MEDS: [UNRECOGNIZED DRUG - REMARK] XX ×3 (00:30→16:30)
[2019-02-16] MEDS: ACCU-CHEK XX (02:00)
[2019-02-16] MEDS: HYDROmorphONE 1 MG/ML SYG IV ×7 (03:02→23:06)
[2019-02-16] MEDS: INSULIN ASPART [NOVOLOG] 3 ML PEN SC ×4 (08:00→20:52)
[2019-02-16] MEDS: HEPARIN 5,000 UNIT/1 ML VIAL SC ×2 (08:52→20:51)
[2019-02-16] MEDS: LINAGLIPTIN 5 MG TABLET PO (08:53)
[2019-02-16] MEDS: NIFEdipine (XL) 30 MG TAB PO (08:53)
[2019-02-16] MEDS: ATENOLOL 50 MG TAB PO (08:53)
[2019-02-16] MEDS: HYDROCORTISONE 1% 28.35 GM OINT TOP ×3 (08:58→20:53)
[2019-02-16] MEDS: SEVELAMER CARBONATE 0.8 GM PKT PO (20:49)
[2019-02-17] MEDS: [UNRECOGNIZED DRUG - REMARK] XX ×2 (00:30→08:30)
[2019-02-17] MEDS: HYDROmorphONE 1 MG/ML SYG IV ×7 (01:59→23:21)
[2019-02-17] MEDS: ACCU-CHEK XX ×2 (02:00→22:30)
[2019-02-17] MEDS ORDERED: PHENYLephrine (100 MCG/ML) 10ML SYG (07:00)
[2019-02-17] MEDS ORDERED: SEVOFLURANE 15 MIN (07:00)
[2019-02-17] MEDS: INSULIN ASPART [NOVOLOG] 3 ML PEN SC ×5 (08:00→21:14)
[2019-02-17] MEDS: LIDOCAINE 1% (MDV) 20 ML INJ INJ (08:24)
[2019-02-17 08:37] LABS: ADD MAN DIFF? NO
[2019-02-17 08:43] LABS: BASOPHILS % 0.4 % (0.0-2.0); EOSINOPHILS # 0.3 10^3/ul (0.0-0.5); EOSINOPHILS % 3.9 % (0.0-7.0); HEMATOCRIT 28.4 % (42.0-52.0); LYMPHOCYTES # 1.2 10^3/ul (0.8-2.9); LYMPHOCYTES % 15.4 % (15.0-51.0); MEAN CORPUSCULAR HEMOGLOBIN 28.8 pg (29.0-33.0); MEAN CORPUSCULAR HGB CONC 31.7 g/dl (32.0-37.0); MEAN PLATELET VOLUME 8.9 fl (7.4-10.4); MONOCYTE # 0.7 10^3/ul (0.3-0.9); MONOCYTES % 8.7 % (0.0-11.0); NEUTROPHIL # 5.6 10^3/ul (1.6-7.5); NEUTROPHILS % 70.8 % (39.0-77.0); PLATELET COUNT 318 10^3/UL (140-415); RED BLOOD COUNT 3.12 10^6/ul (4.70-6.10); RED CELL DISTRIBUTION WIDTH 14.1 % (11.5-14.5)
[2019-02-17 08:43] LABS: WHITE BLOOD COUNT 7.9 10^3/ul (4.8-10.8)
[2019-02-17 09:11] LABS: ANION GAP 15 (5-13); BLOOD UREA NITROGEN 119 mg/dl (7-20); CALCIUM 9.8 mg/dl (8.4-10.2); CARBON DIOXIDE 28 mmol/L (21-31); CHLORIDE 94 mmol/L (97-110); CREATININE 7.54 mg/dl (0.61-1.24); Estimated GFR 7 mL/min (>60); GLUCOSE 133 mg/dl (70-220); POTASSIUM 5.6 mmol/L (3.5-5.1); SODIUM 137 mmol/L (135-144)
[2019-02-17] MEDS: HEPARIN 5,000 UNIT/1 ML VIAL SC ×2 (11:47→20:07)
[2019-02-17] MEDS: LINAGLIPTIN 5 MG TABLET PO (12:09)
[2019-02-17] MEDS: NIFEdipine (XL) 30 MG TAB PO (12:09)
[2019-02-17] MEDS: ATENOLOL 50 MG TAB PO (12:09)
[2019-02-17] MEDS: HYDROCORTISONE 1% 28.35 GM OINT TOP ×3 (12:10→20:00)
[2019-02-17] MEDS ORDERED: CEFAZOLIN 1 GM INJ (13:19)
[2019-02-17] MEDS ORDERED: PROPOFOL 20 ML (13:19)
[2019-02-17] MEDS ORDERED: FENTAnyl 50 MCG/ML VIAL (13:20)
[2019-02-17] MEDS ORDERED: MIDAZOLAM 1 MG/ML 2 ML INJ (13:20)
[2019-02-17 13:22] LABS: POTASSIUM 3.9 mmol/L (3.5-5.1)
[2019-02-17] MEDS ORDERED: FENTAnyl 50 MCG/ML VIAL IV ×3 (14:00)
[2019-02-17] MEDS ORDERED: HYDROmorphONE 1 MG/5 ML IV SYRINGE IV ×3 (14:00)
[2019-02-17] MEDS ORDERED: LABETALOL HCL 20MG INJ IV (14:00)
[2019-02-17] MEDS ORDERED: hydrALAzine 20 MG INJ IV (14:00)
[2019-02-17] MEDS ORDERED: EPHEDrine 25 MG/5 ML SYG IV (14:00)
[2019-02-17] MEDS ORDERED: ONDANSETRON 4 MG INJ IV (14:00)
[2019-02-17] MEDS ORDERED: OXYCODONE/ACETAMINOPHEN (5/325) TAB PO (14:00)
[2019-02-17] MEDS ORDERED: METOCLOPRAMIDE 10 MG INJ (14:50)
[2019-02-17] MEDS ORDERED: ONDANSETRON 4 MG INJ (14:50)
[2019-02-17] MEDS ORDERED: DEXAMETHASONE 4 MG/ML 5 ML INJ (14:50)
[2019-02-17] MEDS: SEVELAMER CARBONATE 0.8 GM PKT PO (20:00)
[2019-02-18] MEDS: ACCU-CHEK XX (02:00)
[2019-02-18] MEDS: HYDROmorphONE 1 MG/ML SYG IV ×6 (04:29→23:27)
[2019-02-18] MEDS: NIFEdipine (XL) 30 MG TAB PO (08:27)
[2019-02-18] MEDS: LINAGLIPTIN 5 MG TABLET PO (08:27)
[2019-02-18] MEDS: ATENOLOL 50 MG TAB PO (08:28)
[2019-02-18] MEDS: HEPARIN 5,000 UNIT/1 ML VIAL SC ×2 (08:30→21:07)
[2019-02-18] MEDS: INSULIN ASPART [NOVOLOG] 3 ML PEN SC ×4 (08:33→21:08)
[2019-02-18] MEDS: HYDROCORTISONE 1% 28.35 GM OINT TOP ×3 (08:34→21:13)
[2019-02-18] MEDS: LEVOFLOXACIN 250 MG TAB PO (12:55)
[2019-02-18] MEDS: SEVELAMER CARBONATE 0.8 GM PKT PO (21:00)
[2019-02-19] MEDS: ACCU-CHEK XX (02:00)
[2019-02-19] MEDS: HYDROmorphONE 1 MG/ML SYG IV ×7 (03:10→23:20)
[2019-02-19] MEDS: INSULIN ASPART [NOVOLOG] 3 ML PEN SC ×4 (08:12→21:35)
[2019-02-19] MEDS: LINAGLIPTIN 5 MG TABLET PO (08:13)
[2019-02-19] MEDS: HEPARIN 5,000 UNIT/1 ML VIAL SC ×2 (08:16→21:00)
[2019-02-19] MEDS: HYDROCORTISONE 1% 28.35 GM OINT TOP ×3 (08:17→21:43)
[2019-02-19] MEDS: LIDOCAINE 1% (MDV) 20 ML INJ INJ (10:03)
[2019-02-19] MEDS: ACETAMINOPHEN 325 MG TAB PO (13:36)
[2019-02-19] MEDS: VANCOMYCIN 1 GM 250 ML IVPB (14:07)
[2019-02-19] MEDS: ATENOLOL 50 MG TAB PO (18:18)
[2019-02-19] MEDS: NIFEdipine (XL) 30 MG TAB PO (18:18)
[2019-02-19] MEDS: SEVELAMER CARBONATE 0.8 GM PKT PO (21:00)
[2019-02-20] MEDS: HYDROmorphONE 1 MG/ML SYG IV ×8 (00:49→23:59)
[2019-02-20] MEDS: ACCU-CHEK XX (02:00)
[2019-02-20] MEDS: morphine 2 MG INJ IV (05:58)
[2019-02-20] MEDS: ATENOLOL 50 MG TAB PO (08:38)
[2019-02-20] MEDS: NIFEdipine (XL) 30 MG TAB PO (08:38)
[2019-02-20] MEDS: LINAGLIPTIN 5 MG TABLET PO (08:42)
[2019-02-20] MEDS: HEPARIN 5,000 UNIT/1 ML VIAL SC ×2 (08:44→21:05)
[2019-02-20] MEDS: INSULIN ASPART [NOVOLOG] 3 ML PEN SC ×4 (08:44→21:00)
[2019-02-20] MEDS: HYDROCORTISONE 1% 28.35 GM OINT TOP ×3 (08:47→21:11)
[2019-02-20] MEDS: LEVOFLOXACIN 250 MG TAB PO (12:05)
[2019-02-20] MEDS: ACETAMINOPHEN 325 MG TAB PO (12:06)
[2019-02-20] MEDS: SEVELAMER CARBONATE 0.8 GM PKT PO (21:04)
[2019-02-20] MEDS: INSULIN GLARGINE [LANTus] (100 UNITS/ML) SYG SC (21:08)
[2019-02-21] MEDS: ACCU-CHEK XX (02:00)
[2019-02-21] MEDS: HYDROmorphONE 1 MG/ML SYG IV ×7 (03:01→22:09)
[2019-02-21] MEDS: ACETAMINOPHEN 325 MG TAB PO ×3 (04:43→23:25)
[2019-02-21] MEDS: NIFEdipine (XL) 30 MG TAB PO (08:17)
[2019-02-21] MEDS: ATENOLOL 50 MG TAB PO (08:18)
[2019-02-21] MEDS: HEPARIN 5,000 UNIT/1 ML VIAL SC (08:20)
[2019-02-21] MEDS: HYDROCORTISONE 1% 28.35 GM OINT TOP ×3 (08:20→20:24)
[2019-02-21] MEDS: LINAGLIPTIN 5 MG TABLET PO (08:21)
[2019-02-21] MEDS: INSULIN ASPART [NOVOLOG] 3 ML PEN SC ×4 (09:03→20:20)
[2019-02-21] MEDS: LIDOCAINE 1% (MDV) 20 ML INJ INJ (10:00)
[2019-02-21] MEDS: ALBUMIN HUMAN 25% 100 ML IV (11:30)
[2019-02-21] MEDS: INSULIN GLARGINE [LANTus] (100 UNITS/ML) SYG SC (20:21)
[2019-02-21] MEDS: SEVELAMER CARBONATE 0.8 GM PKT PO (20:23)
[2019-02-22] MEDS: INSULIN ASPART [NOVOLOG] 3 ML PEN SC ×6 (00:05→20:17)
[2019-02-22] MEDS: SOD CHLORIDE 0.9% 1,000 ML IV ×2 (00:05→10:00)
[2019-02-22] MEDS: HYDROmorphONE 1 MG/ML SYG IV ×4 (01:16→23:11)
[2019-02-22 06:02] LABS: ADD MAN DIFF? NO
[2019-02-22] MEDS: hydrALAzine 20 MG INJ IV (06:15)
[2019-02-22 06:20] LABS: BASOPHILS % 0.3 % (0.0-2.0); EOSINOPHILS # 0.3 10^3/ul (0.0-0.5); EOSINOPHILS % 3.8 % (0.0-7.0); HEMATOCRIT 29.5 % (42.0-52.0); HEMOGLOBIN 9.1 g/dl (14.0-18.0); LYMPHOCYTES # 1.1 10^3/ul (0.8-2.9); LYMPHOCYTES % 15.6 % (15.0-51.0); MEAN CORPUSCULAR HEMOGLOBIN 28.5 pg (29.0-33.0); MEAN CORPUSCULAR HGB CONC 30.8 g/dl (32.0-37.0); MEAN CORPUSCULAR VOLUME 92.5 fl (82.0-101.0); MEAN PLATELET VOLUME 8.9 fl (7.4-10.4); MONOCYTE # 0.9 10^3/ul (0.3-0.9); MONOCYTES % 12.4 % (0.0-11.0); NEUTROPHIL # 4.6 10^3/ul (1.6-7.5); NEUTROPHILS % 67.2 % (39.0-77.0); PLATELET COUNT 304 10^3/UL (140-415); RED BLOOD COUNT 3.19 10^6/ul (4.70-6.10); RED CELL DISTRIBUTION WIDTH 13.7 % (11.5-14.5)
[2019-02-22 06:20] LABS: WHITE BLOOD COUNT 6.9 10^3/ul (4.8-10.8)
[2019-02-22 06:31] LABS: INR 1.03; PROTIME 13.6 Sec (11.9-14.9); PT RATIO 1.1
[2019-02-22 06:51] LABS: ALANINE AMINOTRANSFERASE 10 IU/L (13-69); ALBUMIN 3.8 g/dl (3.3-4.9); ALBUMIN/GLOBULIN RATIO 1.02; ALKALINE PHOSPHATASE 133 IU/L (42-121); ANION GAP 13 (5-13); ASPARTATE AMINO TRANSFERASE 29 IU/L (15-46); BILIRUBIN,INDIRECT 0.2 mg/dl (0-1.1); BILIRUBIN,TOTAL 0.2 mg/dl (0.2-1.3); BLOOD UREA NITROGEN 61 mg/dl (7-20); CARBON DIOXIDE 31 mmol/L (21-31); CHLORIDE 98 mmol/L (97-110); CREATININE 4.42 mg/dl (0.61-1.24); Estimated GFR 14 mL/min (>60); GLUCOSE 98 mg/dl (70-220); POTASSIUM 4.8 mmol/L (3.5-5.1); SODIUM 142 mmol/L (135-144); TOTAL PROTEIN 7.5 g/dl (6.1-8.1)
[2019-02-22] MEDS ORDERED: PROPOFOL 100 ML (07:42)
[2019-02-22] MEDS ORDERED: CEFAZOLIN 1 GM INJ (07:42)
[2019-02-22] MEDS ORDERED: MIDAZOLAM 1 MG/ML 2 ML INJ (07:42)
[2019-02-22] MEDS ORDERED: FENTAnyl 50 MCG/ML VIAL (07:43)
[2019-02-22] MEDS ORDERED: morphine SULFATE/PF (10 MG/10 ML) INJ (07:43)
[2019-02-22] MEDS: POLYMYXIN/BACITRACIN 1L IRRIG IRR (08:28)
[2019-02-22] MEDS: ATENOLOL 50 MG TAB PO ×2 (09:00→12:49)
[2019-02-22] MEDS: NIFEdipine (XL) 30 MG TAB PO ×2 (09:00→12:54)
[2019-02-22] MEDS: HYDROCORTISONE 1% 28.35 GM OINT TOP ×3 (09:00→20:18)
[2019-02-22] MEDS ORDERED: PHENYLephrine (100 MCG/ML) 10ML SYG ×2 (09:51→10:31)
[2019-02-22] MEDS ORDERED: EPHEDrine 25 MG/5 ML SYG (09:51)
[2019-02-22] MEDS ORDERED: METOCLOPRAMIDE 10 MG INJ (10:26)
[2019-02-22] MEDS ORDERED: ONDANSETRON 4 MG INJ (10:26)
[2019-02-22] MEDS ORDERED: HYDROmorphONE 0.5 MG/0.5 ML SYG IV (10:30)
[2019-02-22] MEDS ORDERED: HYDROCODONE/APAP (5/325) TAB PO (10:30)
[2019-02-22] MEDS ORDERED: FENTAnyl 50 MCG/ML VIAL IV (10:30)
[2019-02-22] MEDS ORDERED: ACETAMINOPHEN 500 MG TAB PO (10:30)
[2019-02-22] MEDS ORDERED: NALOXONE (0.4 MG/ML) INJ IV (10:30)
[2019-02-22] MEDS ORDERED: ONDANSETRON 4 MG INJ IV ×2 (10:30)
[2019-02-22] MEDS ORDERED: ALBUTEROL 0.083% (NEB) 2.5 MG/3 ML AMP HHN (10:30)
[2019-02-22] MEDS ORDERED: EPHEDrine 25 MG/5 ML SYG IV (10:30)
[2019-02-22] MEDS ORDERED: DIPHENHYDRAMINE 50 MG INJ IV ×2 (10:30)
[2019-02-22] MEDS ORDERED: METOCLOPRAMIDE 10 MG INJ IV (10:30)
[2019-02-22] MEDS ORDERED: LABETALOL HCL 20MG INJ IV (10:30)
[2019-02-22] MEDS ORDERED: OXYCODONE/ACETAMINOPHEN (5/325) TAB PO (10:30)
[2019-02-22] MEDS ORDERED: ALBUMIN HUMAN 5% 250 ML IV (10:30)
[2019-02-22] MEDS ORDERED: MEPERIDINE 25 MG INJ IV (10:30)
[2019-02-22] MEDS ORDERED: morphine 2 MG INJ IV (10:30)
[2019-02-22] MEDS ORDERED: HYDROmorphONE 1 MG/5 ML IV SYRINGE IV (10:30)
[2019-02-22] MEDS ORDERED: NALBUPHINE HCL (10 MG/1 ML) INJ IV (10:30)
[2019-02-22] MEDS ORDERED: IPRATROPIUM (NEB) 0.5 MG/2.5 ML AMP HHN (10:30)
[2019-02-22] MEDS: FENTAnyl 50 MCG/ML VIAL IV (11:30)
[2019-02-22] MEDS: HYDROmorphONE 1 MG/5 ML IV SYRINGE IV (11:55)
[2019-02-22] MEDS: LINAGLIPTIN 5 MG TABLET PO (12:53)
[2019-02-22] MEDS: LEVOFLOXACIN 250 MG TAB PO (12:55)
[2019-02-22] MEDS: oxyCODONE 5 MG TAB PO ×2 (13:05→16:45)
[2019-02-22] MEDS: ACETAMINOPHEN 325 MG TAB PO (18:09)
[2019-02-22] MEDS: SEVELAMER CARBONATE 0.8 GM PKT PO (20:15)
[2019-02-22] MEDS: INSULIN GLARGINE [LANTus] (100 UNITS/ML) SYG SC (20:16)
[2019-02-22] MEDS: CLONIDINE 0.2 MG/24 HR PATCH TRANSDERM (20:18)
[2019-02-22] MEDS: CEFAZOLIN 2 GM/50 ML (PMX) 50 ML IVPB (21:26)
[2019-02-23] MEDS: HYDROmorphONE 1 MG/ML SYG IV ×7 (02:08→22:26)
[2019-02-23] MEDS: ACCU-CHEK XX (02:08)
[2019-02-23 05:58] LABS: ADD MAN DIFF? NO
[2019-02-23 06:11] LABS: BASOPHILS % 0.3 % (0.0-2.0); EOSINOPHILS # 0.1 10^3/ul (0.0-0.5); EOSINOPHILS % 0.5 % (0.0-7.0); HEMATOCRIT 23.3 % (42.0-52.0); HEMOGLOBIN 7.2 g/dl (14.0-18.0); LYMPHOCYTES # 1.1 10^3/ul (0.8-2.9); LYMPHOCYTES % 9.7 % (15.0-51.0); MEAN CORPUSCULAR HEMOGLOBIN 28.6 pg (29.0-33.0); MEAN CORPUSCULAR HGB CONC 30.9 g/dl (32.0-37.0); MEAN CORPUSCULAR VOLUME 92.5 fl (82.0-101.0); NEUTROPHILS % 80.1 % (39.0-77.0); PLATELET COUNT 250 10^3/UL (140-415); RED BLOOD COUNT 2.52 10^6/ul (4.70-6.10); RED CELL DISTRIBUTION WIDTH 14.4 % (11.5-14.5)
[2019-02-23 06:11] LABS: WHITE BLOOD COUNT 11.3 10^3/ul (4.8-10.8)
[2019-02-23 06:58] LABS: ANION GAP 13 (5-13); BLOOD UREA NITROGEN 83 mg/dl (7-20); CALCIUM 9.4 mg/dl (8.4-10.2); CARBON DIOXIDE 25 mmol/L (21-31); CHLORIDE 101 mmol/L (97-110); CREATININE 5.78 mg/dl (0.61-1.24); Estimated GFR 10 mL/min (>60); GLUCOSE 171 mg/dl (70-220); POTASSIUM 4.9 mmol/L (3.5-5.1); SODIUM 139 mmol/L (135-144)
[2019-02-23] MEDS: oxyCODONE 5 MG TAB PO ×3 (07:45→21:39)
[2019-02-23] MEDS: INSULIN ASPART [NOVOLOG] 3 ML PEN SC ×4 (08:08→20:16)
[2019-02-23] MEDS: HEPARIN 5,000 UNIT/1 ML VIAL SC ×2 (08:09→20:17)
[2019-02-23] MEDS: LINAGLIPTIN 5 MG TABLET PO (08:11)
[2019-02-23] MEDS: NIFEdipine (XL) 30 MG TAB PO (08:11)
[2019-02-23] MEDS: ATENOLOL 50 MG TAB PO (08:11)
[2019-02-23] MEDS: CEFAZOLIN 2 GM/50 ML (PMX) 50 ML IVPB (08:24)
[2019-02-23] MEDS: HYDROCORTISONE 1% 28.35 GM OINT TOP ×3 (09:00→20:24)
[2019-02-23] MEDS: ACETAMINOPHEN 325 MG TAB PO ×2 (11:27→16:38)
[2019-02-23] MEDS: INSULIN GLARGINE [LANTus] (100 UNITS/ML) SYG SC (20:15)
[2019-02-23] MEDS: SEVELAMER CARBONATE 0.8 GM PKT PO (20:17)
[2019-02-24] MEDS: HYDROmorphONE 1 MG/ML SYG IV ×7 (01:35→21:34)
[2019-02-24] MEDS: ACCU-CHEK XX (02:00)
[2019-02-24] MEDS: ATENOLOL 50 MG TAB PO (08:10)
[2019-02-24] MEDS: LINAGLIPTIN 5 MG TABLET PO (08:10)
[2019-02-24] MEDS: NIFEdipine (XL) 30 MG TAB PO (08:10)
[2019-02-24] MEDS: INSULIN ASPART [NOVOLOG] 3 ML PEN SC ×4 (08:14→21:00)
[2019-02-24] MEDS: HYDROCORTISONE 1% 28.35 GM OINT TOP ×3 (08:16→21:37)
[2019-02-24] MEDS: HEPARIN 5,000 UNIT/1 ML VIAL SC ×2 (08:16→21:33)
[2019-02-24] MEDS: LIDOCAINE 1% (MDV) 20 ML INJ INJ (10:35)
[2019-02-24] MEDS: ACETAMINOPHEN 325 MG TAB PO (12:20)
[2019-02-24] MEDS: oxyCODONE 5 MG TAB PO ×2 (16:00→20:58)
[2019-02-24] MEDS: SEVELAMER CARBONATE 0.8 GM PKT PO (21:30)
[2019-02-24] MEDS: INSULIN GLARGINE [LANTus] (100 UNITS/ML) SYG SC (21:32)
[2019-02-25] MEDS: HYDROmorphONE 1 MG/ML SYG IV ×7 (00:37→22:16)
[2019-02-25] MEDS: ACCU-CHEK XX (01:49)
[2019-02-25] MEDS: LINAGLIPTIN 5 MG TABLET PO (08:28)
[2019-02-25] MEDS: ATENOLOL 50 MG TAB PO (08:28)
[2019-02-25] MEDS: NIFEdipine (XL) 30 MG TAB PO (08:28)
[2019-02-25] MEDS: HYDROCORTISONE 1% 28.35 GM OINT TOP ×3 (08:30→20:39)
[2019-02-25] MEDS: INSULIN ASPART [NOVOLOG] 3 ML PEN SC ×4 (08:31→20:29)
[2019-02-25] MEDS: HEPARIN 5,000 UNIT/1 ML VIAL SC ×2 (08:35→20:28)
[2019-02-25] MEDS: oxyCODONE 5 MG TAB PO (08:37)
[2019-02-25] MEDS: INSULIN GLARGINE [LANTus] (100 UNITS/ML) SYG SC (20:28)
[2019-02-25] MEDS: SEVELAMER CARBONATE 0.8 GM PKT PO (20:28)
[2019-02-25] MEDS: ACETAMINOPHEN 325 MG TAB PO (21:27)
[2019-02-26] MEDS: ACCU-CHEK XX (01:08)
[2019-02-26] MEDS: HYDROmorphONE 1 MG/ML SYG IV ×8 (01:09→23:37)
[2019-02-26] MEDS: INSULIN ASPART [NOVOLOG] 3 ML PEN SC ×4 (08:00→21:00)
[2019-02-26] MEDS: NIFEdipine (XL) 30 MG TAB PO (09:00)
[2019-02-26] MEDS: LINAGLIPTIN 5 MG TABLET PO (09:12)
[2019-02-26] MEDS: HEPARIN 5,000 UNIT/1 ML VIAL SC ×2 (09:14→23:36)
[2019-02-26] MEDS: HYDROCORTISONE 1% 28.35 GM OINT TOP ×3 (09:15→21:00)
[2019-02-26] MEDS: ATENOLOL 50 MG TAB PO (09:15)
[2019-02-26] MEDS: ACETAMINOPHEN 325 MG TAB PO (16:03)
[2019-02-26] MEDS: LIDOCAINE 1% (MDV) 20 ML INJ INJ (20:01)
[2019-02-26] MEDS: oxyCODONE 5 MG TAB PO ×2 (21:50→23:47)
[2019-02-26] MEDS: SEVELAMER CARBONATE 0.8 GM PKT PO (23:35)
[2019-02-26] MEDS: INSULIN GLARGINE [LANTus] (100 UNITS/ML) SYG SC (23:37)
[2019-02-27] MEDS: ACCU-CHEK XX (01:42)
[2019-02-27] MEDS: HYDROmorphONE 1 MG/ML SYG IV ×7 (02:50→21:13)
[2019-02-27] MEDS: LACTULOSE 30ML CUP PO (06:57)
[2019-02-27 07:19] LABS: ADD MAN DIFF? NO
[2019-02-27 07:30] LABS: BASOPHILS % 0.6 % (0.0-2.0); EOSINOPHILS # 0.2 10^3/ul (0.0-0.5); EOSINOPHILS % 3.7 % (0.0-7.0); HEMATOCRIT 24.8 % (42.0-52.0); HEMOGLOBIN 7.8 g/dl (14.0-18.0); LYMPHOCYTES # 0.8 10^3/ul (0.8-2.9); LYMPHOCYTES % 16.6 % (15.0-51.0); MEAN CORPUSCULAR HEMOGLOBIN 29.3 pg (29.0-33.0); MEAN CORPUSCULAR HGB CONC 31.5 g/dl (32.0-37.0); MEAN CORPUSCULAR VOLUME 93.2 fl (82.0-101.0); MEAN PLATELET VOLUME 8.9 fl (7.4-10.4); MONOCYTE # 0.4 10^3/ul (0.3-0.9); MONOCYTES % 7.8 % (0.0-11.0); NEUTROPHIL # 3.4 10^3/ul (1.6-7.5); NEUTROPHILS % 70.1 % (39.0-77.0); PLATELET COUNT 303 10^3/UL (140-415); RED BLOOD COUNT 2.66 10^6/ul (4.70-6.10); RED CELL DISTRIBUTION WIDTH 14.5 % (11.5-14.5)
[2019-02-27 07:30] LABS: WHITE BLOOD COUNT 4.9 10^3/ul (4.8-10.8)
[2019-02-27 07:39] LABS: MAGNESIUM 2.5 mg/dl (1.7-2.5)
[2019-02-27 07:49] LABS: ALANINE AMINOTRANSFERASE 6 IU/L (13-69); ALBUMIN 3.7 g/dl (3.3-4.9); ALBUMIN/GLOBULIN RATIO 0.94; ALKALINE PHOSPHATASE 255 IU/L (42-121); ANION GAP 13 (5-13); ASPARTATE AMINO TRANSFERASE 30 IU/L (15-46); BILIRUBIN,INDIRECT 0.2 mg/dl (0-1.1); BILIRUBIN,TOTAL 0.2 mg/dl (0.2-1.3); BLOOD UREA NITROGEN 42 mg/dl (7-20); CALCIUM 9.9 mg/dl (8.4-10.2); CARBON DIOXIDE 31 mmol/L (21-31); CHLORIDE 95 mmol/L (97-110); CREATININE 3.93 mg/dl (0.61-1.24); Estimated GFR 16 mL/min (>60); GLUCOSE 139 mg/dl (70-220); INR 1.01; POTASSIUM 4.6 mmol/L (3.5-5.1); PROTIME 13.4 Sec (11.9-14.9); SODIUM 139 mmol/L (135-144); TOTAL PROTEIN 7.6 g/dl (6.1-8.1)
[2019-02-27 07:50] LABS: PARTIAL THROMBOPLASTIN TIME 42.1 Sec (23.0-35.0)
[2019-02-27] MEDS: ATENOLOL 50 MG TAB PO (08:36)
[2019-02-27] MEDS: LINAGLIPTIN 5 MG TABLET PO (08:36)
[2019-02-27] MEDS: NIFEdipine (XL) 30 MG TAB PO (08:37)
[2019-02-27] MEDS: HYDROCORTISONE 1% 28.35 GM OINT TOP ×3 (08:37→21:00)
[2019-02-27] MEDS: HEPARIN 5,000 UNIT/1 ML VIAL SC ×2 (08:38→21:06)
[2019-02-27] MEDS: INSULIN ASPART [NOVOLOG] 3 ML PEN SC ×4 (08:42→20:59)
[2019-02-27] MEDS: ACETAMINOPHEN 325 MG TAB PO (19:12)
[2019-02-27] MEDS: INSULIN GLARGINE [LANTus] (100 UNITS/ML) SYG SC (20:58)
[2019-02-27] MEDS: SEVELAMER CARBONATE 0.8 GM PKT PO (21:00)
[2019-02-28] MEDS: HYDROmorphONE 1 MG/ML SYG IV ×8 (00:18→23:48)
[2019-02-28] MEDS: ACCU-CHEK XX (02:00)
[2019-02-28] MEDS: INSULIN ASPART [NOVOLOG] 3 ML PEN SC ×4 (08:00→20:47)
[2019-02-28] MEDS: ATENOLOL 50 MG TAB PO (08:25)
[2019-02-28] MEDS: HEPARIN 5,000 UNIT/1 ML VIAL SC ×2 (08:25→20:45)
[2019-02-28] MEDS: NIFEdipine (XL) 30 MG TAB PO (08:25)
[2019-02-28] MEDS: HYDROCORTISONE 1% 28.35 GM OINT TOP ×3 (08:26→20:54)
[2019-02-28] MEDS: LINAGLIPTIN 5 MG TABLET PO (08:28)
[2019-02-28] MEDS: LACTULOSE 30ML CUP PO (10:13)
[2019-02-28] MEDS: LIDOCAINE 1% (MDV) 20 ML INJ INJ (16:22)
[2019-02-28] MEDS: ALBUMIN HUMAN 25% 100 ML IV (18:49)
[2019-02-28] MEDS: SEVELAMER CARBONATE 0.8 GM PKT PO (20:45)
[2019-02-28] MEDS: INSULIN GLARGINE [LANTus] (100 UNITS/ML) SYG SC (20:47)
[2019-03-01] MEDS: ACCU-CHEK XX (02:00)
[2019-03-01] MEDS: HYDROmorphONE 1 MG/ML SYG IV ×7 (02:53→22:22)
[2019-03-01] MEDS: INSULIN ASPART [NOVOLOG] 3 ML PEN SC ×4 (08:00→20:50)
[2019-03-01] MEDS: ACETAMINOPHEN 325 MG TAB PO (08:01)
[2019-03-01] MEDS: ATENOLOL 50 MG TAB PO (08:09)
[2019-03-01] MEDS: NIFEdipine (XL) 30 MG TAB PO (08:09)
[2019-03-01] MEDS: LINAGLIPTIN 5 MG TABLET PO (08:15)
[2019-03-01] MEDS: HYDROCORTISONE 1% 28.35 GM OINT TOP ×3 (08:18→20:57)
[2019-03-01] MEDS: HEPARIN 5,000 UNIT/1 ML VIAL SC ×2 (08:18→20:56)
[2019-03-01] MEDS: INSULIN GLARGINE [LANTus] (100 UNITS/ML) SYG SC (20:51)
[2019-03-01] MEDS: CLONIDINE 0.2 MG/24 HR PATCH TRANSDERM (20:52)
[2019-03-01] MEDS: SEVELAMER CARBONATE 0.8 GM PKT PO (20:56)
[2019-03-01] MEDS: oxyCODONE 15 MG TAB PO (20:57)
[2019-03-02] MEDS: HYDROmorphONE 1 MG/ML SYG IV ×5 (01:42→14:04)
[2019-03-02] MEDS: ACCU-CHEK XX (01:59)
[2019-03-02] MEDS: INSULIN ASPART [NOVOLOG] 3 ML PEN SC ×4 (08:00→20:17)
[2019-03-02] MEDS: NIFEdipine (XL) 30 MG TAB PO (08:12)
[2019-03-02] MEDS: ATENOLOL 50 MG TAB PO (08:12)
[2019-03-02] MEDS: LINAGLIPTIN 5 MG TABLET PO (08:15)
[2019-03-02] MEDS: HEPARIN 5,000 UNIT/1 ML VIAL SC ×2 (08:16→20:09)
[2019-03-02] MEDS: HYDROCORTISONE 1% 28.35 GM OINT TOP ×3 (08:20→20:19)
[2019-03-02] MEDS: HYDROmorphONE 2 MG TAB PO ×3 (17:09→23:11)
[2019-03-02] MEDS: SEVELAMER CARBONATE 0.8 GM PKT PO (20:09)
[2019-03-02] MEDS: INSULIN GLARGINE [LANTus] (100 UNITS/ML) SYG SC (20:18)
[2019-03-03] MEDS: ACCU-CHEK XX (01:26)
[2019-03-03] MEDS: HYDROmorphONE 2 MG TAB PO ×6 (02:12→22:12)
[2019-03-03 07:49] LABS: ADD MAN DIFF? NO
[2019-03-03 07:54] LABS: BASOPHILS % 0.5 % (0.0-2.0); EOSINOPHILS # 0.3 10^3/ul (0.0-0.5); EOSINOPHILS % 5.6 % (0.0-7.0); HEMATOCRIT 23.7 % (42.0-52.0); HEMOGLOBIN 7.4 g/dl (14.0-18.0); LYMPHOCYTES # 1.2 10^3/ul (0.8-2.9); LYMPHOCYTES % 20.6 % (15.0-51.0); MEAN CORPUSCULAR HEMOGLOBIN 28.8 pg (29.0-33.0); MEAN CORPUSCULAR HGB CONC 31.2 g/dl (32.0-37.0); MEAN CORPUSCULAR VOLUME 92.2 fl (82.0-101.0); MEAN PLATELET VOLUME 8.7 fl (7.4-10.4); MONOCYTE # 0.7 10^3/ul (0.3-0.9); MONOCYTES % 11.8 % (0.0-11.0); NEUTROPHIL # 3.7 10^3/ul (1.6-7.5); NEUTROPHILS % 60.5 % (39.0-77.0); PLATELET COUNT 281 10^3/UL (140-415); RED BLOOD COUNT 2.57 10^6/ul (4.70-6.10); RED CELL DISTRIBUTION WIDTH 14.9 % (11.5-14.5)
[2019-03-03] MEDS: INSULIN ASPART [NOVOLOG] 3 ML PEN SC ×4 (08:00→20:20)
[2019-03-03] MEDS: NIFEdipine (XL) 30 MG TAB PO (08:18)
[2019-03-03] MEDS: LINAGLIPTIN 5 MG TABLET PO (08:18)
[2019-03-03] MEDS: ATENOLOL 50 MG TAB PO (08:18)
[2019-03-03] MEDS: HYDROCORTISONE 1% 28.35 GM OINT TOP ×3 (08:19→20:29)
[2019-03-03] MEDS: HEPARIN 5,000 UNIT/1 ML VIAL SC ×2 (08:20→20:23)
[2019-03-03] MEDS: LIDOCAINE 1% (MDV) 20 ML INJ INJ (14:27)
[2019-03-03] MEDS: ALBUMIN HUMAN 25% 100 ML IV (14:53)
[2019-03-03] MEDS: oxyCODONE 5 MG TAB PO (15:27)
[2019-03-03] MEDS: INSULIN GLARGINE [LANTus] (100 UNITS/ML) SYG SC (20:22)
[2019-03-03] MEDS: SEVELAMER CARBONATE 0.8 GM PKT PO (20:23)
[2019-03-04] MEDS: HYDROmorphONE 2 MG TAB PO ×6 (01:12→21:39)
[2019-03-04] MEDS: ACCU-CHEK XX (02:00)
[2019-03-04] MEDS: INSULIN ASPART [NOVOLOG] 3 ML PEN SC ×4 (08:00→21:42)
[2019-03-04] MEDS: ATENOLOL 50 MG TAB PO (08:18)
[2019-03-04] MEDS: NIFEdipine (XL) 30 MG TAB PO (08:19)
[2019-03-04] MEDS: HEPARIN 5,000 UNIT/1 ML VIAL SC ×2 (08:20→21:40)
[2019-03-04] MEDS: LINAGLIPTIN 5 MG TABLET PO (08:20)
[2019-03-04] MEDS: HYDROCORTISONE 1% 28.35 GM OINT TOP ×3 (08:21→21:43)
[2019-03-04] MEDS: SEVELAMER CARBONATE 0.8 GM PKT PO (21:00)
[2019-03-04] MEDS: INSULIN GLARGINE [LANTus] (100 UNITS/ML) SYG SC (21:42)
[2019-03-05] MEDS: ACCU-CHEK XX (02:00)
[2019-03-05] MEDS: HYDROmorphONE 2 MG TAB PO ×6 (02:37→23:47)
[2019-03-05] MEDS: INSULIN ASPART [NOVOLOG] 3 ML PEN SC ×4 (08:41→21:00)
[2019-03-05] MEDS: ATENOLOL 50 MG TAB PO (08:42)
[2019-03-05] MEDS: NIFEdipine (XL) 30 MG TAB PO (08:43)
[2019-03-05] MEDS: LINAGLIPTIN 5 MG TABLET PO (08:44)
[2019-03-05] MEDS: HEPARIN 5,000 UNIT/1 ML VIAL SC ×2 (08:46→23:46)
[2019-03-05] MEDS: HYDROCORTISONE 1% 28.35 GM OINT TOP ×3 (08:49→21:00)
[2019-03-05] MEDS: LACTULOSE 30ML CUP PO (17:27)
[2019-03-05] MEDS: LIDOCAINE 1% (MDV) 20 ML INJ INJ (19:56)
[2019-03-05] MEDS: ALBUMIN HUMAN 25% 100 ML IV ×2 (20:53→21:52)
[2019-03-05] MEDS: ACETAMINOPHEN 325 MG TAB PO (22:08)
[2019-03-05] MEDS: INSULIN GLARGINE [LANTus] (100 UNITS/ML) SYG SC (23:45)
[2019-03-05] MEDS: SEVELAMER CARBONATE 0.8 GM PKT PO (23:51)
[2019-03-06] MEDS: ACCU-CHEK XX (01:21)
[2019-03-06] MEDS: oxyCODONE 15 MG TAB PO ×2 (02:07→06:16)
[2019-03-06] MEDS: HYDROmorphONE 2 MG TAB PO ×3 (03:37→11:37)
[2019-03-06] MEDS: ACETAMINOPHEN 325 MG TAB PO (05:06)
[2019-03-06] MEDS: LACTULOSE 30ML CUP PO ×2 (05:06→08:14)
[2019-03-06 07:30] LABS: ADD MAN DIFF? NO
[2019-03-06 07:31] LABS: BASOPHILS % 0.6 % (0.0-2.0); EOSINOPHILS # 0.3 10^3/ul (0.0-0.5); EOSINOPHILS % 6.1 % (0.0-7.0); HEMATOCRIT 23.7 % (42.0-52.0); HEMOGLOBIN 7.4 g/dl (14.0-18.0); LYMPHOCYTES # 1.1 10^3/ul (0.8-2.9); LYMPHOCYTES % 22.5 % (15.0-51.0); MEAN CORPUSCULAR HEMOGLOBIN 29.2 pg (29.0-33.0); MEAN CORPUSCULAR HGB CONC 31.2 g/dl (32.0-37.0); MEAN CORPUSCULAR VOLUME 93.7 fl (82.0-101.0); MEAN PLATELET VOLUME 8.7 fl (7.4-10.4); MONOCYTE # 0.5 10^3/ul (0.3-0.9); MONOCYTES % 10.7 % (0.0-11.0); NEUTROPHILS % 59.5 % (39.0-77.0); PLATELET COUNT 233 10^3/UL (140-415); RED BLOOD COUNT 2.53 10^6/ul (4.70-6.10)
[2019-03-06 07:31] LABS: WHITE BLOOD COUNT 5.1 10^3/ul (4.8-10.8)
[2019-03-06 07:49] LABS: ANION GAP 12 (5-13); BLOOD UREA NITROGEN 43 mg/dl (7-20); CALCIUM 10.8 mg/dl (8.4-10.2); CARBON DIOXIDE 34 mmol/L (21-31); CHLORIDE 93 mmol/L (97-110); CREATININE 3.89 mg/dl (0.61-1.24); Estimated GFR 16 mL/min (>60); GLUCOSE 75 mg/dl (70-220); POTASSIUM 4.8 mmol/L (3.5-5.1); SODIUM 139 mmol/L (135-144)
[2019-03-06] MEDS: INSULIN ASPART [NOVOLOG] 3 ML PEN SC (08:00)
[2019-03-06] MEDS: ATENOLOL 50 MG TAB PO (08:15)
[2019-03-06] MEDS: LINAGLIPTIN 5 MG TABLET PO (08:15)
[2019-03-06] MEDS: NIFEdipine (XL) 30 MG TAB PO (08:16)
[2019-03-06] MEDS: HYDROCORTISONE 1% 28.35 GM OINT TOP (08:17)
[2019-03-06] MEDS: HEPARIN 5,000 UNIT/1 ML VIAL SC (08:21)
== END 2019-03-06 12:50 | DRG 474 ==
LOC: 2NE 01-08 19:18 → 5EC 01-24 21:54 → TEL 01-03 02:29 → E/R 22:39
PROC: 0QSG04Z Reposition Right Tibia with Internal Fixation Device, Open Approach (ICD-10-PCS; principal; 2019-01-04 07:00)
PROC: 0QDG0ZZ Extraction of Right Tibia, Open Approach (ICD-10-PCS; 2019-01-04 07:00)
PROC: 0Y6H0Z1 Detachment at Right Lower Leg, High, Open Approach (ICD-10-PCS; 2019-01-04 07:28)
PROC: 0SGH04Z Fusion of Right Tarsal Joint with Internal Fixation Device, Open Approach (ICD-10-PCS; 2019-01-04 07:28)
PROC: 0SGF04Z Fusion of Right Ankle Joint with Internal Fixation Device, Open Approach (ICD-10-PCS; 2019-01-04 07:28)
PROC: 0QDG0ZZ Extraction of Right Tibia, Open Approach (ICD-10-PCS; 2019-01-04 07:28)
PROC: 0QBG0ZZ Excision of Right Tibia, Open Approach (ICD-10-PCS; 2019-01-04 07:28)
PROC: 0QDG0ZZ Extraction of Right Tibia, Open Approach (ICD-10-PCS; 2019-01-04 07:28)
PROC: 2W0SX6Z Change Pressure Dressing on Right Foot (ICD-10-PCS; 2019-01-04 07:28)
PROC: 30233N1 Transfusion of Nonautologous Red Blood Cells into Peripheral Vein, Percutaneous Approach (ICD-10-PCS; 2019-01-04 07:28)
PROC: 5A1D70Z Performance of Urinary Filtration, Intermittent, Less than 6 Hours Per Day (ICD-10-PCS; 2019-01-04 07:28)
PROC: 5A1D70Z Performance of Urinary Filtration, Intermittent, Less than 6 Hours Per Day (ICD-10-PCS; 2019-01-04 07:28)
PROC: 5A1D70Z Performance of Urinary Filtration, Intermittent, Less than 6 Hours Per Day (ICD-10-PCS; 2019-01-04 07:28)
PROC: 5A1D70Z Performance of Urinary Filtration, Intermittent, Less than 6 Hours Per Day (ICD-10-PCS; 2019-01-04 07:28)
PROC: 5A1D70Z Performance of Urinary Filtration, Intermittent, Less than 6 Hours Per Day (ICD-10-PCS; 2019-01-04 07:28)
PROC: 5A1D70Z Performance of Urinary Filtration, Intermittent, Less than 6 Hours Per Day (ICD-10-PCS; 2019-01-04 07:28)
PROC: 5A1D70Z Performance of Urinary Filtration, Intermittent, Less than 6 Hours Per Day (ICD-10-PCS; 2019-01-04 07:28)
PROC: 5A1D70Z Performance of Urinary Filtration, Intermittent, Less than 6 Hours Per Day (ICD-10-PCS; 2019-01-04 07:28)
PROC: 5A1D70Z Performance of Urinary Filtration, Intermittent, Less than 6 Hours Per Day (ICD-10-PCS; 2019-01-04 07:28)
PROC: 5A1D70Z Performance of Urinary Filtration, Intermittent, Less than 6 Hours Per Day (ICD-10-PCS; 2019-01-04 07:28)
PROC: 5A1D70Z Performance of Urinary Filtration, Intermittent, Less than 6 Hours Per Day (ICD-10-PCS; 2019-01-04 07:28)
PROC: 5A1D70Z Performance of Urinary Filtration, Intermittent, Less than 6 Hours Per Day (ICD-10-PCS; 2019-01-04 07:28)
PROC: 5A1D70Z Performance of Urinary Filtration, Intermittent, Less than 6 Hours Per Day (ICD-10-PCS; 2019-01-04 07:28)
PROC: 5A1D70Z Performance of Urinary Filtration, Intermittent, Less than 6 Hours Per Day (ICD-10-PCS; 2019-01-04 07:28)
PROC: 5A1D70Z Performance of Urinary Filtration, Intermittent, Less than 6 Hours Per Day (ICD-10-PCS; 2019-01-04 07:28)
PROC: 5A1D70Z Performance of Urinary Filtration, Intermittent, Less than 6 Hours Per Day (ICD-10-PCS; 2019-01-04 07:28)
PROC: 5A1D70Z Performance of Urinary Filtration, Intermittent, Less than 6 Hours Per Day (ICD-10-PCS; 2019-01-04 07:28)
PROC: 5A1D70Z Performance of Urinary Filtration, Intermittent, Less than 6 Hours Per Day (ICD-10-PCS; 2019-01-04 07:28)
PROC: 5A1D70Z Performance of Urinary Filtration, Intermittent, Less than 6 Hours Per Day (ICD-10-PCS; 2019-01-04 07:28)
PROC: 5A1D70Z Performance of Urinary Filtration, Intermittent, Less than 6 Hours Per Day (ICD-10-PCS; 2019-01-04 07:28)
PROC: 5A1D70Z Performance of Urinary Filtration, Intermittent, Less than 6 Hours Per Day (ICD-10-PCS; 2019-01-04 07:28)
PROC: 5A1D70Z Performance of Urinary Filtration, Intermittent, Less than 6 Hours Per Day (ICD-10-PCS; 2019-01-04 07:28)
PROC: 5A1D70Z Performance of Urinary Filtration, Intermittent, Less than 6 Hours Per Day (ICD-10-PCS; 2019-01-04 07:28)
PROC: 5A1D70Z Performance of Urinary Filtration, Intermittent, Less than 6 Hours Per Day (ICD-10-PCS; 2019-01-04 07:28)
PROC: 5A1D70Z Performance of Urinary Filtration, Intermittent, Less than 6 Hours Per Day (ICD-10-PCS; 2019-01-04 07:28)
PROC: 5A1D70Z Performance of Urinary Filtration, Intermittent, Less than 6 Hours Per Day (ICD-10-PCS; 2019-01-04 07:28)
PROC: 5A1D70Z Performance of Urinary Filtration, Intermittent, Less than 6 Hours Per Day (ICD-10-PCS; 2019-01-04 07:28)
DX: S82.51XB Displaced fracture of medial malleolus of right tibia, initial encounter for open fracture type I or II (principal); N18.6 End stage renal disease; J96.01 Acute respiratory failure with hypoxia; I13.0 Hypertensive heart and chronic kidney disease with heart failure and stage 1 through stage 4 chronic kidney disease, or unspecified chronic kidney disease; R65.10 Systemic inflammatory response syndrome (SIRS) of non-infectious origin without acute organ dysfunction; E11.8 Type 2 diabetes mellitus with unspecified complications; E11.43 Type 2 diabetes mellitus with diabetic autonomic (poly)neuropathy; E87.5 Hyperkalemia; E11.319 Type 2 diabetes mellitus with unspecified diabetic retinopathy without macular edema; I50.9 Heart failure, unspecified; N18.9 Chronic kidney disease, unspecified; Z99.2 Dependence on renal dialysis; I25.10 Atherosclerotic heart disease of native coronary artery without angina pectoris; E78.5 Hyperlipidemia, unspecified; H40.9 Unspecified glaucoma; M19.90 Unspecified osteoarthritis, unspecified site; J44.9 Chronic obstructive pulmonary disease, unspecified; I73.9 Peripheral vascular disease, unspecified; D63.1 Anemia in chronic kidney disease; E66.9 Obesity, unspecified; Z68.24 Body mass index [BMI] 24.0-24.9, adult; F41.9 Anxiety disorder, unspecified; W18.30XA Fall on same level, unspecified, initial encounter; Z87.891 Personal history of nicotine dependence; M51.36 Other intervertebral disc degeneration, lumbar region; R50.82 Postprocedural fever; Z91.19 Patient's noncompliance with other medical treatment and regimen
CPT/HCPCS: 36430; 70450; 71045; 73590; 73600; 73610-RT; 76775; 80048; 80053; 80061; 80202; 82140; 82270; 82607; 82728; 82746; 82962; 83036; 83540; 83605; 83615; 83735; 84132; 84443; 85025; 85045; 85610; 85730; 86850; 86900; 86901; 86920; 87040-91; 87070; 87075; 87081; 87340; 88300; 88307; 90471; 90715; 90935; 93005; 93306; 96374; 96375; 96376; 97110; 97162; 97164; 97530; 99285-25

== ENCOUNTER 2019-03-11 14:31 | Inpatient (IN) | payer MEDICARE, OTHER ==
[2019-03-11 14:57] LABS: ADD MAN DIFF? NO
[2019-03-11 14:59] LABS: WHITE BLOOD COUNT 6.5 10^3/ul (4.8-10.8)
[2019-03-11 14:59] LABS: BASOPHILS % 0.3 % (0.0-2.0); EOSINOPHILS # 0.3 10^3/ul (0.0-0.5); EOSINOPHILS % 5.2 % (0.0-7.0); HEMATOCRIT 23.6 % (42.0-52.0); HEMOGLOBIN 7.6 g/dl (14.0-18.0); LYMPHOCYTES # 1.3 10^3/ul (0.8-2.9); LYMPHOCYTES % 19.1 % (15.0-51.0); MEAN CORPUSCULAR HEMOGLOBIN 29.8 pg (29.0-33.0); MEAN CORPUSCULAR HGB CONC 32.2 g/dl (32.0-37.0); MEAN CORPUSCULAR VOLUME 92.5 fl (82.0-101.0); MEAN PLATELET VOLUME 8.8 fl (7.4-10.4); MONOCYTE # 0.7 10^3/ul (0.3-0.9); MONOCYTES % 11.3 % (0.0-11.0); NEUTROPHIL # 4.2 10^3/ul (1.6-7.5); NEUTROPHILS % 63.9 % (39.0-77.0); PLATELET COUNT 220 10^3/UL (140-415); RED BLOOD COUNT 2.55 10^6/ul (4.70-6.10); RED CELL DISTRIBUTION WIDTH 15.5 % (11.5-14.5)
[2019-03-11 15:16] LABS: ALANINE AMINOTRANSFERASE 30 IU/L (13-69); ALBUMIN 4.2 g/dl (3.3-4.9); ALBUMIN/GLOBULIN RATIO 1.16; ALKALINE PHOSPHATASE 160 IU/L (42-121); ANION GAP 22 (5-13); ASPARTATE AMINO TRANSFERASE 28 IU/L (15-46); CARBON DIOXIDE 31 mmol/L (21-31); CHLORIDE 86 mmol/L (97-110); CREATININE 10.72 mg/dl (0.61-1.24); Estimated GFR 5 mL/min (>60); GLUCOSE 110 mg/dl (70-220); POTASSIUM 5.7 mmol/L (3.5-5.1); SODIUM 139 mmol/L (135-144); TOTAL PROTEIN 7.8 g/dl (6.1-8.1)
[2019-03-11 15:18] LABS: INR 1.02; PROTIME 13.5 Sec (11.9-14.9); PT RATIO 1.1
[2019-03-11 15:19] LABS: PARTIAL THROMBOPLASTIN TIME 33.5 Sec (23.0-35.0)
[2019-03-11 15:28] LABS: TROPONIN-I < 0.012 ng/ml (0.000-0.120)
[2019-03-11 15:29] LABS: BLOOD UREA NITROGEN 134 mg/dl (7-20)
[2019-03-11] MEDS ORDERED: ONDANSETRON 4 MG INJ IV (18:00)
[2019-03-11] MEDS: ACETAMINOPHEN 325 MG TAB PO (18:01)
[2019-03-11] MEDS: CA CHLORIDE 10% 10 ML SYRINGE IV (18:01)
[2019-03-11] MEDS: NA BICARBONATE 8.4% 50 ML SYG IV (18:02)
[2019-03-11] MEDS: ALBUTEROL 0.5% (NEB) 2.5 MG/0.5 ML AMP INH (18:07)
[2019-03-11] MEDS: SODIUM POLYSTYRENE 15 GM KIT (POWDER + SORBITOL) PO (18:12)
[2019-03-11] MEDS ORDERED: ONDANSETRON 4 MG TAB PO (18:30)
[2019-03-11] MEDS ORDERED: NACL 0.9% 3 ML SYG IV (18:30)
[2019-03-11] MEDS: HYDROCODONE/APAP (5/325) TAB PO (20:49)
[2019-03-11] MEDS: DORZOLAMIDE/TIMOLOL/PF 0.2 ML DROPERETTE BOTH EYES (20:50)
[2019-03-11] MEDS: DOCUSATE SODIUM 100 MG CAP PO (20:50)
[2019-03-11] MEDS: SEVELAMER CARBONATE 0.8 GM PKT PO (20:50)
[2019-03-11] MEDS: CLONIDINE 0.2 MG/24 HR PATCH TRANSDERM (20:50)
[2019-03-11] MEDS ORDERED: HEPARIN 5,000 UNIT/0.5 ML VIAL SC (21:00)
[2019-03-11] MEDS: INSULIN GLARGINE [LANTus] (100 UNITS/ML) SYG SC (21:00)
[2019-03-11] MEDS: HEPARIN 5,000 UNIT/1 ML VIAL SC (22:33)
[2019-03-12] MEDS: HYDROCODONE/APAP (5/325) TAB PO ×3 (01:21→17:42)
[2019-03-12] MEDS: HYDROmorphONE 1 MG/ML SYG IV ×5 (02:04→20:50)
[2019-03-12] MEDS: ONDANSETRON 4 MG INJ IV ×2 (02:13→08:47)
[2019-03-12] MEDS: SEVELAMER CARBONATE 0.8 GM PKT PO ×4 (08:00→20:48)
[2019-03-12] MEDS: BISACODYL 10 MG SUPP PR (08:49)
[2019-03-12] MEDS: HEPARIN 5,000 UNIT/1 ML VIAL SC ×2 (08:57→21:07)
[2019-03-12] MEDS: LINAGLIPTIN 5 MG TABLET PO (09:00)
[2019-03-12] MEDS: ATENOLOL 50 MG TAB PO (09:00)
[2019-03-12] MEDS: DORZOLAMIDE/TIMOLOL/PF 0.2 ML DROPERETTE BOTH EYES ×2 (09:00→21:00)
[2019-03-12] MEDS: NIFEdipine (XL) 90 MG TAB PO (09:00)
[2019-03-12] MEDS: FERROUS SULFATE 60 MG/ML 5ML CUP PO (09:00)
[2019-03-12] MEDS ORDERED: FERROUS SULFATE 220 MG/5 ML ML PO (09:00)
[2019-03-12] MEDS: LIDOCAINE 1% (MDV) 20 ML INJ INJ (10:31)
[2019-03-12 11:55] LABS: ANION GAP 27 (5-13); CALCIUM 10.6 mg/dl (8.4-10.2); CARBON DIOXIDE 28 mmol/L (21-31); CHLORIDE 90 mmol/L (97-110); Estimated GFR 4 mL/min (>60); GLUCOSE 143 mg/dl (70-220); POTASSIUM 5.9 mmol/L (3.5-5.1); SODIUM 145 mmol/L (135-144)
[2019-03-12 12:09] LABS: BLOOD UREA NITROGEN 143 mg/dl (7-20)
[2019-03-12 13:09] LABS: HEPATITIS B SURFACE ANTIGEN NEGATIVE (NEGATIVE)
[2019-03-12] MEDS: DOCUSATE SODIUM 100 MG CAP PO (20:47)
[2019-03-12] MEDS: NIFEdipine (XL) 30 MG TAB PO (20:47)
[2019-03-12] MEDS: INSULIN GLARGINE [LANTus] (100 UNITS/ML) SYG SC (21:07)
[2019-03-13] MEDS: LIDOCAINE 1% (MDV) 20 ML INJ INJ (07:43)
[2019-03-13] MEDS: SEVELAMER CARBONATE 0.8 GM PKT PO ×4 (08:00→20:52)
[2019-03-13] MEDS: DORZOLAMIDE/TIMOLOL/PF 0.2 ML DROPERETTE BOTH EYES ×3 (08:39→22:38)
[2019-03-13] MEDS: ATENOLOL 25 MG TAB PO (08:39)
[2019-03-13] MEDS: NIFEdipine (XL) 30 MG TAB PO ×2 (08:39→20:52)
[2019-03-13] MEDS: FERROUS SULFATE 60 MG/ML 5ML CUP PO (08:39)
[2019-03-13] MEDS: BISACODYL 10 MG SUPP PR (08:40)
[2019-03-13] MEDS: LINAGLIPTIN 5 MG TABLET PO (08:40)
[2019-03-13] MEDS: HEPARIN 5,000 UNIT/1 ML VIAL SC ×2 (08:40→20:46)
[2019-03-13] MEDS: HYDROmorphONE 1 MG/ML SYG IV (10:19)
[2019-03-13] MEDS: HYDROCODONE/APAP (5/325) TAB PO (15:21)
[2019-03-13] MEDS: DOCUSATE SODIUM 100 MG CAP PO (20:42)
[2019-03-13] MEDS: INSULIN GLARGINE [LANTus] (100 UNITS/ML) SYG SC (20:45)
[2019-03-14] MEDS ORDERED: hydrALAzine 20 MG INJ IV
[2019-03-14] MEDS: NIFEdipine (XL) 30 MG TAB PO ×3 (00:13→20:36)
[2019-03-14] MEDS: HYDROmorphONE 1 MG/ML SYG IV ×5 (01:09→20:29)
[2019-03-14 05:22] LABS: ADD MAN DIFF? NO
[2019-03-14 05:31] LABS: BASOPHILS % 0.2 % (0.0-2.0); EOSINOPHILS # 0.1 10^3/ul (0.0-0.5); EOSINOPHILS % 1.4 % (0.0-7.0); HEMATOCRIT 25.8 % (42.0-52.0); LYMPHOCYTES # 1.2 10^3/ul (0.8-2.9); LYMPHOCYTES % 14.1 % (15.0-51.0); MEAN CORPUSCULAR HEMOGLOBIN 29.7 pg (29.0-33.0); MEAN CORPUSCULAR VOLUME 95.9 fl (82.0-101.0); MONOCYTE # 0.7 10^3/ul (0.3-0.9); MONOCYTES % 8.6 % (0.0-11.0); NEUTROPHIL # 6.2 10^3/ul (1.6-7.5); NEUTROPHILS % 75.1 % (39.0-77.0); PLATELET COUNT 194 10^3/UL (140-415); RED BLOOD COUNT 2.69 10^6/ul (4.70-6.10); RED CELL DISTRIBUTION WIDTH 15.5 % (11.5-14.5)
[2019-03-14 05:31] LABS: WHITE BLOOD COUNT 8.3 10^3/ul (4.8-10.8)
[2019-03-14 06:04] LABS: ANION GAP 15 (5-13); BLOOD UREA NITROGEN 35 mg/dl (7-20); CALCIUM 10.6 mg/dl (8.4-10.2); CARBON DIOXIDE 34 mmol/L (21-31); CHLORIDE 98 mmol/L (97-110); CREATININE 4.91 mg/dl (0.61-1.24); Estimated GFR 12 mL/min (>60); GLUCOSE 111 mg/dl (70-220); MAGNESIUM 2.7 mg/dl (1.7-2.5); PHOSPHORUS 3.7 mg/dl (2.5-4.9); POTASSIUM 4.1 mmol/L (3.5-5.1); SODIUM 147 mmol/L (135-144)
[2019-03-14] MEDS: FERROUS SULFATE 60 MG/ML 5ML CUP PO (08:55)
[2019-03-14] MEDS: LINAGLIPTIN 5 MG TABLET PO (08:56)
[2019-03-14] MEDS: HYDROCODONE/APAP (5/325) TAB PO (08:56)
[2019-03-14] MEDS: SEVELAMER CARBONATE 0.8 GM PKT PO ×4 (08:57→20:37)
[2019-03-14] MEDS: DORZOLAMIDE/TIMOLOL/PF 0.2 ML DROPERETTE BOTH EYES ×2 (08:57→20:37)
[2019-03-14] MEDS: ATENOLOL 25 MG TAB PO ×2 (08:58→09:00)
[2019-03-14] MEDS: BISACODYL 10 MG SUPP PR (08:58)
[2019-03-14] MEDS: HEPARIN 5,000 UNIT/1 ML VIAL SC ×2 (09:10→20:45)
[2019-03-14] MEDS: DOCUSATE SODIUM 100 MG CAP PO (20:36)
[2019-03-14] MEDS: INSULIN GLARGINE [LANTus] (100 UNITS/ML) SYG SC (20:45)
[2019-03-15] MEDS: HYDROmorphONE 1 MG/ML SYG IV ×6 (00:31→21:19)
[2019-03-15] MEDS: HYDROCODONE/APAP (5/325) TAB PO ×2 (03:05→15:19)
[2019-03-15] MEDS: SEVELAMER CARBONATE 0.8 GM PKT PO ×4 (08:32→21:00)
[2019-03-15] MEDS: LINAGLIPTIN 5 MG TABLET PO (08:34)
[2019-03-15] MEDS: DORZOLAMIDE/TIMOLOL/PF 0.2 ML DROPERETTE BOTH EYES ×2 (08:34→20:59)
[2019-03-15] MEDS: FERROUS SULFATE 60 MG/ML 5ML CUP PO (08:34)
[2019-03-15] MEDS: HEPARIN 5,000 UNIT/1 ML VIAL SC ×2 (08:45→21:07)
[2019-03-15] MEDS: NIFEdipine (XL) 30 MG TAB PO ×2 (08:48→20:59)
[2019-03-15] MEDS: ATENOLOL 25 MG TAB PO (08:48)
[2019-03-15] MEDS: BISACODYL 10 MG SUPP PR (08:49)
[2019-03-15] MEDS ORDERED: ALBUMIN HUMAN 25% 100 ML IV (10:00)
[2019-03-15] MEDS: LIDOCAINE 1% (MDV) 20 ML INJ INJ (10:31)
[2019-03-15] MEDS: ACETAMINOPHEN 325 MG TAB PO (19:48)
[2019-03-15] MEDS: DOCUSATE SODIUM 100 MG CAP PO (20:56)
[2019-03-15] MEDS: INSULIN GLARGINE [LANTus] (100 UNITS/ML) SYG SC (21:06)
[2019-03-16] MEDS: HYDROmorphONE 1 MG/ML SYG IV ×6 (01:22→21:49)
[2019-03-16] MEDS: BISACODYL 10 MG SUPP PR (09:00)
[2019-03-16] MEDS: ATENOLOL 25 MG TAB PO (09:00)
[2019-03-16] MEDS: DORZOLAMIDE/TIMOLOL/PF 0.2 ML DROPERETTE BOTH EYES ×2 (09:22→22:14)
[2019-03-16] MEDS: SEVELAMER CARBONATE 0.8 GM PKT PO ×4 (09:22→22:15)
[2019-03-16] MEDS: FERROUS SULFATE 60 MG/ML 5ML CUP PO (09:22)
[2019-03-16] MEDS: LINAGLIPTIN 5 MG TABLET PO (09:22)
[2019-03-16] MEDS: NIFEdipine (XL) 30 MG TAB PO ×2 (09:25→22:14)
[2019-03-16] MEDS: HEPARIN 5,000 UNIT/1 ML VIAL SC ×2 (09:28→22:18)
[2019-03-16 10:26] LABS: ANION GAP 12 (5-13); BLOOD UREA NITROGEN 24 mg/dl (7-20); CALCIUM 10.1 mg/dl (8.4-10.2); CARBON DIOXIDE 31 mmol/L (21-31); CHLORIDE 98 mmol/L (97-110); CREATININE 4.35 mg/dl (0.61-1.24); Estimated GFR 14 mL/min (>60); GLUCOSE 93 mg/dl (70-220); POTASSIUM 4.1 mmol/L (3.5-5.1); SODIUM 141 mmol/L (135-144)
[2019-03-16] MEDS: ACETAMINOPHEN 325 MG TAB PO (15:36)
[2019-03-16] MEDS: HYDROCODONE/APAP (5/325) TAB PO (20:13)
[2019-03-16] MEDS: INSULIN GLARGINE [LANTus] (100 UNITS/ML) SYG SC ×2 (21:00→22:37)
[2019-03-16] MEDS: DOCUSATE SODIUM 100 MG CAP PO (22:14)
[2019-03-17] MEDS: HYDROmorphONE 1 MG/ML SYG IV ×7 (00:52→20:29)
[2019-03-17] MEDS ORDERED: BISACODYL (EC) 5 MG TAB PO (07:00)
[2019-03-17] MEDS: LIDOCAINE 1% (MDV) 20 ML INJ INJ (08:17)
[2019-03-17] MEDS: SEVELAMER CARBONATE 0.8 GM PKT PO ×4 (09:00→20:32)
[2019-03-17] MEDS: ATENOLOL 25 MG TAB PO (09:00)
[2019-03-17] MEDS: NIFEdipine (XL) 30 MG TAB PO ×2 (09:00→20:32)
[2019-03-17] MEDS: LINAGLIPTIN 5 MG TABLET PO (09:00)
[2019-03-17] MEDS: DORZOLAMIDE/TIMOLOL/PF 0.2 ML DROPERETTE BOTH EYES ×2 (09:19→20:32)
[2019-03-17] MEDS: BISACODYL 10 MG SUPP PR (09:19)
[2019-03-17] MEDS: FERROUS SULFATE 60 MG/ML 5ML CUP PO (09:19)
[2019-03-17] MEDS: HEPARIN 5,000 UNIT/1 ML VIAL SC ×2 (09:21→20:34)
[2019-03-17] MEDS: ACETAMINOPHEN 325 MG TAB PO (13:25)
[2019-03-17] MEDS: LACTULOSE 30ML CUP PO (16:00)
[2019-03-17] MEDS: DOCUSATE SODIUM 100 MG CAP PO (20:31)
[2019-03-17] MEDS: INSULIN GLARGINE [LANTus] (100 UNITS/ML) SYG SC (20:40)
[2019-03-18] MEDS: HYDROmorphONE 1 MG/ML SYG IV ×4 (01:51→15:32)
[2019-03-18] MEDS: SEVELAMER CARBONATE 0.8 GM PKT PO ×3 (08:23→17:35)
[2019-03-18] MEDS: FERROUS SULFATE 60 MG/ML 5ML CUP PO (08:24)
[2019-03-18] MEDS: ATENOLOL 25 MG TAB PO (08:25)
[2019-03-18] MEDS: NIFEdipine (XL) 30 MG TAB PO (08:26)
[2019-03-18] MEDS: LINAGLIPTIN 5 MG TABLET PO (08:26)
[2019-03-18] MEDS: HEPARIN 5,000 UNIT/1 ML VIAL SC (08:29)
[2019-03-18] MEDS: DORZOLAMIDE/TIMOLOL/PF 0.2 ML DROPERETTE BOTH EYES (08:35)
[2019-03-18] MEDS: BISACODYL 10 MG SUPP PR (08:36)
[2019-03-18] MEDS: EPOETIN ALFA-EPBX (ESRD) 10,000 UNIT/ML VIAL SC (17:12)
== END 2019-03-18 18:05 | DRG 640 ==
LOC: 6WM 03-12 03:38 → E/R 14:31 → 6WM 03-12 15:52 → PP2 03-16 18:37 → TEL 18:00
PROC: 5A1D70Z Performance of Urinary Filtration, Intermittent, Less than 6 Hours Per Day (ICD-10-PCS; 2019-03-12)
PROC: 5A1D70Z Performance of Urinary Filtration, Intermittent, Less than 6 Hours Per Day (ICD-10-PCS; 2019-03-15)
PROC: 5A1D70Z Performance of Urinary Filtration, Intermittent, Less than 6 Hours Per Day (ICD-10-PCS; principal; 2019-03-17)
DX: E87.5 Hyperkalemia (principal); N18.6 End stage renal disease; I12.0 Hypertensive chronic kidney disease with stage 5 chronic kidney disease or end stage renal disease; I16.9 Hypertensive crisis, unspecified; E11.22 Type 2 diabetes mellitus with diabetic chronic kidney disease; Z99.2 Dependence on renal dialysis; Z91.15 Patient's noncompliance with renal dialysis; Z79.4 Long term (current) use of insulin; I73.9 Peripheral vascular disease, unspecified; M47.816 Spondylosis without myelopathy or radiculopathy, lumbar region; D63.8 Anemia in other chronic diseases classified elsewhere; Z89.511 Acquired absence of right leg below knee; G89.29 Other chronic pain; R10.9 Unspecified abdominal pain; H54.8 Legal blindness, as defined in USA; E87.6 Hypokalemia; Z87.891 Personal history of nicotine dependence; Z86.73 Personal history of transient ischemic attack (TIA), and cerebral infarction without residual deficits
CPT/HCPCS: 71045; 80048; 80053; 82962; 83735; 84100; 84484; 85025; 85610; 85730; 87340; 90935; 93005; 94664; 97162; 99285-25; G0378

== ENCOUNTER 2019-04-09 15:43 | Inpatient (IN) | payer MEDICARE, OTHER ==
[~2019-04-09 15:43] MED LIST: ETOMIDATE 20 MG INJ; SUCCINYLCHOLINE CHLORIDE 100 MG/5 ML SYG IV
[2019-04-09] MEDS ORDERED: SOD CHLORIDE 0.9% 500 ML IV (15:51)
[2019-04-09] MEDS: CEFEPIME 1GM/50 ML (PMX) 50 ML IVPB (16:04)
[2019-04-09] MEDS: ONDANSETRON 4 MG INJ IV (16:04)
[2019-04-09] MEDS: SOD CHLORIDE 0.9% 0 ML IV (16:04)
[2019-04-09 16:11] LABS: ABNORMAL IP MESSAGE 1; HEMATOCRIT 35.2 % (42.0-52.0); MEAN CORPUSCULAR HEMOGLOBIN 30.3 pg (29.0-33.0); MEAN CORPUSCULAR HGB CONC 31.3 g/dl (32.0-37.0); MEAN PLATELET VOLUME 9.4 fl (7.4-10.4); NUCLEATED RED BLOOD CELLS% 0.1 /100WBC (0.0-0.0); PLATELET COUNT 202 10^3/UL (140-415); POSITIVE DIFF @See below; RED BLOOD COUNT 3.63 10^6/ul (4.70-6.10)
[2019-04-09 16:11] LABS: WHITE BLOOD COUNT 14.6 10^3/ul (4.8-10.8)
[2019-04-09 16:13] LABS: ADD MAN DIFF? YES
[2019-04-09] MEDS: morphine 4 MG/ML VIAL IV ×2 (16:28→17:46)
[2019-04-09 16:31] LABS: ALBUMIN 3.7 g/dl (3.3-4.9); ALBUMIN/GLOBULIN RATIO 1.02; ALKALINE PHOSPHATASE 123 IU/L (42-121); ANION GAP 24 (5-13); ASPARTATE AMINO TRANSFERASE 29 IU/L (15-46); BILIRUBIN,INDIRECT 0.1 mg/dl (0-1.1); BILIRUBIN,TOTAL 0.1 mg/dl (0.2-1.3); BLOOD UREA NITROGEN 67 mg/dl (7-20); CALCIUM 11.1 mg/dl (8.4-10.2); CARBON DIOXIDE 18 mmol/L (21-31); CHLORIDE 98 mmol/L (97-110); CREATININE 6.59 mg/dl (0.61-1.24); Estimated GFR 9 mL/min (>60); GLUCOSE 189 mg/dl (70-220); INR 1.62; POTASSIUM 5.4 mmol/L (3.5-5.1); PROTIME 19.3 Sec (11.9-14.9); PT RATIO 1.5; SODIUM 140 mmol/L (135-144); TOTAL PROTEIN 7.3 g/dl (6.1-8.1)
[2019-04-09 16:32] LABS: ALANINE AMINOTRANSFERASE < 6 IU/L (13-69)
[2019-04-09 16:42] LABS: TROPONIN-I 0.014 ng/ml (0.000-0.120)
[2019-04-09] MEDS: NA BICARBONATE 8.4% 50 ML SYG IV (16:48)
[2019-04-09] MEDS: VANCOMYCIN 1 GM (PMX) 250 ML IVPB (16:49)
[2019-04-09] MEDS: SODIUM CHLORIDE 0.9% 1L BAG IV* (16:49)
[2019-04-09 17:08] LABS: BAND NEUTROPHILS #M 7.4 10^3/ul (0.0-0.6); BAND NEUTROPHILS % (M) 51 % (0-4); BURR CELLS 2+ (0-0); LYMPHOCYTES % (M) 7 % (15-51); METAMYELOCYTES #M 0.4 10^3/ul (0.0-0.0); METAMYELOCYTES %M 3 % (0-0); MONOCYTE #M 1.6 10^3/ul (0.3-0.9); MONOCYTES % (M) 11 % (0-11); MYELOCYTES #M 0.2 10^3/ul (0.0-0.0); MYELOCYTES % (M) 2 % (0-0); PLATELET ESTIMATE NORMAL; POIKILOCYTOSIS 2+ (0-0); POLYCHROMASIA 2+ (0-0); SEG NEUT #M 4.9 10^3/ul (1.6-7.5); SEGMENTED NEUTROPHILS (M) % 26 % (39-77); SMUDGE%M 7 % (0-0)
[2019-04-09] MEDS: LIDOCAINE 1% (MPF) 5 ML VIAL SC (19:40)
[2019-04-09 20:30] LABS: IMMEDIATE SPIN CROSSMATCH 1 2
[2019-04-09] MEDS ORDERED: NORepinephrine 8MG/250 ML (PMX 250 ML (23:28)
[2019-04-09] MEDS ORDERED: ONDANSETRON 4 MG INJ IV (23:30)
[2019-04-09] MEDS ORDERED: NACL 0.9% 3 ML SYG IV (23:30)
[2019-04-09] MEDS ORDERED: ACETAMINOPHEN 650 MG SUPP PR (23:30)
[2019-04-09] MEDS ORDERED: morphine 2 MG INJ IV (23:30)
[2019-04-09] MEDS: NORepinephrine 8MG/250 ML (PMX 250 ML IV (23:59)
[2019-04-10] MEDS: SOD CHLORIDE 0.9% 1,000 ML IV ×3 (00:09→14:15)
[2019-04-10 00:27] LABS: WHITE BLOOD COUNT 7.2 10^3/ul (4.8-10.8)
[2019-04-10 00:27] LABS: ABNORMAL IP MESSAGE 1; HEMATOCRIT 33.2 % (42.0-52.0); HEMOGLOBIN 10.3 g/dl (14.0-18.0); MEAN CORPUSCULAR HEMOGLOBIN 29.2 pg (29.0-33.0); MEAN CORPUSCULAR VOLUME 94.1 fl (82.0-101.0); MEAN PLATELET VOLUME 9.9 fl (7.4-10.4); PLATELET COUNT 154 10^3/UL (140-415); POSITIVE DIFF @See below; RED BLOOD COUNT 3.53 10^6/ul (4.70-6.10); RED CELL DISTRIBUTION WIDTH 18.4 % (11.5-14.5)
[2019-04-10 00:28] LABS: ADD MAN DIFF? YES
[2019-04-10 00:44] LABS: AADO2 Arterial 173.4 mmHg (7.0-24.0); Allen Test ACCEPTAB; Arterial Base Excess -8.3 mmol/L (-3.0-3); Arterial Blood Gas Oxygen Sat 78.2 mmHG (95.0-98.0); Arterial COHb 2.5 % (0.0-3.0); Arterial HCO3 19.3 mmol/L (22.0-26.0); Arterial MetHb 0.3 % (0.0-1.5); Arterial pCO2 47.4 mmhg (35-45); MODE NASAL CANNULA; Site Right Radial
[2019-04-10 00:49] LABS: ANION GAP 14 (5-13); BLOOD UREA NITROGEN 62 mg/dl (7-20); CALCIUM 7.7 mg/dl (8.4-10.2); CARBON DIOXIDE 18 mmol/L (21-31); CHLORIDE 112 mmol/L (97-110); CREATININE 4.17 mg/dl (0.61-1.24); Estimated GFR 15 mL/min (>60); GLUCOSE 114 mg/dl (70-220); POTASSIUM 4.3 mmol/L (3.5-5.1); SODIUM 144 mmol/L (135-144)
[2019-04-10 01:24] LABS: ANISOCYTOSIS 1+ (0-0); BAND NEUTROPHILS #M 2.9 10^3/ul (0.0-0.6); BAND NEUTROPHILS % (M) 41 % (0-4); GIANT THROMBO% (M) 2 % (0-0); LYMPHOCYTES % (M) 15 % (15-51); METAMYELOCYTES #M 0.2 10^3/ul (0.0-0.0); METAMYELOCYTES %M 3 % (0-0); MONOCYTE #M 0.7 10^3/ul (0.3-0.9); MONOCYTES % (M) 11 % (0-11); MYELOCYTES #M 0.2 10^3/ul (0.0-0.0); MYELOCYTES % (M) 4 % (0-0); PLATELET ESTIMATE NORMAL; POIKILOCYTOSIS 2+ (0-0); PROMYELOCYTES #M 0.1 10^3/ul (0-0); PROMYELOCYTES % (M) 2 % (0-0); REACTIVE LYMPHOCYTES #M 0.4 10^3/ul (0.0-0.0); REACTIVE LYMPHOCYTES% (M) 6 % (0-0); SEG NEUT #M 1.5 10^3/ul (1.6-7.5); SEGMENTED NEUTROPHILS (M) % 18 % (39-77); SMUDGE%M 55 % (0-0)
[2019-04-10 05:33] LABS: AADO2 Arterial 595.9 mmHg (7.0-24.0); Arterial Base Excess -7.9 mmol/L (-3.0-3); Arterial Blood Gas Oxygen Sat 93.6 mmHG (95.0-98.0); Arterial COHb 1.9 % (0.0-3.0); Arterial Fraction of Oxyhgb 91.5 % (93.0-99.0); Arterial HCO3 18.3 mmol/L (22.0-26.0); Arterial MetHb 0.3 % (0.0-1.5); Arterial pCO2 39.9 mmhg (35-45); Blood Gas IEPAP 18/8; Blood Gas PS 10; MODE MASK - BIPAP; Site Right Brachial
[2019-04-10] MEDS: PANTOPRAZOLE 40 MG INJ IV ×3 (05:47→21:13)
[2019-04-10] MEDS: NORepinephrine 8MG/250 ML (PMX 250 ML IV ×4 (06:50→21:18)
[2019-04-10] MEDS: PHENYLephrine 20MG IN 250 ML 250 ML IV ×4 (10:30→22:09)
[2019-04-10] MEDS: FENTAnyl (DRIP) 1000 mcg/100mL 100 ML IV ×2 (11:03→23:57)
[2019-04-10] MEDS: MIDAZOLAM (DRIP) 50 mg/50 mL 50 ML IV (11:20)
[2019-04-10 12:01] LABS: HAAIG REFLEX REFLEX FILED
[2019-04-10 12:41] LABS: HEPATITIS B SURFACE ANTIGEN NEGATIVE (NEGATIVE)
[2019-04-10 12:42] LABS: AADO2 Arterial 603.3 mmHg (7.0-24.0); Allen Test ACCEPTAB; Arterial Base Excess -13.7 mmol/L (-3.0-3); Arterial Blood Gas Oxygen Sat 90.6 mmHG (95.0-98.0); Arterial COHb 2.1 % (0.0-3.0); Arterial Fraction of Oxyhgb 88.4 % (93.0-99.0); Arterial HCO3 13.8 mmol/L (22.0-26.0); Arterial MetHb 0.3 % (0.0-1.5); Arterial pCO2 37.7 mmhg (35-45); MODE VENT - AC; Site Right Radial
[2019-04-10 12:59] LABS: HEPATITIS B CORE ANTIBODY REACTIVE (NEGATIVE); HEPATITIS C VIRAL ANTIBODY NEGATIVE (NEGATIVE)
[2019-04-10] MEDS ORDERED: VANCOMYCIN IV PER PHARMACY XX (13:00)
[2019-04-10] MEDS: NA BICARBONATE 8.4% 50 ML SYG IV (13:19)
[2019-04-10] MEDS: MEROPENEM 500MG/50 ML (PMX) 50 ML IVPB (14:13)
[2019-04-11] MEDS: NORepinephrine 8MG/250 ML (PMX 250 ML IV ×2 (01:10→04:51)
[2019-04-11] MEDS: PHENYLephrine 20MG IN 250 ML 250 ML IV ×2 (01:10→04:11)
[2019-04-11] MEDS: SOD CHLORIDE 0.9% 1,000 ML IV ×2 (03:35→12:20)
[2019-04-11 05:07] LABS: WHITE BLOOD COUNT 10.1 10^3/ul (4.8-10.8)
[2019-04-11 05:08] LABS: ABNORMAL IP MESSAGE 1; HEMATOCRIT 35.7 % (42.0-52.0); HEMOGLOBIN 10.9 g/dl (14.0-18.0); MEAN CORPUSCULAR HEMOGLOBIN 28.5 pg (29.0-33.0); MEAN CORPUSCULAR HGB CONC 30.5 g/dl (32.0-37.0); MEAN CORPUSCULAR VOLUME 93.2 fl (82.0-101.0); NUCLEATED RED BLOOD CELLS% 4.9 /100WBC (0.0-0.0); PLATELET COUNT 208 10^3/UL (140-415); POSITIVE DIFF @See below; RED BLOOD COUNT 3.83 10^6/ul (4.70-6.10); RED CELL DISTRIBUTION WIDTH 19.4 % (11.5-14.5)
[2019-04-11 05:10] LABS: ADD MAN DIFF? YES
[2019-04-11] MEDS: MIDAZOLAM (DRIP) 50 mg/50 mL 50 ML IV (05:25)
[2019-04-11] MEDS ORDERED: DOPamine 1,600 MG in DEXTROSE 5% 210 ML IV (06:00)
[2019-04-11] MEDS: PHENYLephrine 80 MG in DEXTROSE 5% 242 ML IV ×3 (06:16→17:10)
[2019-04-11] MEDS ORDERED: DEXTROSE 50% 50 ML SYRINGE (06:17)
[2019-04-11] MEDS: DEXTROSE 50% 50 ML SYRINGE IV ×8 (06:26→13:30)
[2019-04-11] MEDS: NORepinephrine 32 MG in DEXTROSE 5% 218 ML IV (06:40)
[2019-04-11] MEDS ORDERED: DEXTROSE 50% 50 ML SYRINGE IV (07:00)
[2019-04-11] MEDS ORDERED: GLUCOSE GEL 15 GRAM TUBE PO ×2 (07:00)
[2019-04-11] MEDS ORDERED: GLUCAGON 1 MG INJ IM (07:00)
[2019-04-11] MEDS ORDERED: GLUCOSE GEL 15 GRAM TUBE BUCCAL (07:00)
[2019-04-11 07:07] LABS: ADD MAN DIFF? NO
[2019-04-11 07:09] LABS: WHITE BLOOD COUNT 10.7 10^3/ul (4.8-10.8)
[2019-04-11 07:10] LABS: ABNORMAL IP MESSAGE 1; BASOPHILS % 0.1 % (0.0-2.0); EOSINOPHILS % 0.2 % (0.0-7.0); HEMATOCRIT 33.8 % (42.0-52.0); HEMOGLOBIN 10.2 g/dl (14.0-18.0); MEAN CORPUSCULAR HEMOGLOBIN 29.1 pg (29.0-33.0); MEAN CORPUSCULAR HGB CONC 30.2 g/dl (32.0-37.0); MEAN CORPUSCULAR VOLUME 96.3 fl (82.0-101.0); MEAN PLATELET VOLUME 9.7 fl (7.4-10.4); MONOCYTE # 1.2 10^3/ul (0.3-0.9); MONOCYTES % 10.8 % (0.0-11.0); NEUTROPHIL # 6.7 10^3/ul (1.6-7.5); NEUTROPHILS % 62.6 % (39.0-77.0); NUCLEATED RED BLOOD CELLS # 0.4 10^3/ul (0.0-0.0); PLATELET COUNT 187 10^3/UL (140-415); POSITIVE DIFF @See below; RED BLOOD COUNT 3.51 10^6/ul (4.70-6.10); RED CELL DISTRIBUTION WIDTH 19.6 % (11.5-14.5)
[2019-04-11 07:39] LABS: ALANINE AMINOTRANSFERASE 532 IU/L (13-69); ALBUMIN 2.4 g/dl (3.3-4.9); ALBUMIN/GLOBULIN RATIO 0.82; ALKALINE PHOSPHATASE 107 IU/L (42-121); ANION GAP 21 (5-13); BILIRUBIN,INDIRECT 0.1 mg/dl (0-1.1); BILIRUBIN,TOTAL 0.1 mg/dl (0.2-1.3); BLOOD UREA NITROGEN 92 mg/dl (7-20); CALCIUM 8.5 mg/dl (8.4-10.2); CARBON DIOXIDE 12 mmol/L (21-31); CHLORIDE 111 mmol/L (97-110); GLUCOSE 187 mg/dl (70-220); MAGNESIUM 2.6 mg/dl (1.7-2.5); SODIUM 144 mmol/L (135-144); TOTAL PROTEIN 5.3 g/dl (6.1-8.1)
[2019-04-11 07:40] LABS: LACTIC ACID 10.3 mmol/L (0.5-2.0)
[2019-04-11 07:45] LABS: Estimated GFR 10 mL/min (>60)
[2019-04-11] MEDS: DEXTROSE 5%-0.9% NACL 1,000 ML IV (08:04)
[2019-04-11 08:26] LABS: ASPARTATE AMINO TRANSFERASE 1926 IU/L (15-46); CREATININE 5.96 mg/dl (0.61-1.24)
[2019-04-11 08:27] LABS: POTASSIUM 7.1 mmol/L (3.5-5.1)
[2019-04-11 08:55] LABS: AADO2 Arterial 579.4 mmHg (7.0-24.0); Allen Test ACCEPTAB; Arterial Base Excess -21.6 mmol/L (-3.0-3); Arterial Fraction of Oxyhgb 90.9 % (93.0-99.0); Arterial HCO3 9.4 mmol/L (22.0-26.0); Arterial MetHb 0.3 % (0.0-1.5); Arterial pCO2 40.9 mmhg (35-45); MODE VENT - AC; Site Right Radial
[2019-04-11] MEDS: PANTOPRAZOLE 40 MG INJ IV (09:01)
[2019-04-11] MEDS: MEROPENEM 500MG/50 ML (PMX) 50 ML IVPB (09:01)
[2019-04-11] MEDS: NA BICARBONATE 8.4% 50 ML SYG IV (09:04)
[2019-04-11] MEDS: VASOPRESSIN 60 UNIT in DEXTROSE 5% 57 ML IV (10:15)
[2019-04-11] MEDS: PHYTONADIONE 10 MG/ML INJ SC (10:38)
[2019-04-11] MEDS: HYDROCORTISONE 100 MG INJ IV ×2 (10:38→14:41)
[2019-04-11 11:55] LABS: ANISOCYTOSIS 2+ (0-0); BAND NEUTROPHILS #M 5.1 10^3/ul (0.0-0.6); BAND NEUTROPHILS % (M) 51 % (0-4); BURR CELLS 3+ (0-0); ERYTHROBLAST% (NRBC) (M) 7 % (0-0); LYMPHOCYTES #M 2.5 10^3/ul (0.8-2.9); LYMPHOCYTES % (M) 25 % (15-51); METAMYELOCYTES #M 0.3 10^3/ul (0.0-0.0); METAMYELOCYTES %M 3 % (0-0); MONOCYTE #M 0.9 10^3/ul (0.3-0.9); MONOCYTES % (M) 9 % (0-11); MYELOCYTES #M 0.1 10^3/ul (0.0-0.0); MYELOCYTES % (M) 1 % (0-0); PLATELET ESTIMATE NORMAL; POIKILOCYTOSIS 3+ (0-0); POLYCHROMASIA 2+ (0-0); REACTIVE LYMPHOCYTES #M 0.3 10^3/ul (0.0-0.0); REACTIVE LYMPHOCYTES% (M) 3 % (0-0); SEG NEUT #M 1.3 10^3/ul (1.6-7.5); SEGMENTED NEUTROPHILS (M) % 8 % (39-77); SMUDGE%M 15 % (0-0); TARGET CELLS 1+ (0-0)
[2019-04-11] MEDS: DEXTROSE 10% 1,000 ML IV (12:20)
[2019-04-11] MEDS ORDERED: ARTIFICIAL TEARS 15 ML OPH BOTH EYES ×2 (12:30→12:39)
[2019-04-11] MEDS ORDERED: ALBUMIN HUMAN 25% 100 ML IV (13:30)
[2019-04-11] MEDS ORDERED: ALBUMIN HUMAN 25% 100 ML (13:35)
[2019-04-11] MEDS: ACETAMINOPHEN 1000MG/100ML IV 100 ML IVPB (14:41)
[2019-04-11] MEDS: SODIUM CHLORIDE 23.4% 154 MEQ in DEXTROSE 10% 1,000 ML IV (15:00)
[2019-04-11] MEDS: VANCOMYCIN 1 GM 250 ML IVPB (17:00)
[2019-04-11] MEDS ORDERED: EPINEPHrine 4 MG in DEXTROSE 5% 246 ML IV (19:30)
[2019-04-12] MEDS ORDERED: PHYTONADIONE 10 MG/ML INJ SC (09:00)
== END 2019-04-11 19:22 | disposition expired | DRG 871 ==
LOC: E/R 15:43 → ICU 17:06
PROVIDERS: Internal Medicine
PROC: 30233N1 Transfusion of Nonautologous Red Blood Cells into Peripheral Vein, Percutaneous Approach (ICD-10-PCS; 2019-04-09)
PROC: 0BH17EZ Insertion of Endotracheal Airway into Trachea, Via Natural or Artificial Opening (ICD-10-PCS; principal; 2019-04-10)
PROC: 5A1945Z Respiratory Ventilation, 24-96 Consecutive Hours (ICD-10-PCS; 2019-04-10)
PROC: 5A1D70Z Performance of Urinary Filtration, Intermittent, Less than 6 Hours Per Day (ICD-10-PCS; 2019-04-10)
PROC: 4A133R1 Monitoring of Arterial Saturation, Peripheral, Percutaneous Approach (ICD-10-PCS; 2019-04-10)
PROC: 06HN33Z Insertion of Infusion Device into Left Femoral Vein, Percutaneous Approach (ICD-10-PCS; 2019-04-10)
PROC: B54CZZA Ultrasonography of Left Lower Extremity Veins, Guidance (ICD-10-PCS; 2019-04-10)
PROC: 5A12012 Performance of Cardiac Output, Single, Manual (ICD-10-PCS; 2019-04-11)
DX: A41.9 Sepsis, unspecified organism (principal); R65.21 Severe sepsis with septic shock; J18.9 Pneumonia, unspecified organism; G92 Toxic encephalopathy; N18.6 End stage renal disease; J96.01 Acute respiratory failure with hypoxia; K55.9 Vascular disorder of intestine, unspecified; I13.2 Hypertensive heart and chronic kidney disease with heart failure and with stage 5 chronic kidney disease, or end stage renal disease; K92.2 Gastrointestinal hemorrhage, unspecified; E11.22 Type 2 diabetes mellitus with diabetic chronic kidney disease; I50.9 Heart failure, unspecified; I46.9 Cardiac arrest, cause unspecified; I25.10 Atherosclerotic heart disease of native coronary artery without angina pectoris; D63.8 Anemia in other chronic diseases classified elsewhere; E11.51 Type 2 diabetes mellitus with diabetic peripheral angiopathy without gangrene; H54.8 Legal blindness, as defined in USA; E11.42 Type 2 diabetes mellitus with diabetic polyneuropathy; Z86.14 Personal history of Methicillin resistant Staphylococcus aureus infection; Z99.2 Dependence on renal dialysis; Z86.73 Personal history of transient ischemic attack (TIA), and cerebral infarction without residual deficits; Z79.4 Long term (current) use of insulin; Z89.511 Acquired absence of right leg below knee
CPT/HCPCS: 31500; 36415; 36430; 36600; 71045; 74018; 74176; 76705; 80048; 80053; 80202; 82803; 82962; 83605; 83735; 84100; 84484; 85025; 85610; 85730; 86704; 86709; 86803; 86850; 86900; 86901; 86920; 87040-91; 87081; 87340; 90935; 92950; 93005; 94002; 94003; 94660; 94770; 96374; 96375; 99285-25